=== PATIENT | female | born 1965 | race Caucasian/White ===

== ENCOUNTER → 2016-04-03 | Outpatient (CLI) | payer BC ==
[2016-03-31 12:59] VITALS: BMI 30.1
[2016-04-03 11:48] VITALS: BP 128/66; PULSE 79; RESP 16; TEMP 97.9
--- NOTE | 2016-04-03 12:37 | P.CONS ---
History of Present Illness - Reason for Consult Consult date: 04/03/16 - History of Present Illness This is the initial consultation visit for this 51 years old female with more than 5 years history of neck pain, intensity of the pain increased over the last year, she denies any history of trauma or heavy lifting, she denies any change in the bowel movement or urination, she denies any motor or sensory deficit, she reported that the neck pain associated with headache and radiated to the shoulder blade area, occasional numbness and tingling sensation in the upper extremity right side more than the left side, she tried the physical therapy, and this helped to some degree, and she was evaluated by Dr. Abreu orthopedic surgeon, and he started her on oral steroids and this helped significantly for 2 months, and later on the pain came back again, currently she is complaining of severe neck pain and headache, the neck pain increased with any neck movement, but there is no restriction to any neck movement Past Medical History Past Medical History: Musculoskeletal Disorder, Osteoarthritis (OA) Additional Past Medical History / Comment(s): BACK PAIN. History of Any Multi-Drug Resistant Organisms: None Reported Past Surgical History: No Surgical Hx Reported Additional Past Surgical History / Comment(s): ? 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 ago Past Anesthesia/Blood Transfusion Reactions: No Reported Reaction Past Psychological History: Anxiety, Depression Smoking Status: Never smoker Past Alcohol Use History: None Reported Past Drug Use History: None Reported - Past Family History Mother Family Medical History: No Reported History Medications and Allergies Home Medications Medication Instructions Recorded Confirmed Type buPROPion HCL [Wellbutrin XL] 300 mg PO DAILY 03/31/16 04/03/16 History lamoTRIgine [LaMICtal] 400 mg PO DAILY 03/31/16 04/03/16 History traZODone HCL 50 mg PO BID 03/31/16 04/03/16 History Allergies Allergy/AdvReac Type Severity Reaction Status Date / Time No Known Allergies Allergy Verified 04/03/16 11:32 Physical Exam Vitals: Vital Signs Temp Pulse Resp BP Pulse Ox 04/03/16 11:39 97.9 F 79 16 128/66 99 Social history : not smoker , NO ETOH , NO Illegal drugs use Review of Systems : 1- Constitutional : no chills , no fever , no night sweats , 2- Ears : no ear discharge , no change in hearing 3-Nose, Mouth ,Throat ; no bleeding gums, no sore throat , no epistaxis , 4-Cardiovascular : Denies chest pain, , no orthopnea , no palpitation 5-Respiratory : Denies cough , no dyspnea , no hemoptysis 6-Gastrointestinal :, no change in bowel habits , no coffee- ground emesis . 7-Genitourinary : No hematuria , no discharge , no incontinence, 8-Musculoskeletal : No gait dysfunction , report low back pain , 9- Neurological : no ataxia , no tremor , no sezure , 10-Psychatric , no suicidal ideation no hallucination 11- Endocrine : no cold intolerence , no polyuria , no polydypsia , 12-Hematologic : no easy bleeding , no easy brusing , 13-Allergic / immunology : no angioedema , no wheezing ,no allergic rhinitis 14-Integumentary : no brttle nails , no change hair / nails , no foot/leg ulcers . Physical Examinations : 1-Constitutional : Cooperative , not in acute distress . 2-HEENT : nech ; supple , no Lymphadenopathy , no Thyromegaly , eyes , no icterus, no photophobia . ENT : , normal oropharynx , no Thrush 3- Respiratory : Chest clear to auscultations Bilaterally , no wheezing . 4- Cardiovascular : regular rate and rhythem , S1 , S2 , no S3 , no S4. 5- Gastrointestinal: abdomen soft no tenderness , no organomegally . 6- Genitourinary : Defferred . 7-Integumentary : No cellulitis , no ulcers , normal skin turgor , no cyanotic . 8- neurologic : Cranial nerve II to XII intact , no focal neurological deffecit 9-psychatric : alert , oriented X 3 , appropriate affect , intact judgment and insight . 10-Lymphatic : no Lymphadenopathy. 11- musculoskeltal: normal gait , exams of the cervical spine = motor stregnth in the deltoid and biceps, normal right side , normal Left side , motor stregnth biceps and the wrist extensors normal right side ,normal left side . motor stregnth in the triceps muscle . normal Right side , normal Left side deep tendon reflexes normal at the biceps , normal at Brachioradialis , normal at triceps. positive cervical facet loading test . exams of the Lumber spine = moter stegnth lower extremities , thigh and legs 5/5 Right side , 5/5 Left side Results Comments: MRI of the cervical spine= C5 6 disc herniation, and C6 7 disc bulging, and cervical facet arthropathy, multilevel foraminal encroachment Assessment and Plan Plan: Assessment and plan = -Chronic neck pain secondary to cervical degenerative disc disease, cervical herniated disc disease , cervical spondylosis with cervical facet arthropathy, without myelopathy , cervicogenic headache - diagnoses, prognosis, and treatment options including but not limited to physical therapy, surgical interventions, interventional therapies and medication management including narcotics and adjuvant medication were discussed with the patient and all questions answered to the patient's satisfaction. -medications= 1-she could benefit from Neurontin 100 mg 3 times a day, continue Motrin 800 mg 3 times a day -procedure= scheduled patient to our cervical epidural steroid injection, and if she continued to have pain after the epidural steroid injection , then we will consider doing diagnostic medial branch block cervical area. Time with Patient: Greater than 30
== END | disposition home or self-care (01) ==
LOC: PNWHC3 11:06
PROVIDERS: ATTEND Specialist
DX: M50.30 Other cervical disc degeneration, unspecified cervical region (principal); M50.20 Other cervical disc displacement, unspecified cervical region; M47.812 Spondylosis without myelopathy or radiculopathy, cervical region; M46.92 Unspecified inflammatory spondylopathy, cervical region; R51 Headache; Z79.899 Other long term (current) drug therapy; M19.90 Unspecified osteoarthritis, unspecified site
CPT/HCPCS: 99211

== ENCOUNTER 2016-04-07 08:53 | Day surgery (SDC) | payer BC ==
[2016-04-05 08:54] VITALS: BMI 30.9
[~2016-04-07 08:53] MED LIST: LACTATED RINGERS 1,000 ML IV SCH
[2016-04-07] MEDS ORDERED: LIDOCAINE 1% 20 ML VIAL (10MG/ML) FOR IV START INTRADERMA ONE (09:50)
[2016-04-07 10:00] VITALS: TEMP 98
[2016-04-07] MEDS ORDERED: MIDAZOLAM 2 MG/2 ML VIAL ONE (11:07)
[2016-04-07] MEDS ORDERED: TRIAMCINOLONE ACETONIDE 40 MG/ML 1 ML VIAL ONE (11:07)
[2016-04-07] MEDS ORDERED: fentaNYL (PF) 50 MCG/ML 2 ML AMP ONE (11:07)
[2016-04-07] MEDS ORDERED: IOHEXOL 180 MG/ML 1 ML ML ONE (11:07)
--- NOTE | 2016-04-07 11:27 | P.PCN ---
Date of Procedure: 04/07/16 Procedure(s) Performed: . PROCEDURE 1. Cervical epidural steroid injection under fluoroscopic guidance, C7-T1 2. Cervical epidurogram. PREOPERATIVE DIAGNOSIS: 1- Cervical Degenerative Disc Diseases 2- Cervical herniated disc disease., 3-cervical spondylosis with cervical Facet arthropathy without myelopathy POSTOPERATIVE DIAGNOSIS: : 1- Cervical Degenerative Disc Diseases , 2- Cervical herniated disc disease. 3-,cervical spondylosis with cervical Facet arthropathy without myelopathy ANESTHESIA: Local anesthesia with 1% lidocaine and IV sedation with Versed 3 mg and Fentanyl 100 mcg. EBL 0 PROCEDURE INDICATION: The patient with neck pain and radiculitis unresponsive to conservative treatment consents for procedure. PROCEDURE DESCRIPTION / TECHNIQUE: The patient was seen and identified in the preoperative area. Risks, benefits, complications, including but not limited to infections ,bleeding , allergic reactions to the medications ,and not complete pain releife, and alternatives were discussed with the patient, the patient agreed to proceed with the procedure and signed the consent. Patient was taken to the OR and time out was completed. The patient was placed in the prone position on the procedure table. A pillow was placed under the patients chest to increase the cervical interlaminar space. The cervical area was prepped and draped in the usual sterile fashion. Vital signs were closely monitored during the procedure. Conscious sedation was used during the procedure to decrease patients anxiety. Using anterior-posterior fluoroscopy, the C7-T1 interlaminar space was identified and the skin over this site was marked and then infiltrated with 1% lidocaine subcutaneously. Subsequently, a 20-gauge 3-1/2-inch Tuohy epidural needle was inserted and advanced toward the epidural space by means of the hanging-drop technique and guided by AP and lateral fluoroscopy. The correct needle position in the epidural space was verified with the injection of 2 mL of the water soluble contrast dye Isovue-180 and observing an excellent epidurogram with the epidural spread of the dye, after negative aspiration for blood and CSF and in the absence of paresthesias. Again after negative aspiration, mixture containing 20 mg Dexamethasone and 2 ml of preservative- free normal saline injected and a washout of epidurogram was seen. Needle was withdrawn intact, skin was cleansed, and bandages were applied. Complications= none. Disposition= patient was placed in supine position and transferred to the recovery room area in stable condition and there was no evidence of upper or lower extremity motor or sensory deficit after the procedure patient was discharged from recovery room after discharge criteria met and home discharge instructions was given by the staff and patient will follow with the pain clinic in 2-4 weeks
[2016-04-07] MEDS ORDERED: IV FLUID CONTINUATION 300 ML IV ONE ×2 (11:30)
[2016-04-07 12:01] VITALS: RESP 18
[2016-04-07 12:03] VITALS: BP 105/67; PULSE 78
--- NOTE | 2016-04-07 12:07 | FL ---
EXAMINATION TYPE: FL guided pain mgmt statistic DATE OF EXAM: 04/07/2016 11:33 AM FLUOROSCOPY Fluoroscopy time of 3 seconds was used during cervical epidural injection. 1 image/s document/s the procedure.
--- NOTE | 2016-04-07 12:51 | P.PN ---
Progress Note - Text This is an addendum to the note dictated today= patient reported that she had frequent episodes of headache, and she is requesting medication to her headache ,she already tried Imitrex without any benefit, and she is having 4-5 episodes of migraine headache every week, for this reason I will start her on amitriptyline 10 mg daily at bedtime, and this will be given to help her sleep because patient had difficulty sleeping at night, and adjuvant to help her pain , and patient instructed to stop taking trazodone, and she is giving us a prescription for Fioricet 1 tablet by mouth every 8 hours when necessary for headache dispense 30
== END 2016-04-07 12:55 | disposition home or self-care (01) ==
LOC: ORPAIN 08:53
PROVIDERS: ATTEND Specialist
DX: G89.29 Other chronic pain (principal); M54.2 Cervicalgia; M50.30 Other cervical disc degeneration, unspecified cervical region; M50.20 Other cervical disc displacement, unspecified cervical region; M47.812 Spondylosis without myelopathy or radiculopathy, cervical region; M46.92 Unspecified inflammatory spondylopathy, cervical region; R51 Headache; M19.90 Unspecified osteoarthritis, unspecified site; F41.9 Anxiety disorder, unspecified; F32.9 Major depressive disorder, single episode, unspecified; Z79.1 Long term (current) use of non-steroidal anti-inflammatories (NSAID); Z79.899 Other long term (current) drug therapy
CPT/HCPCS: 81025; 62321; J2250; J3301; Q9965; J3010

== ENCOUNTER → 2016-04-20 | Outpatient (CLI) | payer BC ==
[2016-04-20 12:26] VITALS: BP 124/83; PULSE 67; RESP 18
--- NOTE | 2016-04-20 16:08 | P.PN ---
Subjective This is follow-up visit for this patient with a history of severe and chronic neck pain, and headache pain secondary to cervical degenerative disc disease, cervical spondylosis , we have done interventional pain management injection, cervical epidural steroid injectionx1 and patient had good pain relief, and is currently on pain medications 1- amitriptyline 10 mg daily at bedtime 2- Fioricet (short-term) she stopped using it because she has no benefit from ) 3-Neurontin 100 mg every 8 hours 4-Motrin 800 mg every 8 hours when necessary Patient denies any side effects of the medication, denies excessive drowsiness or sleepiness, denies suicidal ideation, and reports that the current pain medication is NOT helping To control the pain and improve activity of daily living Physical Examinations : 1-Constitutiona : Cooperative , not in acute distress . 2-HEENT : nech ; supple , no Lymphadenopathy , no Thyromegaly , normal thyroid size . eyes : no ptosis , no icterus, no photophobia . ENT : normal of hearing , normal oropharynx , no Thrush . 3- Respiratory : Chest clear to auscultations Bilaterally , no wheezing , no Rhonchi . 4- Cardiovascular : regular rate and rhythem , S1 , S2 , no S3 , no S4. 5- Gastrointestinal : abdomen soft no tenderness , bowel sounds positive all four quadrents , no organomegally . 6- Genitourinary : Defferred . 7- neurologic : Cranial nerve II to XII intact , no focal neurological deffecit . 8-psychatric : alert , oriented X 3 , appropriate affect , intact judgment and insight . 9-Lymphatic : no Lymphadenopathy . 10- musculoskeltal : exams of the cervical spine = motor strength normal bilateral upper extremities facet loading test cervical area positive. Assessment and plan = - Chronic low back pain secondary to cervical degenerative disc disease , cervical spondylosis The patient was counseled about risk of opioid use, psychological risk associated with opioids and was orally counseled to not overuse , abuse , divert ,or sell dictations to take medications as prescribed only , and to restore medication in safe location , and patient counseled against driving while using narcotic medications, and also not to use alcohol or any illicit recreational drugs the patient's verbalized understanding that the lack of compliance will result in failure to renew narcotic prescription and possible discharge from the clinic - diagnoses, prognosis, and treatment options including but not limited to physical therapy, surgical interventions, interventional therapies and medication management including narcotics and adjuvant medication were discussed with the patient and all questions answered to the patient's satisfaction. -medication refile =1-Neurontin 100 mg every 8 hours dispense 90 with 1 refill 2-continue Motrin 800 mg every 8 hours when necessary 3-increase amitriptyline to 20 mg daily at bedtime , patient given prescription for Preston 5/325 every 6 hours when necessary for pain dispense 20 , patient taking care psychiatric medication for this reason she is not a candidate of Ultram/tramadol because of risk of serotonin syndrome ( combination between Ultram and Lamictal ) And patient already scheduled to have repeat cervical epidural steroid injections Objective - Vital Signs Vital signs: Vital Signs Temp Pulse 67 04/20/16 12:17 Resp 18 04/20/16 12:17 BP 124/83 04/20/16 12:17 Pulse Ox 100 04/20/16 12:17 Intake & Output 04/19/16 04/20/16 04/20/16 18:59 06:59 18:59 Weight 77.111 kg
== END | disposition home or self-care (01) ==
LOC: PNWHC3 11:34
DX: M50.30 Other cervical disc degeneration, unspecified cervical region (principal); M47.892 Other spondylosis, cervical region; Z79.899 Other long term (current) drug therapy
CPT/HCPCS: 99211

== ENCOUNTER 2016-05-11 09:32 | Day surgery (SDC) | payer BC ==
[2016-05-11 10:00] VITALS: RESP 16; TEMP 97.9
[2016-05-11] MEDS ORDERED: LIDOCAINE 1% 20 ML VIAL (10MG/ML) FOR IV START INTRADERMA ONE (10:00)
[2016-05-11] MEDS ORDERED: IOHEXOL 180 MG/ML 1 ML ML ONE (10:56)
[2016-05-11] MEDS ORDERED: DEXAMETHASONE SOD PHOS (MDV) 100 MG/10 ML VIAL ONE (10:56)
[2016-05-11] MEDS ORDERED: MIDAZOLAM 2 MG/2 ML VIAL ONE (10:56)
[2016-05-11] MEDS ORDERED: fentaNYL (PF) 50 MCG/ML 2 ML AMP ONE (10:56)
--- NOTE | 2016-05-11 11:26 | P.PCN ---
Date of Procedure: 05/11/16 Surgeon: Moses Fish Pathology: none sent Condition: stable Disposition: PACU Description of Procedure: PREOPERATIVE DIAGNOSIS: Cervical radiculopathy. POSTOPERATIVE DIAGNOSIS: Cervical radiculopathy. PROCEDURE 1. Cervical epidural steroid injection under fluoroscopic guidance, C7-T1 level. 2. Cervical epidurogram. ANESTHESIA: Local anesthesia with 1% lidocaine and IV sedation with versed/ fentanyl. EBL: Minimal PROCEDURE INDICATION: The patient with neck pain and radiculitis (worse on right side) unresponsive to conservative treatment consents for procedure, cervical epidural steroid injection #2 today. No use of blood thinners. PROCEDURE DESCRIPTION / TECHNIQUE: The patient was seen and identified in the preoperative area. Risks, benefits, complications, and alternatives were discussed with the patient (including but not limited to incomplete pain relief, bleeding, infection, nerve damage, and allergies to medications), the patient agreed to proceed with the procedure and signed the consent after all questions were answered. Patient was taken to the OR and time out was completed to verify proper patient , position, laterality of pain, and allergies. Pt was placed in the prone position. A pillow was placed under the patients chest to increase the cervical interlaminar space. The cervical area was prepped and draped in the usual sterile fashion. Critical pause was taken. Vital signs were closely monitored during the procedure. Conscious sedation was used during the procedure to decrease patients anxiety. Using anterior-posterior fluoroscopy, the C7-T1 interlaminar space was identified and the skin over this site was marked and then infiltrated with 1% lidocaine subcutaneously in a right paramedian fashion. Subsequently, a 20- gauge 3-1/2-inch Tuohy epidural needle was inserted and advanced toward the epidural space by means of the loss of resistance technique and guided by AP and lateral fluoroscopy. After negative aspiration for blood or CSF and in the absence of paresthesias, the correct needle position in the epidural space was verified with the injection of 1 mL of the water soluble contrast dye Omnipaque- 180 and observing an excellent epidurogram with the epidural spread of the dye, after negative aspiration for blood and CSF and in the absence of paresthesias. Again after negative aspiration, a 5 ml mixture containing 10 mg of Decadron and 4 ml of preservative free Normal Saline solution was injected and a washout of epidurogram was seen. Needle was withdrawn intact, skin was cleansed, and bandages were applied. COMPLICATIONS: None COMMENTS: DISPOSITION / PLANS: The patient was placed in a supine position and transferred to the recovery area in a stable condition for observation. There was no evidence of upper extremity motor or sensory deficit after the procedure. Patient was discharged from the recovery room after meeting discharge criteria. Home discharge instructions were given to the patient by the staff. The patient was reexamined prior to discharge. The patient will schedule a follow up injection in 4-6 weeks.
[2016-05-11 11:44] VITALS: BP 104/72; PULSE 65
[2016-05-11] MEDS ORDERED: LACTATED RINGERS 1,000 ML IV ONE (11:47)
--- NOTE | 2016-05-11 11:47 | FL ---
FLUOROSCOPY 7 seconds of fluoroscopy time were utilized during Pain Injection. 3 images document the procedure.
--- NOTE | 2016-05-14 05:12 | CDI ---
Dear. Dr. Fish, Per your procedure note, Conscious Sedation with Versed/Fentanyl was documented. The Pain Procedure Record, however, has MAC checked off in the [facility] Plan. This is conflicting documentation and needs clarification for proper reporting purposes. Please clarify if the anesthesia provided Segundo Moser was MAC (Monitored Anesthesia Care) or Conscious/Moderate Sedation. Please document this clarification as an addendum to the procedure note. Thank you for your time, Samantha Soria, [facility] [employer] [email or web address]
== END 2016-05-11 13:07 | disposition home or self-care (01) ==
LOC: ORPAIN 09:32
PROVIDERS: ATTEND Anesthesiology
DX: G89.29 Other chronic pain (principal); M54.2 Cervicalgia; M54.12 Radiculopathy, cervical region; R51 Headache; F33.9 Major depressive disorder, recurrent, unspecified; Z79.1 Long term (current) use of non-steroidal anti-inflammatories (NSAID); Z79.891 Long term (current) use of opiate analgesic; Z79.899 Other long term (current) drug therapy
CPT/HCPCS: 81025; 62321; J2250; Q9965; J3010; J1100

== ENCOUNTER 2016-06-15 11:38 | Day surgery (SDC) | payer BC ==
[2016-06-15 13:54] VITALS: TEMP 97.8
[2016-06-15] MEDS ORDERED: LIDOCAINE 1% 20 ML VIAL (10MG/ML) FOR IV START INTRADERMA ONE (13:57)
[2016-06-15] MEDS ORDERED: DEXAMETHASONE SOD PHOSPHATE 10 MG/ML 1 ML VIAL ONE (14:41)
[2016-06-15] MEDS ORDERED: MIDAZOLAM 2 MG/2 ML VIAL ONE (14:41)
[2016-06-15] MEDS ORDERED: IOHEXOL 180 MG/ML 1 ML ML ONE (14:41)
[2016-06-15] MEDS ORDERED: fentaNYL (PF) 50 MCG/ML 2 ML AMP ONE (14:41)
--- NOTE | 2016-06-15 14:57 | P.PCN ---
Date of Procedure: 06/15/16 Procedure(s) Performed: . PROCEDURE 1. Cervical epidural steroid injection under fluoroscopic guidance, C7-T1 ( right paramedian approach) 2. Cervical epidurogram. PREOPERATIVE DIAGNOSIS: 1- Cervical Degenerative Disc Diseases 2- Cervical herniated disc disease 3-cervical spondylosis with cervical Facet arthropathy without myelopathy POSTOPERATIVE DIAGNOSIS: : 1- Cervical Degenerative Disc Diseases , 2- Cervical herniated disc disease 3-,cervical spondylosis with cervical Facet arthropathy without myelopathy ANESTHESIA: Local anesthesia with 1% lidocaine 3 ml , and IV sedation with Versed 2 mg and Fentanyl 100 mcg. EBL 0 PROCEDURE INDICATION: The patient with neck pain and radiculitis unresponsive to conservative treatment consents for procedure. PROCEDURE DESCRIPTION / TECHNIQUE: The patient was seen and identified in the preoperative area. Risks, benefits, complications, including but not limited to infections ,bleeding , allergic reactions to the medications ,and not complete pain releife, and alternatives were discussed with the patient, the patient agreed to proceed with the procedure and signed the consent. Patient was taken to the OR and time out was completed. The patient was placed in the prone position on the procedure table. A pillow was placed under the patients chest to increase the cervical interlaminar space. The cervical area was prepped and draped in the usual sterile fashion. Vital signs were closely monitored during the procedure. Conscious sedation was used during the procedure to decrease patients anxiety. Using anterior-posterior fluoroscopy, the C7-T1 interlaminar space was identified and the skin over this site was marked and then infiltrated with 1% lidocaine subcutaneously. Subsequently, a 20-gauge 3-1/2-inch Tuohy epidural needle was inserted and advanced toward the epidural space by means of the `` hanging-drop technique and guided by AP and lateral fluoroscopy. The correct needle position in the epidural space was verified with the injection of 2 mL of the water soluble contrast dye Isovue-180 and observing an epidurogram with the epidural spread of the dye, after negative aspiration for blood and CSF and in the absence of paresthesias. Again after negative aspiration, mixture containing 20 mg Dexamethasone and 2 ml of preservative-free normal saline injected and a washout of epidurogram was seen. Needle was withdrawn intact, skin was cleansed, and bandages were applied. Complications= none. Disposition= patient was placed in supine position and transferred to the recovery room area in stable condition and there was no evidence of upper or lower extremity motor or sensory deficit after the procedure patient was discharged from recovery room after discharge criteria met and home discharge instructions was given by the staff and patient will follow with the pain clinic in 2-4 weeks
[2016-06-15] MEDS ORDERED: IV FLUID CONTINUATION 1,000 ML IV ONE (15:03)
[2016-06-15 15:06] VITALS: RESP 18
--- NOTE | 2016-06-15 15:16 | FL ---
EXAMINATION TYPE: FL guided pain mgmt statistic DATE OF EXAM: 06/15/2016 2:59 PM CLINICAL HISTORY: Neck pain. TECHNIQUE: Fluoroscopy. COMPARISON: None. FINDINGS: Fluoroscopic guidance was provided during pain relief procedure performed by Dr. Abad . A total of 7 seconds of fluoroscopic time was utilized during the procedure and 1 spot image is ac quired. Single image acquired shows needle localization at level of upper thoracic spine. IMPRESSION: As Above.
[2016-06-15 15:20] VITALS: BP 96/56; PULSE 68
== END 2016-06-15 15:47 | disposition home or self-care (01) ==
LOC: ORPAIN 11:38
PROVIDERS: ATTEND Specialist
DX: M50.30 Other cervical disc degeneration, unspecified cervical region (principal); M50.20 Other cervical disc displacement, unspecified cervical region; M47.812 Spondylosis without myelopathy or radiculopathy, cervical region; M46.92 Unspecified inflammatory spondylopathy, cervical region
CPT/HCPCS: 81025; 62321; J2250; J1100; Q9965; J3010

== ENCOUNTER → 2016-07-12 | Outpatient (CLI) | payer BC ==
[2016-07-12 15:04] VITALS: BP 120/77; PULSE 75; RESP 16
--- NOTE | 2016-07-13 12:31 | P.CONS ---
History of Present Illness - Reason for Consult Consult date: 07/12/16 - History of Present Illness This is follow-up visits for this 51 years old female with chronic history of severe neck pain with radiation to the upper extremity , he was diagnosed with cervical herniated disc disease and cervical degenerative disc disease and cervical facet arthropathy, status post cervical epidural steroid injections 3 , she reported that her neck pain improved significantly and currently, she has no motor or sensory deficit and she had multiple around 2/10, and is satisfied with the result of the treatment that she is currently complaining of severe low back pain mostly in the left buttock area, she denies any fever or night sweats no change in the bowel movement or urination and no motor or sensory deficit in the upper or lower extremities, she is currently on [place] 7.5/325 every 6 hours and Neurontin 100 mg twice a day, Motrin 800 mg 3 times a day, and denies any side effects of the medication she denies any excessive drowsiness or sleepiness and she denies any suicidal ideation Past Medical History Past Medical History: Musculoskeletal Disorder, Osteoarthritis (OA) Additional Past Medical History / Comment(s): BACK PAIN. History of Any Multi-Drug Resistant Organisms: None Reported Past Surgical History: No Surgical Hx Reported Past Anesthesia/Blood Transfusion Reactions: No Reported Reaction Past Psychological History: Anxiety, Depression Smoking Status: Never smoker Past Alcohol Use History: None Reported Past Drug Use History: None Reported - Past Family History Mother Family Medical History: No Reported History Medications and Allergies Home Medications Medication Instructions Recorded Confirmed Type buPROPion HCL [Wellbutrin XL] 300 mg PO DAILY 03/31/16 07/12/16 History lamoTRIgine [LaMICtal] 400 mg PO DAILY 03/31/16 07/12/16 History traZODone HCL [Desyrel] 50 mg PO HS 05/11/16 07/12/16 History Allergies Allergy/AdvReac Type Severity Reaction Status Date / Time No Known Allergies Allergy Verified 07/12/16 14:14 Physical Exam Vitals: Vital Signs Pulse Resp BP Pulse Ox 07/12/16 14:17 75 16 120/77 98 Physical Examinations : 1-Constitutiona : Cooperative , not in acute distress . 2-HEENT : nech ; supple , no Lymphadenopathy , no Thyromegaly , normal thyroid size . eyes : no ptosis , no icterus, no photophobia . ENT : normal of hearing , normal oropharynx , no Thrush . 3- Respiratory : Chest clear to auscultations Bilaterally , no wheezing , no Rhonchi . 4- Cardiovascular : regular rate and rhythem , S1 , S2 , no S3 , no S4. 5- Gastrointestinal : abdomen soft no tenderness , bowel sounds positive all four quadrents , no organomegally . 6- Genitourinary : Defferred . 7- neurologic : Cranial nerve II to XII intact , no focal neurological deffecit . 8-psychatric : alert , oriented X 3 , appropriate affect , intact judgment and insight . 9-Lymphatic : no Lymphadenopathy . 10- musculoskeltal : exams of the cervical spine = normal motor stregnth in the deltoid and biceps, normal motor stregnth biceps and the wrist extensors (C6) normal motor stregnth in the triceps muscle . deep tendon reflexes normal at the biceps , , normal at Brachioradialis , normal at triceps. positive cervical facet loading test . exams of the Lumber spine = normal moter stegnth lower extremities ,thigh and legs .5/5 deep tendon reflexes : normal Knee Jerk , normal ankle Jerk Sever tenderness over the Sacroiliac joint on the Left side Assessment and Plan Plan: Assessment and plan = -Left sacroiliitis (new ) -Chronic neck pain secondary to cervical degenerative disc disease, cervical herniated disc disease , cervical spondylosis with cervical facet arthropathy without myelopathy .(Pain improved after the cervical epidural steroid injections ) -chronic and current use of high-risk medication (Opioids). The patient was counseled about risk of opioid use, psychological risk associated with opioids discussed with the patient, body mass index and exercise. Patient signed the narcotic agreement , and was orally counseled not to overuse , abuse , divert, or sell medications ,and take them as prescribed only , and the patient was counseled against driving and while you are using the narcotic medication also not to use alcohol or any illicit drugs and the patient verbalized understanding that lack of compliance and could result in failure to renew narcotics prescriptions and possible discharge from the clinic - diagnoses, prognosis, and treatment options including but not limited to physical therapy, surgical interventions, interventional therapies and medication management including narcotics and adjuvant medication were discussed with the patient and all questions answered to the patient's satisfaction. -medication refile =1-[place] 7.5/325 every 6 hours dispense 120 with 2 refill 2-Neurontin 100 mg every morning and limited milligrams 2 tablets daily at bedtime dispense to 270 3-Motrin 800 mg every 8 hours dispense 180 -procedure= schedule patient to have left side sacroiliac joint steroid injections under fluoroscopy guidance ,and we will order urine drug screen today Time with Patient: Less than 30
== END | disposition home or self-care (01) ==
LOC: PNWHC3 13:52
PROVIDERS: ATTEND Specialist
DX: M50.20 Other cervical disc displacement, unspecified cervical region (principal); M50.30 Other cervical disc degeneration, unspecified cervical region; M47.812 Spondylosis without myelopathy or radiculopathy, cervical region; M46.96 Unspecified inflammatory spondylopathy, lumbar region; M46.1 Sacroiliitis, not elsewhere classified; M19.90 Unspecified osteoarthritis, unspecified site; Z79.891 Long term (current) use of opiate analgesic
CPT/HCPCS: 80307; 80364; 99211

== ENCOUNTER 2016-08-10 06:28 | Day surgery (SDC) | payer BC ==
[2016-08-08 14:12] VITALS: BMI 30.1
[2016-08-10 06:50] VITALS: TEMP 98.2
[2016-08-10] MEDS ORDERED: LACTATED RINGERS 1,000 ML IV ONE (06:58)
[2016-08-10] MEDS ORDERED: LIDOCAINE 1% 20 ML VIAL (10MG/ML) FOR IV START INTRADERMA ONE (06:58)
[2016-08-10] MEDS ORDERED: TRIAMCINOLONE ACETONIDE 40 MG/ML 1 ML VIAL ONE (07:19)
[2016-08-10] MEDS ORDERED: IOHEXOL 180 MG/ML 1 ML ML ONE (07:19)
[2016-08-10] MEDS ORDERED: fentaNYL (PF) 50 MCG/ML 2 ML AMP ONE (07:19)
[2016-08-10] MEDS ORDERED: BUPIVACAINE (PF) 0.5% 30 ML VIAL ONE (07:19)
[2016-08-10] MEDS ORDERED: MIDAZOLAM 2 MG/2 ML VIAL ONE (07:19)
[2016-08-10] MEDS ORDERED: LACTATED RINGERS 1,000 ML IV SCH (07:30)
[2016-08-10] MEDS ORDERED: IV FLUID CONTINUATION 1,000 ML IV ONE (07:33)
--- NOTE | 2016-08-10 07:47 | P.PCN ---
Date of Procedure: 08/10/16 Preoperative Diagnosis: Postoperative Diagnosis: Procedure(s) Performed: Implants: Surgeon: Moses Fish Pathology: none sent Condition: stable Disposition: PACU Indications for Procedure: Operative Findings: Description of Procedure: PREOPERATIVE DIAGNOSIS: 1-Bilateral sacroiliitis. 2 Lumbar DDD POSTOPERATIVE DIAGNOSIS:. 1-Bilateral sacroiliitis. 2 Lumbar DDD PROCEDURES: Bilateral Sacroiliac joint steroid injection with fluoroscopic guidance ANESTHESIA: Local with 1% lidocaine; conscious sedation EBL: Minimal. PROCEDURE INDICATIONS: This patient with a history of low back pain secondary to sacroiliitis and lumbar DDD unresponsive to conservative management. No use of blood thinners. PROCEDURE DESCRIPTION: The patient was seen and identified in the preoperative area. Risks, benefits, complications, and alternatives were discussed with the patient (including but not limited to incomplete pain relief, bleeding, infection, nerve damage, and allergies to medications), the patient agreed to proceed with the procedure and signed the consent after all questions were answered. Patient was taken to the OR and time out was completed to verify proper patient , position, laterality of pain, and allergies. Pt was placed in the prone position and a pillow was placed under the abdomen to reduce lumbar lordosis. The lumbosacral area was prepped and draped in the usual sterile fashion. Critical pause was taken. Vital signs were closely monitored during the procedure. The fluoroscopic camera was placed in contralateral oblique view and right sacroiliiac joint lower pole was identified. After local infiltration with 1% lidocaine 2 ml, Subsequently, a 22-gauge 3.5 inch spinal needle was introduced into the posteroinferior aspect of the right sacroiliac joint under direct fluoroscopic visualization. Subsequently, 3 ml of a solution of a total of 6 ml solution containing total 4 mL of 0.5% preservative-free bupivicaine mixed with 80 mg of Kenalog was injected after negative aspiration for CSF, blood, and air and negative for paresthesia. The entire procedure was repeated on the left side as above. Needle was withdrawn intact. Skin was cleansed, and bandages were applied. COMPLICATIONS: None. COMMENTS: DISPOSITION / PLANS: The patient was placed in a supine position and transferred to the recovery area in a stable condition for observation and was discharged from the recovery room after meeting discharge criteria. Home discharge instructions given to the patient by the staff. The patient was reexamined prior to discharge and there were no issues. The patient will schedule a follow up in the clinic in 2-4 weeks.
[2016-08-10 08:02] VITALS: RESP 18
[2016-08-10 08:11] VITALS: BP 111/79; PULSE 65
--- NOTE | 2016-08-10 08:12 | FL ---
EXAMINATION TYPE: FL guided pain mgmt statistic DATE OF EXAM: 08/10/2016 7:41 AM CLINICAL HISTORY: Low back and sacroiliac joint pain. TECHNIQUE: Fluoroscopy. COMPARISON: None. FINDINGS: Fluoroscopic guidance was provided during pain relief procedure performed by Dr. Abad . A total of 18 seconds of fluoroscopic time was utilized during the procedure and 3 spot images are acquired. Images acquired shows needle localization at level of the bilateral sacroiliac joints. IMPRESSION: As Above.
== END 2016-08-10 08:25 | disposition home or self-care (01) ==
LOC: ORPAIN 06:28
PROVIDERS: ATTEND Specialist
DX: M46.1 Sacroiliitis, not elsewhere classified (principal); M51.36 Other intervertebral disc degeneration, lumbar region; F41.9 Anxiety disorder, unspecified; F32.9 Major depressive disorder, single episode, unspecified; Z79.899 Other long term (current) drug therapy; Z79.891 Long term (current) use of opiate analgesic
CPT/HCPCS: 81025; 27096; J2250; J3301; Q9965; J3010

== ENCOUNTER → 2016-10-04 | Outpatient (CLI) | payer BC ==
[2016-10-04 11:53] VITALS: BP 118/79; PULSE 94; RESP 18; TEMP 97.4
--- NOTE | 2016-10-04 12:32 | P.PN ---
Progress Note - Text Patient returns for followup for chronic neck and back pain with radiation to arms and L > R hip. Patient recently underwent YAYA series, which provided some relief for 2 months' interval. Patient continues on [place]/Neurontin/ Motrin medications for pain with good relief. Patient denies adverse drug effects from medications. Today, pt denies new-onset weakness, bowel/bladder incontinence, or any other signs or symptoms of cauda equina syndrome. There are no signs of acute intoxication, and no indications of medication diversion or overuse. In addition to above, 13-point review of systems is also negative for chest pain , shortness of breath, changes in vision, changes in hearing, new onset weakness , abdominal pain, diarrhea, extreme fatigue, malaise, fever, skin changes, homicidal or suicidal ideation, or bowel or bladder incontinence. Vital Signs: Reviewed in EMR Gen: WDWN, AAOx3, NAD HEENT: NCAT, EOMI, hearing grossly normal Pulm: resp unlabored Abd: soft, NT, ND Neck: supple, trachea midline ROM in flexion cervical spine: reduced ROM in extension cervical spine: reduced Cervical paravertebral tenderness: + Cervical Facet tenderness: neg Spurling's: + LUE ROM in flexion lumbar spine: full ROM in extension lumbar spine: reduced Lumbar paravertebral tenderness: + Facet loading: + bilateral SI joint tenderness: +L side Cesar's test: + L side >> R side Straight leg raise: neg Neuro: CN II-XII grossly intact, muscle strength lower extremities PRESERVED Imaging: Reviewed in EMR Assessment: 1. cervical radic 2. sacroiliitis 3. chronic pain syndrome Plan: 1. Explanation: Opioid and psychological risk scores were reviewed. Diagnoses , prognoses, and multiple treatment options including but not limited to physical therapy, interventional therapies, adjuvant medical therapies, narcotic medication therapies, and surgery were discussed with the patient and all questions were answered to the patient's satisfaction. 2. Opioid agreement: Patient has previously signed narcotic agreement, and was orally counseled to not overuse, abuse, divert, or cell medications, and to take them as prescribed by only 1 healthcare provider. The patient was also counseled to store opioid medications in a safe and preferably locked location. Patient was also counseled against driving or operating heavy equipment while using narcotic medications and also to not use alcohol or any illicit or recreational drugs. The patient verbalized understanding that lack of compliance with any of the above and likely result in failure to renew narcotic prescriptions, possible discharge from the clinic, and possible legal ramifications thereafter if indicated. 3. Counseling: The patient was counseled extensively on SMOKING CESSATION, BODY MASS INDEX, EXERCISE. Specifically, the patient was instructed regarding the importance of smoking cessation, weight control, and exercise in the context of both chronic pain and overall health. 4. Procedures: SIJ injection in 4 weeks, then cervical DADA in 8 weeks 5. Consultations: None 6. Investigations: None 7. Medications: [place] 7.5/325 #120 with one refill, Motrin and Neurontin with refills 8. Disposition: f/u for procedure as scheduled; anticipate decreasing [place] to #90 at next clinic visit as patient is not using 4 pills/day PQRS measures: 1-Patient's medications are documented in the chart. 2-Tobacco use is negative 3-Patient has not had a pneumococcal vaccine. 4-Advanced care planning discussed, patient unable to give. 5-Opioid contract signed with the patient. 6-Pain positive, follow-up visit or procedure scheduled 7-Patient's blood pressure measured and documented, and patient will follow up with the primary care due to hypertension. 8-Patient's weight was measured, and body mass index ABOVE the normal limits, and counseling was done. Patient instructed to follow up with PCP. 9-Patient WAS NOT identified as an unhealthy alcohol user.
== END ==
LOC: PNWHC3 11:11
PROVIDERS: ATTEND Anesthesiology
DX: M54.12 Radiculopathy, cervical region (principal); M53.3 Sacrococcygeal disorders, not elsewhere classified; Z79.891 Long term (current) use of opiate analgesic; Z79.899 Other long term (current) drug therapy
CPT/HCPCS: 99211

== ENCOUNTER 2016-10-25 08:16 | Day surgery (SDC) | payer BC ==
[2016-10-20 11:09] VITALS: BMI 30.9
[~2016-10-25 08:16] MED LIST changes: +LACTATED RINGERS 1,000 ML IV ONE; -LACTATED RINGERS 1,000 ML IV SCH
[2016-10-25 08:46] VITALS: RESP 16; TEMP 98.3
[2016-10-25] MEDS ORDERED: IV FLUID CONTINUATION 1,000 ML IV ONE ×2 (10:16)
--- NOTE | 2016-10-25 10:16 | P.PCN ---
Date of Procedure: 10/25/16 Preoperative Diagnosis: Left sacroiliitis Postoperative Diagnosis: Same as above Procedure(s) Performed: Left sacroiliac joint steroid injection under fluoroscopic guidance Implants: Anesthesia: other (Moderate conscious sedation with IV fentanyl and Versed) Surgeon: Mateo Riggins Pathology: none sent Condition: stable Disposition: PACU Indications for Procedure: Operative Findings: Description of Procedure: Patient was seen in preop holding area, consent was obtained then she was brought into the procedure room and placed in prone position. Skin was prepped with Betadine 3 and draped in a sterile manner. Lidocaine 1% was used to numb the skin up at the target point that was chosen as follows: The left sacroiliac joint was identified on the AP view of fluoroscopy then the C-arm was tilted to the right oblique position to superimpose the anterior and posterior joint lines on each other and the target point was at the inferior one third of this unified joint line, the C-arm also was tilted slightly cephalad. Then I used 22 -gauge 3-1/2 inch Quincke spinal needle to go through the skin and into the sacroiliac joint under fluoroscopic guidance and injected 40 mg of Kenalog was 2 MLS of Marcaine 0.5%. Patient tolerated procedure well.
--- NOTE | 2016-10-25 10:19 | FL ---
Fluoroscopy HISTORY: Pain 6 seconds fluoroscopy time supplied to the referring clinician. 1 intraoperative C-arm images docume nt the procedure. See dictated report from anesthesia.
[2016-10-25 10:32] VITALS: BP 108/70; PULSE 66
== END 2016-10-25 10:43 | disposition home or self-care (01) ==
LOC: ORPAIN 08:16
PROVIDERS: ATTEND Anesthesiology
DX: M46.1 Sacroiliitis, not elsewhere classified (principal)
CPT/HCPCS: 99152; G0260; 27096; 81025; 99153

== ENCOUNTER 2016-11-14 09:59 | Day surgery (SDC) | payer BC ==
[2016-11-08 15:58] VITALS: BMI 30.9
[2016-11-14 10:22] VITALS: TEMP 98
[2016-11-14] MEDS: LACTATED RINGERS 1,000 ML IV SCH ×2 (10:30→10:51)
[2016-11-14] MEDS ORDERED: LIDOCAINE 1% 20 ML VIAL (10MG/ML) FOR IV START INTRADERMA ONE (10:30)
--- NOTE | 2016-11-14 11:23 | P.PCN ---
Date of Procedure: 11/14/16 Preoperative Diagnosis: Postoperative Diagnosis: Procedure(s) Performed: Preoperative diagnoses= 1-bilateral sacroiliitis. Postoperative diagnoses= same as preoperative diagnosis. Procedure= bilateral sacroiliac joint steroid injection under fluoroscopic guidance. Anesthesia= conscious sedation with Versed 2 mg and fentanyl 100 micrograms and local infiltration with lidocaine 1% 4 ml Estimated blood loss=minimal. Procedure indication= the patient had a history of severe chronic low back pain , diagnosed with sacroiliitis , unresponsive to conservative treatment. Procedure description= the patient was seen and identified in the preoperative holding area, risks and benefits and alternative of the procedure and possible complications discussed with the patient, and he agreed with the preceding, patient signed the consent, an IV was started, and vital signs were monitored and were stable throughout the procedure, patient was placed in the prone position or table and the lumbosacral area was prepped and draped with a sterile fashion, vital signs were closely monitored during the procedure, the fluoroscopy camera was placed in the contralateral oblique view on the right sacroiliac joint and the lower part of the joint was identified, local infiltration of the skin and subcutaneous tissue with lidocaine 1% 2 mL then a 22-gauge Quincke-type spinal needle advanced slowly under fluoroscopy and placed in the posterior and inferior border of the right sacroiliac joint, placement confirmed with AP and lateral view, and after appropriate needle placement confirmed and after negative aspiration for heme and CSF and there was no paresthesia during the injection, 3 ml of Marcaine 0.5% and 40 mg of Kenalog injected after negative aspiration, the needle removed, and the entire same procedure was repeated for the left sacroiliac joint Patient tolerated the procedure well without any complication, The patient returned to supine position after the back was cleaned and a Band- Aid applied, the patient transported to recovery room in stable condition and he was monitored for 30 minutes before he was discharged home and then patient was reexamined before going home and patient was discharged in stable condition and patient will follow up with the pain clinic in a few weeks Implants: Indications for Procedure: Operative Findings: Description of Procedure:
[2016-11-14] MEDS ORDERED: IV FLUID CONTINUATION 1,000 ML IV ONE (11:31)
[2016-11-14 11:36] VITALS: RESP 16
--- NOTE | 2016-11-14 11:41 | FL ---
Fluoroscopy INDICATION: Pain FINDINGS: Fluoroscopy time: 27 seconds. Images obtained: 2. IMPRESSIONS: 1. Documentation of fluoroscopy.
[2016-11-14 12:03] VITALS: BP 130/66; PULSE 59
== END 2016-11-14 12:19 | disposition home or self-care (01) ==
LOC: ORPAIN 09:59
PROVIDERS: ATTEND Specialist
DX: M46.1 Sacroiliitis, not elsewhere classified (principal)
CPT/HCPCS: 81025; 27096; J2250; J3301; J3010; 99152; 99153

== ENCOUNTER → 2016-11-29 | Outpatient (CLI) | payer BC ==
[2016-11-29 14:04] VITALS: BP 107/76; PULSE 87; RESP 18; TEMP 98.8
--- NOTE | 2016-11-29 14:42 | P.PN ---
Progress Note - Text This is a 51-year-old female with history of neck and lower back pain due to cervical and lumbar spondylosis without myelopathy. The patient also has numbness in her left thigh and left lumbar radiculopathy. She has been on Neurontin and 4 pills a day of [place] plus Motrin 800 mg 3 times a day. She responded favorably to the last sacroiliac joint injection that she had few weeks ago. She denies any bowel or bladder dysfunction or any weakness in the lower extremities. She is applying for disability Today I will send the patient to have an MRI on the lumbar spine. I will decrease the [place] from 4to3 pills a day. I will give her 90 pills a month I will increase her Neurontin from 300 mg a day to 600 mg a day with further increasing the dose in the future. We'll continue with the Motrin however I told the patient to try to avoid using it is not needed because of its possible side effects of the stomach and the kidneys. We will see the patient 2 months from now for reevaluation
== END ==
LOC: PNWHC3 13:34
PROVIDERS: ATTEND Anesthesiology
DX: M47.816 Spondylosis without myelopathy or radiculopathy, lumbar region (principal); M47.812 Spondylosis without myelopathy or radiculopathy, cervical region; Z79.899 Other long term (current) drug therapy
CPT/HCPCS: 99211

== ENCOUNTER → 2016-12-27 | Outpatient (CLI) | payer BC ==
--- NOTE | 2016-12-27 11:30 | MR ---
EXAMINATION TYPE: MR lumbar spine wo/w con DATE OF EXAM: 12/27/2016 COMPARISON: NONE HISTORY: radiculopathy lsp CONTRAST: 7.5 mL intravenous Gadavist. TECHNIQUE: Multiplanar, multisequence images of the lumbar spine were acquired. FINDINGS: Cord terminates at the T12 level . L5-S1: No significant disc bulge or disc herniation. No spinal canal stenosis. No foraminal stenosi s. . L4-L5: No significant disc bulge or disc herniation. No spinal canal stenosis. No foraminal stenosi s. . L3-L4: No significant disc bulge or disc herniation. No spinal canal stenosis. No foraminal stenosi s. . L2-L3: There is tiny central protrusion at L2-L3 with mild anterior thecal sac compression. No stenos is is present. No spinal canal stenosis. No foraminal stenosis. . L1-L2: There is minimal central disc bulge with anterior thecal sac contact. No stenosis is present. Subligamentous disc extension is not evident. No spinal canal stenosis. No foraminal stenosis. . T12-L1: No significant disc bulge or disc herniation. No spinal canal stenosis. No foraminal stenos is. . No abnormal enhancement. IMPRESSION: 1. Minimal central disc protrusion L2-L3.
== END | disposition home or self-care (01) ==
LOC: RADMRIMAIN 07:44
PROVIDERS: ATTEND Anesthesiology
DX: M51.16 Intervertebral disc disorders with radiculopathy, lumbar region (principal)
CPT/HCPCS: 72158; A9581

== ENCOUNTER 2017-04-05 06:15 | Day surgery (SDC) | payer BC ==
[2017-03-28 23:28] VITALS: BMI 31.8
[~2017-04-05 06:15] MED LIST changes: -LACTATED RINGERS 1,000 ML IV ONE; +LACTATED RINGERS 1,000 ML IV SCH
[2017-04-05] MEDS ORDERED: LIDOCAINE 1% 20 ML VIAL (10MG/ML) FOR IV START INTRADERMA ONE (07:00)
[2017-04-05 07:08] VITALS: RESP 16; TEMP 97.4
[2017-04-05] MEDS ORDERED: IV FLUID CONTINUATION 1,000 ML IV ONE (07:23)
--- NOTE | 2017-04-05 07:27 | P.PCN ---
Date of Procedure: 04/05/17 Procedure(s) Performed: PREOPERATIVE DIAGNOSIS: 1- Lumbar Degenerative Disc Diseases 2-Lumbar radiculopathy. 3-sacroiliitis. POSTOPERATIVE DIAGNOSIS: same as preop diagnosis . PROCEDURE 1. Lumbar epidural steroid injection under fluoroscopic guidance at the L2-3 level. 2. Lumbar epidurogram. ANESTHESIA: Local with 1% lidocaine 3 ml and , moderate sedation with intravenous Versed 2 mg ,and fentanyle 100 Mcg EBL: Minimal PROCEDURE INDICATION: The patient with low back pain and radiculitis symptoms unresponsive to conservative treatment. Fluoroscopy was used to optimize visualization of the needle placement and to maximize safety. PROCEDURE DESCRIPTION / TECHNIQUE: The patient was seen and identified in the preoperative area. Risks, benefits , complications including but not limited to infections ,bleeding ,allergic reaction to the medications ,nerve damage and not complete pain releife , and alternatives were discussed with the patient. The patient agreed to proceed with the procedure and signed the consent. IV was started, and vital signs were stable. Patient was taken to the OR and time out was completed. The patient was placed in the prone position on procedure table and a pillow was placed under the abdomen to reduce lumbar lordosis. The lumbosacral area was prepped and draped in the usual sterile fashion.ere closely monitored during the procedure. Conscious sedation was used during the procedure to decrease patients anxiety. Vital signs was monitered during the entire procedure. Using anterior-posterior fluoroscopy, the L2-3 interlaminar space was identified and the skin over this site was marked and then infiltrated with 1% lidocaine subcutaneously. Subsequently, a 20-gauge Tuohy epidural needle was inserted and advanced toward the epidural space using the ``Loss of resistance technique and guided by AP and lateral fluoroscopy. The correct needle position in the epidural space was verified with the injection of 2 mL of the water soluble contrast dye Omnipaque 180 contrast and observing an excellent epidurogram with the epidural spread of the dye, after negative aspiration for blood and CSF and in the absence of paresthesias. Again after negative aspiration, a 6 ml mixture containing 20 mg of Dexamethasone and 2 ml of preservative free Normal Saline, and 2 ml of preservative free lidocaine 1% solution was injected and a washout of epidurogram was seen. Needle was withdrawn intact, skin was cleansed, and bandages were applied. COMPLICATIONS: None DISPOSITION / PLANS: The patient was placed in a supine position and transferred to the recovery area in a stable condition for observation. There was no evidence of lower extremity motor or sensory deficit after the procedure. Patient was discharged from the recovery room after meeting discharge criteria. Home discharge instructions were given to the patient by the staff. The patient was reexamined prior to discharge. The patient will schedule a follow up in the clinic in 2-4 weeks.
[2017-04-05 07:45] VITALS: BP 130/79; PULSE 72
--- NOTE | 2017-04-05 08:45 | FL ---
Fluoroscopy History: LUMBAR EPIDURAL STEROID INJ 8 sec fl, 1 film scanned
== END 2017-04-05 07:54 | disposition home or self-care (01) ==
LOC: ORPAIN 06:15
PROVIDERS: ATTEND Specialist
DX: M51.16 Intervertebral disc disorders with radiculopathy, lumbar region (principal); M46.1 Sacroiliitis, not elsewhere classified
CPT/HCPCS: 81025; 62323; J2250; J1100; Q9965; J3010

== ENCOUNTER → 2017-04-18 | Outpatient (CLI) | payer BC ==
[2017-04-18 12:34] VITALS: BP 117/82; PULSE 82; RESP 16
--- NOTE | 2017-04-18 13:15 | P.PN ---
Progress Note - Text Progress Note Date: 04/18/17 Patient returns for followup for chronic neck and back pain with radiation to arms and L > R hip. Patient recently underwent LESI x 2, 1-2 weeks' interval apiece. Patient continues on [place]br[place]/Neurontin/Motrin medications for pain with good relief, although Collbran was decreased at last visit and Neurontin was increased. Patient denies adverse drug effects from medications. Today, pt denies new-onset weakness, bowel/bladder incontinence, or any other signs or symptoms of cauda equina syndrome. There are no signs of acute intoxication, and no indications of medication diversion or overuse. In addition to above, 13-point review of systems is also negative for chest pain , shortness of breath, changes in vision, changes in hearing, new onset weakness , abdominal pain, diarrhea, extreme fatigue, malaise, fever, skin changes, homicidal or suicidal ideation, or bowel or bladder incontinence. Vital Signs: Reviewed in EMR Gen: WDWN, AAOx3, NAD HEENT: NCAT, EOMI, hearing grossly normal Pulm: resp unlabored Abd: soft, NT, ND Neck: supple, trachea midline ROM in flexion lumbar spine: full ROM in extension lumbar spine: reduced Lumbar paravertebral tenderness: + Facet loading: + bilateral SI joint tenderness: +L side >> R side Cesar's test: + L side >> R side Straight leg raise: + R side Neuro: CN II-XII grossly intact, muscle strength lower extremities PRESERVED Imaging: MRI lumbar spine dated 12/27/16 demonstrates a tiny central disc protrusion at the L2-L3 level with mild anterior thecal sac compression. At the L1-L2 level there is minimal central disc bulge with anterior thecal sac contact. There is no central canal or foraminal stenosis noted at any level. Assessment: 1. cervical radiculitis 2. lumbar radiculitis 3. chronic pain syndrome Plan: 1. Explanation: Opioid and psychological risk scores were reviewed. Diagnoses , prognoses, and multiple treatment options including but not limited to physical therapy, interventional therapies, adjuvant medical therapies, narcotic medication therapies, and surgery were discussed with the patient and all questions were answered to the patient's satisfaction. 2. Opioid agreement: Patient has previously signed narcotic agreement, and was orally counseled to not overuse, abuse, divert, or cell medications, and to take them as prescribed by only 1 healthcare provider. The patient was also counseled to store opioid medications in a safe and preferably locked location. Patient was also counseled against driving or operating heavy equipment while using narcotic medications and also to not use alcohol or any illicit or recreational drugs. The patient verbalized understanding that lack of compliance with any of the above and likely result in failure to renew narcotic prescriptions, possible discharge from the clinic, and possible legal ramifications thereafter if indicated. 3. Counseling: The patient was counseled extensively on SMOKING CESSATION, BODY MASS INDEX, EXERCISE. Specifically, the patient was instructed regarding the importance of smoking cessation, weight control, and exercise in the context of both chronic pain and overall health. 4. Procedures: LESI L2-L3 series, 4-6 weeks 5. Consultations: None 6. Investigations: None 7. Medications: Coll[place] 7.5/325 #90 with one refill, Motrin 800 mg #90 with one refill, Neurontin increased to 400 mg #90 with two wrefills 8. Disposition: f/u for procedure as scheduled PQRS measures: 1-Patient's medications are documented in the chart. 2-Tobacco use is negative 3-Patient has not had a pneumococcal vaccine. 4-Advanced care planning discussed, patient unable to give. 5-Opioid contract signed with the patient. 6-Pain positive, follow-up visit or procedure scheduled 7-Patient's blood pressure measured and documented, and patient will follow up with the primary care due to hypertension. 8-Patient's weight was measured, and body mass index ABOVE the normal limits, and counseling was done. Patient instructed to follow up with PCP. 9-Patient WAS NOT identified as an unhealthy alcohol user. Patient is typically able to walk 100 feet without pain, able to lift 5 pounds but with pain, unable to bend without pain, and unable to sit for longer than 30 minutes without pain.
== END | disposition home or self-care (01) ==
LOC: PNWHC3 11:43
PROVIDERS: ATTEND Anesthesiology
DX: G89.4 Chronic pain syndrome (principal); M54.12 Radiculopathy, cervical region; M54.16 Radiculopathy, lumbar region; Z79.891 Long term (current) use of opiate analgesic; Z79.899 Other long term (current) drug therapy; Z79.1 Long term (current) use of non-steroidal anti-inflammatories (NSAID)
CPT/HCPCS: 99211

== ENCOUNTER 2017-05-21 08:45 | Day surgery (SDC) | payer BC ==
[2017-05-16 15:11] VITALS: BMI 30.9
[2017-05-21 10:04] VITALS: RESP 16; TEMP 97.9
[2017-05-21] MEDS ORDERED: LIDOCAINE 1% 20 ML VIAL (10MG/ML) FOR IV START INTRADERMA ONE (10:11)
--- NOTE | 2017-05-21 11:28 | P.PCN ---
Date of Procedure: 05/21/17 Procedure(s) Performed: PREOPERATIVE DIAGNOSIS: 1- Lumbar Degenerative Disc Diseases 2-Lumbar radiculopathy. 3-sacroiliitis. POSTOPERATIVE DIAGNOSIS: Same as preop diagnosis PROCEDURE 1. Lumbar epidural steroid injection under fluoroscopic guidance at the L2-3 level. 2. Lumbar epidurogram. ANESTHESIA: Local with 1% lidocaine 3 ml and , moderate sedation with intravenous Versed 2 mg ,and fentanyle 100 Mcg EBL: Minimal PROCEDURE INDICATION: The patient with low back pain and radiculitis symptoms unresponsive to conservative treatment. Fluoroscopy was used to optimize visualization of the needle placement and to maximize safety. PROCEDURE DESCRIPTION / TECHNIQUE: The patient was seen and identified in the preoperative area. Risks, benefits , complications including but not limited to infections ,bleeding ,allergic reaction to the medications ,nerve damage and not complete pain releife , and alternatives were discussed with the patient. The patient agreed to proceed with the procedure and signed the consent. IV was started, and vital signs were stable. Patient was taken to the OR and time out was completed. The patient was placed in the prone position on procedure table and a pillow was placed under the abdomen to reduce lumbar lordosis. The lumbosacral area was prepped and draped in the usual sterile fashion.ere closely monitored during the procedure. Conscious sedation was used during the procedure to decrease patients anxiety. Vital signs was monitered during the entire procedure. Using anterior-posterior fluoroscopy, the L2-3 interlaminar space was identified and the skin over this site was marked and then infiltrated with 1% lidocaine subcutaneously. Subsequently, a 20-gauge Tuohy epidural needle was inserted and advanced toward the epidural space using the ``Loss of resistance technique and guided by AP and lateral fluoroscopy. The correct needle position in the epidural space was verified with the injection of 2 mL of the water soluble contrast dye Omnipaque 180 contrast and observing an excellent epidurogram with the epidural spread of the dye, after negative aspiration for blood and CSF and in the absence of paresthesias. Again after negative aspiration, a 6 ml mixture containing 20 mg of Dexamethasone and 2 ml of preservative free Normal Saline, and 2 ml of preservative free lidocaine 1% solution was injected and a washout of epidurogram was seen. Needle was withdrawn intact, skin was cleansed, and bandages were applied. COMPLICATIONS: None DISPOSITION / PLANS: The patient was placed in a supine position and transferred to the recovery area in a stable condition for observation. There was no evidence of lower extremity motor or sensory deficit after the procedure. Patient was discharged from the recovery room after meeting discharge criteria. Home discharge instructions were given to the patient by the staff. The patient was reexamined prior to discharge. The patient will schedule a follow up in the clinic in 2-4 weeks.
[2017-05-21] MEDS ORDERED: IV FLUID CONTINUATION 1,000 ML IV ONE (11:36)
--- NOTE | 2017-05-21 11:47 | FL ---
Fluoroscopy INDICATION: Pain FINDINGS: Fluoroscopy time: 3 seconds. Images obtained: 1. IMPRESSIONS: 1. Documentation of fluoroscopy.
[2017-05-21 12:03] VITALS: BP 117/80; PULSE 69
--- NOTE | 2017-05-21 12:57 | P.PN ---
Progress Note - Text Progress Note Date: 05/21/17 e prescription for [place] 7.5/325 every 8 hours ,dispense 90 was given
== END 2017-05-21 12:16 | disposition home or self-care (01) ==
LOC: ORPAIN 08:45
PROVIDERS: ATTEND Specialist
DX: M51.16 Intervertebral disc disorders with radiculopathy, lumbar region (principal); M46.1 Sacroiliitis, not elsewhere classified
CPT/HCPCS: 81025; 62323; J2250; J1100; Q9965; J3010

== ENCOUNTER → 2017-06-18 | Outpatient (CLI) | payer BC ==
[2017-06-18 14:42] VITALS: BP 124/86; PULSE 74; RESP 16
--- NOTE | 2017-06-18 15:09 | P.PN ---
Progress Note - Text Progress Note Date: 06/18/17 This is a 52-year-old female with history of neck and lower back pain status post lumbar epidural steroid injection that improved her lower back. The patient today has more pain in her neck with radiation to the shoulders. The patient states that she has gained weight because of the steroids that she's been getting from the injections. Her pain at this point is controlled with a combination of oral [place] and Neurontin with occasional Motrin 800 mg. She also complains of mild pain on the anterior aspect of her right shoulder today. Today, pt denies new-onset weakness, bowel/bladder incontinence, or any other signs or symptoms of cauda equina syndrome. There are no signs of acute intoxication, and no indications of medication diversion or overuse. In addition to above, 13-point review of systems is also negative for chest pain , shortness of breath, changes in vision, changes in hearing, new onset weakness , abdominal pain, diarrhea, extreme fatigue, malaise, fever, skin changes, homicidal or suicidal ideation, or bowel or bladder incontinence. Vital Signs: Reviewed in EMR Gen: WDWN, AAOx3, NAD HEENT: NCAT, EOMI, hearing grossly normal Pulm: resp unlabored Neck: supple, trachea midline She has tenderness in the anterior aspect of her right shoulder joint. Neuro: CN II-XII grossly intact, muscle strength lower extremities PRESERVED Imaging: MRI lumbar spine dated 12/27/16 demonstrates a tiny central disc protrusion at the L2-L3 level with mild anterior thecal sac compression. At the L1-L2 level there is minimal central disc bulge with anterior thecal sac contact. There is no central canal or foraminal stenosis noted at any level. Assessment: 1. cervical spondylosis without myelopathy 2. Lumbar spondylosis without myelopathy 3. chronic pain syndrome Plan: 1. Explanation: Opioid and psychological risk scores were reviewed. Diagnoses , prognoses, and multiple treatment options including but not limited to physical therapy, interventional therapies, adjuvant medical therapies, narcotic medication therapies, and surgery were discussed with the patient and all questions were answered to the patient's satisfaction. 2. Opioid agreement: Patient has previously signed narcotic agreement, and was orally counseled to not overuse, abuse, divert, or cell medications, and to take them as prescribed by only 1 healthcare provider. The patient was also counseled to store opioid medications in a safe and preferably locked location. Patient was also counseled against driving or operating heavy equipment while using narcotic medications and also to not use alcohol or any illicit or recreational drugs. The patient verbalized understanding that lack of compliance with any of the above and likely result in failure to renew narcotic prescriptions, possible discharge from the clinic, and possible legal ramifications thereafter if indicated. 3. Counseling: The patient was counseled extensively on SMOKING CESSATION, BODY MASS INDEX, EXERCISE. Specifically, the patient was instructed regarding the importance of smoking cessation, weight control, and exercise in the context of both chronic pain and overall health. 4. Procedures: None at this point 5. Consultations: None 6. Investigations: None 7. Medications: [place] 7.5/325 #90 with one refill, Motrin 800 mg #60 with one refill, Neurontin increased to 400 mg #90 with one refills 8. Disposition: f/u in the pain clinic 8 weeks from now PQRS measures: 1-Patient's medications are documented in the chart. 2-Tobacco use is negative 3-Patient has not had a pneumococcal vaccine. 4-Advanced care planning discussed, patient unable to give. 5-Opioid contract signed with the patient. 6-Pain positive, follow-up visit or procedure scheduled 7-Patient's blood pressure measured and documented, and patient will follow up with the primary care due to hypertension. 8-Patient's weight was measured, and body mass index ABOVE the normal limits, and counseling was done. Patient instructed to follow up with PCP. 9-Patient WAS NOT identified as an unhealthy alcohol user.
== END | disposition home or self-care (01) ==
LOC: PNWHC3 13:58
PROVIDERS: ATTEND Anesthesiology
DX: G89.4 Chronic pain syndrome (principal); M47.816 Spondylosis without myelopathy or radiculopathy, lumbar region; M47.812 Spondylosis without myelopathy or radiculopathy, cervical region; Z79.891 Long term (current) use of opiate analgesic; Z79.899 Other long term (current) drug therapy; Z79.1 Long term (current) use of non-steroidal anti-inflammatories (NSAID)
CPT/HCPCS: 99211

== ENCOUNTER → 2017-07-20 | Outpatient (CLI) | payer BC ==
--- NOTE | 2017-07-20 13:59 | MR ---
EXAMINATION TYPE: MR iac wo/w con DATE OF EXAM: 07/20/2017 1:49 PM COMPARISON: NONE HISTORY: Hearing loss TECHNIQUE: Multiplanar and multispin-echo imaging of the brain was performed both before and after the administr ation of contrast. High-resolution images are obtained of the internal auditory canals performed uti lizing 7.5 mL intravenous Gadavist contrast. The ventricles, basal cisterns and sulci overlying the cerebral convexities are within normal limits. There is no evidence for midline shift or mass effect. Acute intracranial hemorrhage or extra-axial collection is not evident. There are no abnormal areas of increased or decreased signal intensity within the brain parenchyma. High-resolution imaging of the internal auditory canals fails demonstrate evidence for an enhancing a coustic schwannoma or cerebellopontine cistern angle mass. Following contrast administration, there is no evidence for pathologic enhancement or enhancing mass. The paranasal sinuses and mastoid air cells are well-aerated. IMPRESSION: 1. No evidence of acoustic schwannoma or cerebellopontine angle mass.
== END | disposition home or self-care (01) ==
LOC: RADMRIMAIN 12:37
PROVIDERS: ATTEND Otolaryngology
DX: H93.12 Tinnitus, left ear (principal); H91.92 Unspecified hearing loss, left ear; H93.3X2 Disorders of left acoustic nerve
CPT/HCPCS: 70553; A9581

== ENCOUNTER → 2017-08-13 | Outpatient (CLI) | payer BC ==
[2017-08-13 13:53] VITALS: BP 115/72; PULSE 78; RESP 16
--- NOTE | 2017-08-13 14:25 | P.PAINPG ---
Subjective Progress Note Date: 08/13/17 Principal diagnosis: 6 cervical radiculopathy, cervical spondylosis A long-standing history of neck pain and pain down her right arm. She is undergone previous injection therapy which has been helpful for her. She continues take opiates would provide her some benefit as well as gabapentin. She also utilizes an anti-inflammatory medicine at times. Objective - Vital Signs Vital signs: Vital Signs Temp Pulse 78 08/13/17 13:42 Resp 16 08/13/17 13:42 BP 115/72 08/13/17 13:42 Pulse Ox Intake & Output 08/12/17 08/13/17 08/13/17 18:59 06:59 18:59 Weight 81.647 kg - Exam Gen: WDWN, AAOx3, NAD HEENT: NCAT, EOMI, hearing grossly normal Pulm: resp unlabored Abd: soft, NT, ND Neck: supple, trachea midline ROM in flexion cervical spine: Decreased ROM in extension cervical spine: Decreased Cervical paravertebral tenderness: Multiple palpable trigger points throughout the trapezius muscles bilaterally Cervical Facet tenderness: Positive on both sides Spurling's: Positive for right cervical radicular pain Neuro: muscle strength normal in the upper extremities bilaterally Reflexes are normal in the upper extremities bilaterally. Assessment and Plan (1) Cervical radiculopathy Narrative/Plan: 1. Medications: I discussed with the patient her current medications. I reviewed her mass report. It reveals no unusual activity. She understands the risks and benefits of opiate therapy. She'll cement a urine drug screen today. There is a side opiate consent in her chart. 2. Patient has undergone previous cervical steroid injections which she says have helped with her right cervical radicular pain. She is requesting to have another one of those injections today. We will schedule this. She is concerned about weight gain from these procedures. I encouraged her minimizing out of procedure she has to hopefully blunts this effect. 3. I've encouraged patient to become involved in daily stretching and exercises. She is currently not doing this. I also encouraged her to examine the ergonomics of her situation at home with her home computer. I believe that some of these positional challenges are adding to her neck and arm pain. Current Visit: Yes Status: Acute Code(s): M54.12 - RADICULOPATHY, CERVICAL REGION SNOMED Code(s): 83694427 (2) Myofascial pain syndrome Current Visit: Yes Status: Acute Code(s): M79.1 - MYALGIA SNOMED Code(s): 114074366 (3) Myofascial pain syndrome, cervical Current Visit: Yes Status: Acute Code(s): M79.1 - MYALGIA SNOMED Code(s): 441876658 PQRS Measure Charge Sheet Measure #130: Documentation of Current Meds in Medical Chart: Patient's medications documented in chart Measure #226: Tobacco Use: Screen & Cessation Intervention: Pt not a tobacco user Measure #111: Pneumonia Vaccination: Pneumococcal vaccine administered or previously received Measure #47: Advance Care Plan: Advance care planning discussed & documented, pt chose/unable to give Measure #412: Opioid Treatment Agreement: Documented signed opioid trtmnt agreemnt min once during opioid trtmnt Measure #408: Opioid Therapy Follow-up Evaluation: Patient had f/u eval minimum every 3 months during opioid therapy Measure #317: Preventitive Care & Scrn High Bld Press & F/U: Normal blood pressure, f/u not required Measure #128: Body Mass Index (BMI) Screening & Follow-up: BMI documented ABOVE normal parameters - f/u documented Measure #131: Pain Assessment & Follow-up: Pain positive & plan documented Measure #431: Unhealthy Alcohol Use Preventative Care & Scrn: Patient not identified as an unhealthy alcohol user PQRS Narrative: Smoking Status Never smoker Do You Want the Pneumonia No Vaccine AT THIS TIME? Narcotic Agreement Date Signed 07/12/16 Blood Pressure 115/72 Pain Intensity [Right Lower 2 Back] Pain Intensity [Right 6 Posterior Neck] Scale Used Numeric (1 - 10) Hx Alcohol Use (MH) No Home Medications: Ambulatory Orders buPROPion HCL [Wellbutrin XL] 300 mg PO QAM 03/31/16 lamoTRIgine [LaMICtal] 400 mg PO QAM 03/31/16 traZODone HCL [Desyrel] 50 mg PO HS 05/11/16 Ibuprofen [Motrin] 800 mg PO Q8HR PRN #90 tab 04/18/17 Gabapentin [Neurontin] 400 mg PO TID #90 cap 08/13/17 HYDROcodone/APAP 7.5-325MG [[place] 7.5-325] 1 tab PO Q8HR PRN #90 tab 08/13/17 Controlled Substance Measures - Controlled Substance Measures Is patient prescribed a controlled substance at discharge?: Yes If prescribed controlled substance>3 days was MAPS reviewed?: Yes When asked, does pt state using other controlled substances?: Yes
== END | disposition home or self-care (01) ==
LOC: PNWHC3 13:10
PROVIDERS: ATTEND Pain Medicine Pain Medicine
DX: M47.22 Other spondylosis with radiculopathy, cervical region (principal); M79.1 Myalgia; Z79.891 Long term (current) use of opiate analgesic; Z79.1 Long term (current) use of non-steroidal anti-inflammatories (NSAID); Z79.899 Other long term (current) drug therapy
CPT/HCPCS: 80307; 80356; 99211

== ENCOUNTER → 2017-09-11 | Outpatient (CLI) | payer BC ==
[2017-09-11 13:16] VITALS: BP 132/72; PULSE 77; RESP 18
--- NOTE | 2017-09-11 13:29 | P.PN ---
Progress Note - Text Progress Note Date: 09/11/17 Patient returns for followup for chronic neck and back pain with radiation to arms and L > R hip. Patient was supposed to have YAYA but could not find a ride. Patient continues on [place]/Neurontin/Motrin medications for pain with good relief. Patient denies adverse drug effects from medications. Today, pt denies new-onset weakness, bowel/bladder incontinence, or any other signs or symptoms of cauda equina syndrome. There are no signs of acute intoxication, and no indications of medication diversion or overuse. In addition to above, 13-point review of systems is also negative for chest pain , shortness of breath, changes in vision, changes in hearing, new onset weakness , abdominal pain, diarrhea, extreme fatigue, malaise, fever, skin changes, homicidal or suicidal ideation, or bowel or bladder incontinence. Vital Signs: Reviewed in EMR Gen: WDWN, AAOx3, NAD HEENT: NCAT, EOMI, hearing grossly normal Pulm: resp unlabored Abd: soft, NT, ND Neck: supple, trachea midline ROM in flexion C-spine: full ROM extension C-spine: reduced +Spurling's RUE Imaging: MRI lumbar spine dated 12/27/16 demonstrates a tiny central disc protrusion at the L2-L3 level with mild anterior thecal sac compression. At the L1-L2 level there is minimal central disc bulge with anterior thecal sac contact. There is no central canal or foraminal stenosis noted at any level. Assessment: 1. cervical radiculitis 2. lumbar radiculitis 3. chronic pain syndrome Plan: 1. Explanation: Opioid and psychological risk scores were reviewed. Diagnoses , prognoses, and multiple treatment options including but not limited to physical therapy, interventional therapies, adjuvant medical therapies, narcotic medication therapies, and surgery were discussed with the patient and all questions were answered to the patient's satisfaction. 2. Opioid agreement: Patient has previously signed narcotic agreement, and was orally counseled to not overuse, abuse, divert, or cell medications, and to take them as prescribed by only 1 healthcare provider. The patient was also counseled to store opioid medications in a safe and preferably locked location. Patient was also counseled against driving or operating heavy equipment while using narcotic medications and also to not use alcohol or any illicit or recreational drugs. The patient verbalized understanding that lack of compliance with any of the above and likely result in failure to renew narcotic prescriptions, possible discharge from the clinic, and possible legal ramifications thereafter if indicated. 3. Counseling: The patient was counseled extensively on SMOKING CESSATION, BODY MASS INDEX, EXERCISE. Specifically, the patient was instructed regarding the importance of smoking cessation, weight control, and exercise in the context of both chronic pain and overall health. 4. Procedures: YAYA series C7-T1 5. Consultations: None 6. Investigations: UDS today; MAPS queried and appropriate 7. Medications: [place] 7.5/325 #90 with no refill, Motrin 800 mg #90 with one refill 8. MME/day: 22.5 (unchanged) 9. Disposition: f/u for procedure as scheduled PQRS measures: 1-Patient's medications are documented in the chart. 2-Tobacco use is negative 3-Patient has not had a pneumococcal vaccine. 4-Advanced care planning discussed, patient unable to give. 5-Opioid contract signed with the patient. 6-Pain positive, follow-up visit or procedure scheduled 7-Patient's blood pressure measured and documented, and patient will follow up with the primary care due to hypertension. 8-Patient's weight was measured, and body mass index ABOVE the normal limits, and counseling was done. Patient instructed to follow up with PCP. 9-Patient WAS NOT identified as an unhealthy alcohol user.
== END | disposition home or self-care (01) ==
LOC: PNWHC3 12:59
PROVIDERS: ATTEND Anesthesiology
DX: G89.4 Chronic pain syndrome (principal); M54.2 Cervicalgia; M54.9 Dorsalgia, unspecified; M54.16 Radiculopathy, lumbar region; M54.12 Radiculopathy, cervical region; Z79.891 Long term (current) use of opiate analgesic; Z79.1 Long term (current) use of non-steroidal anti-inflammatories (NSAID); Z79.899 Other long term (current) drug therapy
CPT/HCPCS: 80307; 80356; 99211

== ENCOUNTER 2017-09-27 07:33 | Day surgery (SDC) | payer BC ==
[2017-09-25 09:27] VITALS: BMI 30.9
[2017-09-27 08:11] VITALS: TEMP 97.7
[2017-09-27] MEDS ORDERED: LIDOCAINE 1% 20 ML VIAL (10MG/ML) FOR IV START INTRADERMA ONE (08:24)
--- NOTE | 2017-09-27 08:58 | P.PCN ---
Date of Procedure: 09/27/17 Surgeon: Fito Nunez Description of Procedure: PREOPERATIVE DIAGNOSIS: Cervical radiculopathy Cervical degenerative disc disease POSTOPERATIVE DIAGNOSIS: Cervical radiculopathy Cervical degenerative disc disease PROCEDURE Cervical neural steroid injection under fluoroscopic guidance at the C7-T1 interspace. ANESTHESIA: Local with 1% lidocaine 3 ml and IV sedation with Versed 2 mg EBL: Minimal Indication for procedure: This very pleasant 52-year-old woman with a history of neck pain as well as right arm pain and left sided pain. She reports good benefit from her first cervical epidural steroid injection. She presents today for repeat of this procedure it is been about 6 weeks since her last injection. PROCEDURE DESCRIPTION / TECHNIQUE: The patient was seen and identified in the preoperative area. Risks, benefits , complications including but not limited to infections ,bleeding ,allergic reaction to the medications ,nerve damage and incomplete pain relief, and alternatives were discussed with the patient. The patient agreed to proceed with the procedure and signed the consent. IV was started, and vital signs were stable. Patient was taken to the OR and time out was completed. The patient was placed in the prone position on procedure table and a pillow was placed under the chest area.. The cervical area was prepped and draped in the usual sterile fashion. Conscious sedation was used during the procedure to decrease patient s anxiety. Vital signs was monitered during the entire procedure. Using anterior-posterior fluoroscopy, the C7-T1 interlaminar space was identified and the skin over this site was marked and then infiltrated with 1% lidocaine subcutaneously. Subsequently, a 20-gauge Tuohy epidural needle was inserted and advanced toward the epidural space using the loss of resistance technique and guided by AP and lateral fluoroscopy. The correct needle position in the epidural space was verified with the injection of contrast and observing an excellent epidurogram with the epidural spread of the dye, after negative aspiration for blood and CSF and in the absence of paresthesias. Again after negative aspiration, a 4 ml mixture containing 80 mg of Depo-Medrol was injected. Needle was withdrawn intact, skin was cleansed, and bandages were applied. COMPLICATIONS: None DISPOSITION / PLANS: The patient was placed in a supine position and transferred to the recovery area in a stable condition for observation. There was no evidence of lower extremity motor or sensory deficit after the procedure. Patient was discharged from the recovery room after meeting discharge criteria. Home discharge instructions were given to the patient by the staff. The patient was reexamined prior to discharge. The patient will schedule a follow up in the clinic in 2-4 weeks.
[2017-09-27] MEDS ORDERED: IV FLUID CONTINUATION 1,000 ML IV ONE (09:05)
[2017-09-27 09:10] VITALS: RESP 16
--- NOTE | 2017-09-27 09:34 | FL ---
EXAMINATION TYPE: FL guided pain mgmt statistic DATE OF EXAM: 09/27/2017 COMPARISON: NONE HISTORY: Neck pain TECHNIQUE: Fluoroscopy. FINDINGS/IMPRESSION: Fluoroscopic guidance was provided during procedure performed by Dr. Nunez. A total of 1 seconds of fluoroscopic time was utilized during the procedure and 1 spot images was a cquired demonstrating localization of the cervical spine.
[2017-09-27 10:15] VITALS: BP 128/80; PULSE 73
== END 2017-09-27 10:24 | disposition home or self-care (01) ==
LOC: ORPAIN 07:33
PROVIDERS: ATTEND Pain Medicine Pain Medicine
DX: M50.10 Cervical disc disorder with radiculopathy, unspecified cervical region (principal)
CPT/HCPCS: 62321; J2250; J1030

== ENCOUNTER → 2017-10-08 | Outpatient (CLI) | payer BC ==
[2017-10-08 12:29] VITALS: BP 125/76; PULSE 78; RESP 16
--- NOTE | 2017-10-08 13:12 | P.PN ---
Progress Note - Text Progress Note Date: 10/08/17 52-year-old female with history of neck and lower back pain. The patient received cervical epidural steroid injection a few weeks ago and it has given her good relief of her pain. Today, pt denies new-onset weakness, bowel/ bladder incontinence, or any other signs or symptoms of cauda equina syndrome. There are no signs of acute intoxication, and no indications of medication diversion or overuse. In addition to above, 13-point review of systems is also negative for chest pain , shortness of breath, changes in vision, changes in hearing, new onset weakness , abdominal pain, diarrhea, extreme fatigue, malaise, fever, skin changes, homicidal or suicidal ideation, or bowel or bladder incontinence. Vital Signs: Reviewed in EMR Gen: AAOx3, NAD HEENT: hearing grossly normal Pulm: resp unlabored Neck: supple, trachea midline ROM in flexion C-spine: full ROM extension C-spine: reduced She has normal muscle strength in the upper extremities bilaterally Imaging: MRI lumbar spine dated 12/27/16 demonstrates a tiny central disc protrusion at the L2-L3 level with mild anterior thecal sac compression. At the L1-L2 level there is minimal central disc bulge with anterior thecal sac contact. There is no central canal or foraminal stenosis noted at any level. Assessment: 1. cervical radiculitis 2. lumbar radiculitis 3. chronic pain syndrome Plan: 1. Explanation: Opioid and psychological risk scores were reviewed. Diagnoses , prognoses, and multiple treatment options including but not limited to physical therapy, interventional therapies, adjuvant medical therapies, narcotic medication therapies, and surgery were discussed with the patient and all questions were answered to the patient's satisfaction. 2. Opioid agreement: Patient has previously signed narcotic agreement, and was orally counseled to not overuse, abuse, divert, or cell medications, and to take them as prescribed by only 1 healthcare provider. The patient was also counseled to store opioid medications in a safe and preferably locked location. Patient was also counseled against driving or operating heavy equipment while using narcotic medications and also to not use alcohol or any illicit or recreational drugs. The patient verbalized understanding that lack of compliance with any of the above and likely result in failure to renew narcotic prescriptions, possible discharge from the clinic, and possible legal ramifications thereafter if indicated. 3. Counseling: The patient was counseled extensively on SMOKING CESSATION, BODY MASS INDEX, EXERCISE. Specifically, the patient was instructed regarding the importance of smoking cessation, weight control, and exercise in the context of both chronic pain and overall health. 4. Procedures: The patient is scheduled to have the second YAYA in a few days 5. Consultations: None 6. Investigations: MAPS queried and appropriate 7. Medications: [place] 7.5/325 #90 , Motrin 800 mg, Neurontin 3 times a day 8. MME/day: 22.5 (unchanged) 9. Disposition: f/u for procedure as scheduled PQRS measures: 1-Patient's medications are documented in the chart. 2-Tobacco use is negative 3-Patient has not had a pneumococcal vaccine. 4-Advanced care planning discussed, patient unable to give. 5-Opioid contract signed with the patient. 6-Pain positive, follow-up visit or procedure scheduled 7-Patient's blood pressure measured and documented, and patient will follow up with the primary care due to hypertension. 8-Patient's weight was measured, and body mass index ABOVE the normal limits, and counseling was done. Patient instructed to follow up with PCP. 9-Patient WAS NOT identified as an unhealthy alcohol user.
== END | disposition home or self-care (01) ==
LOC: PNWHC3 12:14
PROVIDERS: ATTEND Anesthesiology
DX: G89.4 Chronic pain syndrome (principal); M54.16 Radiculopathy, lumbar region; M54.12 Radiculopathy, cervical region; Z79.891 Long term (current) use of opiate analgesic; Z79.1 Long term (current) use of non-steroidal anti-inflammatories (NSAID); Z79.899 Other long term (current) drug therapy
CPT/HCPCS: 99211

== ENCOUNTER 2017-10-11 09:22 | Day surgery (SDC) | payer BC ==
[2017-10-09 10:39] VITALS: BMI 30.9
[2017-10-11 10:43] VITALS: TEMP 97.9
[2017-10-11] MEDS ORDERED: LACTATED RINGERS 1,000 ML IV ONE (10:44)
[2017-10-11] MEDS ORDERED: LIDOCAINE 1% 20 ML VIAL (10MG/ML) FOR IV START INTRADERMA ONE (10:48)
--- NOTE | 2017-10-11 11:42 | P.PCN ---
Date of Procedure: 10/11/17 Procedure(s) Performed: . PROCEDURE 1. Cervical epidural steroid injection under fluoroscopic guidance, C7-T1 2. Cervical epidurogram. PREOPERATIVE DIAGNOSIS: 1- Cervical radiculopathy., 2-lumbar radiculopathy. POSTOPERATIVE DIAGNOSIS: : Same as preoperative diagnoses. ANESTHESIA: Local anesthesia with 1% lidocaine and moderate sedation with Versed 2 mg . EBL 0 PROCEDURE INDICATION: The patient with neck pain and radiculitis unresponsive to conservative treatment consents for procedure. PROCEDURE DESCRIPTION / TECHNIQUE: The patient was seen and identified in the preoperative area. Risks, benefits, complications, including but not limited to infections ,bleeding , allergic reactions to the medications ,and not complete pain releife, and alternatives were discussed with the patient, the patient agreed to proceed with the procedure and signed the consent. Patient was taken to the OR and time out was completed. The patient was placed in the prone position on the procedure table. A pillow was placed under the patients chest to increase the cervical interlaminar space. The cervical area was prepped and draped in the usual sterile fashion. Vital signs were closely monitored during the procedure. Conscious sedation was used during the procedure to decrease patients anxiety. Using anterior-posterior fluoroscopy, the C7-T1 interlaminar space was identified and the skin over this site was marked and then infiltrated with 1% lidocaine subcutaneously. Subsequently, a 20-gauge 3-1/2-inch Tuohy epidural needle was inserted and advanced toward the epidural space by means of the `` hanging-drop technique and guided by AP and lateral fluoroscopy. The correct needle position in the epidural space was verified with the injection of 2 mL of the water soluble contrast dye Isovue-200 and observing an excellent epidurogram with the epidural spread of the dye, after negative aspiration for blood and CSF and in the absence of paresthesias. Again after negative aspiration, mixture containing 20 mg Dexamethasone and 2 ml of preservative- free normal saline injected and a washout of epidurogram was seen. Needle was withdrawn intact, skin was cleansed, and bandages were applied. Complications= none. Disposition= patient was placed in supine position and transferred to the recovery room area in stable condition and there was no evidence of upper or lower extremity motor or sensory deficit after the procedure patient was discharged from recovery room after discharge criteria met and home discharge instructions was given by the staff and patient will follow with the pain clinic in 2-4 weeks
[2017-10-11] MEDS ORDERED: IV FLUID CONTINUATION 1,000 ML IV ONE (11:50)
[2017-10-11 11:53] VITALS: BP 102/72
[2017-10-11 12:00] VITALS: PULSE 66; RESP 16
--- NOTE | 2017-10-11 12:59 | FL ---
Fluoroscopy HISTORY: Pain 7 seconds fluoroscopy time supplied to the referring clinician. 2 intraoperative C-arm images docume nt the procedure. See dictated report from anesthesia.
== END 2017-10-11 12:43 | disposition home or self-care (01) ==
LOC: ORPAIN 09:22
PROVIDERS: ATTEND Specialist
DX: M54.12 Radiculopathy, cervical region (principal); M54.16 Radiculopathy, lumbar region; Z78.0 Asymptomatic menopausal state
CPT/HCPCS: 62321; J1100; Q9966

== ENCOUNTER → 2017-12-03 | Outpatient (CLI) | payer BC ==
[2017-12-03 13:59] VITALS: BP 116/82; PULSE 81; RESP 18
--- NOTE | 2017-12-03 14:19 | P.PN ---
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 The patient received cervical epidural steroid injection a few weeks ago and it has given her good relief of her pain. She has pain on both sides of her hips. Today, pt denies new-onset weakness, bowel/bladder incontinence, or any other signs or symptoms of cauda equina syndrome. There are no signs of acute intoxication, and no indications of medication diversion or overuse. In addition to above, 13-point review of systems is also negative for chest pain , shortness of breath, changes in vision, changes in hearing, new onset weakness , abdominal pain, diarrhea, extreme fatigue, malaise, fever, skin changes, homicidal or suicidal ideation, or bowel or bladder incontinence. Vital Signs: Reviewed in EMR Gen: AAOx3, NAD HEENT: hearing grossly normal Pulm: resp unlabored Neck: supple, trachea midline Positive greater trochanter tenderness bilaterally ROM in flexion C-spine: full ROM extension C-spine: reduced She has normal muscle strength in the upper extremities bilaterally, and normal and symmetrical deep tendon reflexes Positive tenderness in the cervical paravertebral area bilaterally Imaging: MRI lumbar spine dated 12/27/16 demonstrates a tiny central disc protrusion at the L2-L3 level with mild anterior thecal sac compression. At the L1-L2 level there is minimal central disc bulge with anterior thecal sac contact. There is no central canal or foraminal stenosis noted at any level. Assessment: 1. cervical radiculitis 2. lumbar radiculitis 3. chronic pain syndrome 4. Cervical spondylosis without myelopathy Plan: 1. Explanation: Opioid and psychological risk scores were reviewed. Diagnoses , prognoses, and multiple treatment options including but not limited to physical therapy, interventional therapies, adjuvant medical therapies, narcotic medication therapies, and surgery were discussed with the patient and all questions were answered to the patient's satisfaction. 2. Opioid agreement: Patient has previously signed narcotic agreement, and was orally counseled to not overuse, abuse, divert, or cell medications, and to take them as prescribed by only 1 healthcare provider. The patient was also counseled to store opioid medications in a safe and preferably locked location. Patient was also counseled against driving or operating heavy equipment while using narcotic medications and also to not use alcohol or any illicit or recreational drugs. The patient verbalized understanding that lack of compliance with any of the above and likely result in failure to renew narcotic prescriptions, possible discharge from the clinic, and possible legal ramifications thereafter if indicated. 3. Counseling: The patient was counseled extensively on SMOKING CESSATION, BODY MASS INDEX, EXERCISE. Specifically, the patient was instructed regarding the importance of smoking cessation, weight control, and exercise in the context of both chronic pain and overall health. 4. Procedures: May need an greater trochanter bursa steroid injection bilaterally in the future if her lateral hip pain does not umu 5. Consultations: None 6. Investigations: MAPS queried and appropriate 7. Medications: [place] 7.5/325 #90 , Motrin 800 mg, Neurontin 3 times a day, baclofen 10 mg at night 8. MME/day: 22.5 (unchanged) 9. Disposition: Return to clinic in 8 weeks PQRS measures: 1-Patient's medications are documented in the chart. 2-Tobacco use is negative 3-Patient has not had a pneumococcal vaccine. 4-Advanced care planning discussed, patient unable to give. 5-Opioid contract signed with the patient. 6-Pain positive, follow-up visit or procedure scheduled 7-Patient's blood pressure measured and documented, and patient will follow up with the primary care due to hypertension. 8-Patient's weight was measured, and body mass index ABOVE the normal limits, and counseling was done. Patient instructed to follow up with PCP. 9-Patient WAS NOT identified as an unhealthy alcohol user. Objective - Vital Signs Vital signs: Vital Signs Temp Pulse 81 12/03/17 13:54 Resp 18 12/03/17 13:54 BP 116/82 12/03/17 13:54 Pulse Ox 97 12/03/17 13:54 Intake & Output 12/02/17 12/03/17 12/03/17 18:59 06:59 18:59 Weight 83.007 kg
== END | disposition home or self-care (01) ==
LOC: PNWHC3 12:58
PROVIDERS: ATTEND Anesthesiology
DX: G89.4 Chronic pain syndrome (principal); M47.22 Other spondylosis with radiculopathy, cervical region; M54.16 Radiculopathy, lumbar region; Z79.899 Other long term (current) drug therapy; Z79.891 Long term (current) use of opiate analgesic; Z79.1 Long term (current) use of non-steroidal anti-inflammatories (NSAID)
CPT/HCPCS: 99211

== ENCOUNTER 2018-01-08 08:38 | Emergency (ER) | payer OTHER, BC ==
[2018-01-08 09:01] VITALS: RESP 18
[2018-01-08] MEDS ORDERED: HYDROcodone/APAP 7.5-325MG 1 EACH TAB PO ONE (10:01)
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
[2018-01-08 13:06] VITALS: BP 110/77; PULSE 67; TEMP 97.7
== END 2018-01-08 13:06 | disposition home or self-care (01) ==
LOC: EC 08:38
DX: S76.012A Strain of muscle, fascia and tendon of left hip, initial encounter (principal); S80.01XA Contusion of right knee, initial encounter; M47.22 Other spondylosis with radiculopathy, cervical region; S80.02XA Contusion of left knee, initial encounter; M50.10 Cervical disc disorder with radiculopathy, unspecified cervical region; M54.5 Low back pain; F32.9 Major depressive disorder, single episode, unspecified; F41.9 Anxiety disorder, unspecified; Z79.899 Other long term (current) drug therapy; V47.5XXA Car driver injured in collision with fixed or stationary object in traffic accident, initial encounter; Y92.410 Unspecified street and highway as the place of occurrence of the external cause
CPT/HCPCS: 72040; 73502; 73562; 99284; L1830

== ENCOUNTER → 2018-01-28 | Outpatient (CLI) | payer BC ==
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
[2018-01-28 14:02] VITALS: RESP 16
[2018-01-28 14:06] VITALS: BP 152/93; PULSE 71
== END | disposition home or self-care (01) ==
LOC: PNWHC3 13:32
PROVIDERS: ATTEND Hospitalist
DX: M54.12 Radiculopathy, cervical region (principal); M62.81 Muscle weakness (generalized); F11.20 Opioid dependence, uncomplicated; Z79.899 Other long term (current) drug therapy
CPT/HCPCS: 99211

== ENCOUNTER → 2018-02-19 | Day surgery (SDC) | payer BC ==
[2018-02-18 08:48] VITALS: BMI 30.9
[~2018-02-19] MED LIST changes: -LACTATED RINGERS 1,000 ML IV SCH; +SODIUM CHLORIDE 0.9% 500 ML 500 ML IV ONE
[2018-02-19 10:37] VITALS: TEMP 98.3
--- NOTE | 2018-02-19 11:19 | P.PCN ---
Date of Procedure: 02/19/18 Procedure(s) Performed: . PROCEDURE 1. Cervical epidural steroid injection under fluoroscopic guidance, C7-T1 2. Cervical epidurogram. PREOPERATIVE DIAGNOSIS: 1- Cervical Degenerative Disc Diseases 2- Cervical radiculopathy. POSTOPERATIVE DIAGNOSIS: : 1- Cervical Degenerative Disc Diseases , 2- Cervical radiculopathy. ANESTHESIA: Local anesthesia with lidocaine 1 % , and moderate sedation, with Versed 2 mg ,and Fentanyl 50 mcg. EBL 0 PROCEDURE INDICATION: The patient with neck pain and radiculitis unresponsive to conservative treatment consents for procedure. PROCEDURE DESCRIPTION / TECHNIQUE: The patient was seen and identified in the preoperative area. Risks, benefits, complications, including but not limited to infections ,bleeding , allergic reactions to the medications ,and not complete pain releife, and alternatives were discussed with the patient, the patient agreed to proceed with the procedure and signed the consent. Patient was taken to the OR and time out was completed. The patient was placed in the prone position on the procedure table. A pillow was placed under the patients chest to increase the cervical interlaminar space. The cervical area was prepped and draped in the usual sterile fashion. Vital signs were closely monitored during the procedure. Conscious sedation was used during the procedure to decrease patients anxiety. Using anterior-posterior fluoroscopy, the C7-T1 interlaminar space was identified and the skin over this site was marked and then infiltrated with 1% lidocaine subcutaneously. Subsequently, a 20-gauge 3-1/2-inch Tuohy epidural needle was inserted and advanced toward the epidural space by means of the `` hanging-drop technique and guided by AP and lateral fluoroscopy. The correct needle position in the epidural space was verified with the injection of 2 mL of the water soluble contrast dye Isovue-200 and observing an excellent epidurogram with the epidural spread of the dye, after negative aspiration for blood and CSF and in the absence of paresthesias. Again after negative aspiration, mixture containing 20 mg Dexamethasone and 2 ml of preservative- free normal saline injected and a washout of epidurogram was seen. Needle was withdrawn intact, skin was cleansed, and bandages were applied. Complications= none. Disposition= patient was placed in supine position and transferred to the recovery room area in stable condition and there was no evidence of upper or lower extremity motor or sensory deficit after the procedure patient was discharged from recovery room after discharge criteria met and home discharge instructions was given by the staff and patient will follow with the pain clinic in 2-4 weeks
[2018-02-19 11:30] VITALS: RESP 18
--- NOTE | 2018-02-19 11:42 | FL ---
Fluoroscopy History: 1 sec fl time. 1 image scanned.
[2018-02-19 11:48] VITALS: BP 128/80; PULSE 77
== END | disposition home or self-care (01) ==
LOC: ORPAIN 10:01
PROVIDERS: ATTEND Specialist
DX: M50.10 Cervical disc disorder with radiculopathy, unspecified cervical region (principal)
CPT/HCPCS: 62321; J2250; J1100; J3010; Q9966

== ENCOUNTER → 2018-03-14 | Outpatient (CLI) | payer BC ==
[2018-03-14 14:03] VITALS: PULSE 66; RESP 16
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
== END ==
LOC: PNWHC3 13:14
PROVIDERS: ATTEND Specialist
DX: M54.12 Radiculopathy, cervical region (principal); M62.81 Muscle weakness (generalized); Z79.891 Long term (current) use of opiate analgesic
CPT/HCPCS: 99211

== ENCOUNTER → 2018-04-06 | Outpatient (CLI) | payer BC ==
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
== END ==
LOC: RADMRIMAIN 11:28
PROVIDERS: ATTEND Specialist
DX: M48.02 Spinal stenosis, cervical region (principal); M50.122 Cervical disc disorder at C5-C6 level with radiculopathy
CPT/HCPCS: 72141

== ENCOUNTER → 2018-05-09 | Outpatient (CLI) | payer BC ==
[2018-05-09 13:41] VITALS: BP 127/87; PULSE 64; RESP 16
--- NOTE | 2018-05-09 14:06 | P.PN ---
Subjective Progress Note Date: 05/09/18 This is a 53-year-old lady with history of neck and lower back pain. The patient has been having intervention pain procedures and opioids to treat her pain. She just had another MRI on the cervical spine which showed mild progression from previously including posterior disc herniation at C4 5 level which contacts the anterior cervical cord with bilateral foraminal encroachment and also moderate tenderness stenosis at C5 6 level with bilateral foraminal encroachment. The patient feels this pain radiating down both arms with occasional numbness and tingling in the arms. The patient denies any new symptoms since last time we saw her. She still goes to her chiropractor for neck "adjustment". 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 Today, pt denies new-onset weakness, bowel/bladder incontinence, or any other signs or symptoms of cauda equina syndrome. There are no signs of acute intoxication, and no indications of medication diversion or overuse. In addition to above, 13-point review of systems is also negative for chest pain , shortness of breath, changes in vision, changes in hearing, new onset weakness , abdominal pain, diarrhea, extreme fatigue, malaise, fever, skin changes, homicidal or suicidal ideation, or bowel or bladder incontinence. Vital Signs: Reviewed in EMR Gen: AAOx3, NAD HEENT: PERRLA,hearing grossly normal Pulm: resp unlabored,CTA Heart:S1,S2, No Mur Neck: supple, trachea midline Decreased range of motion of the cervical spine for right and left rotation Neuro exam of the upper extremities: Normal and symmetrical muscle strength Significant tenderness in the cervical paravertebral musculature bilaterally and the right trapezius muscle Neuro: CN II-XII grossly intact, Imaging: Reviewed in EMR/chart Assessment: Cervical spondylosis without myelopathy Cervical radiculopathy Lumbar spondylosis without myelopathy Opioid dependence Plan: 1. Explanation: Opioid and psychological risk scores were reviewed. Diagnoses , prognoses, and multiple treatment options including but not limited to physical therapy, interventional therapies, adjuvant medical therapies, narcotic medication therapies, and surgery were discussed with the patient and all questions were answered to the patient's satisfaction. 2. Opioid agreement: Signed with the patient and the patient is warned not to use opioids while driving or before driving and not to combine opioids with benzodiazepines or alcohol. 3. Counseling: The patient was counseled extensively on SMOKING CESSATION, BODY MASS INDEX, EXERCISE. Specifically, the patient was instructed regarding the importance of smoking cessation, obesity, and exercise in the context of both chronic pain and overall health. 4. Procedures: None at this time 5. Consultations: None. The patient is warned against having aggressive neck adjustments by her chiropractor 6. Investigations: None 7. Medications: Continue [place] 0.5 mg 3 times a day plus Neurontin and Zanaflex. We will plan on trying to wean her down on [place] as much as we can. 8. Disposition: Return to clinic in 8 weeks 9. Maps were reviewed and were appropriate. PQRS measures: 1-Patient's medications are documented in the chart. 2-Tobacco use is negative, counseling given 3-Patient has had a pneumococcal vaccine. 4-Advanced care planning discussed, patient unable to give 5-Opioid contract signed with the patient. 6-Pain positive, follow-up visit or procedure scheduled 7-Patient's blood pressure measured and documented within normal limits. 8-Patient's weight was measured, and body mass index ABOVE the normal limits, and counseling was done. Patient instructed to follow up with PCP. 9-Patient WAS NOT identified as an unhealthy alcohol user. Controlled Substance Measures Is patient prescribed a controlled substance at discharge?: Yes When asked, does pt state using other controlled substances?: No If prescribed controlled substance>3 days was MAPS reviewed?: Yes If Rx opioid, was Start Talking consent form obtained?: Yes If opioid is for acute pain is fill amount 7 days or less?: No Was information provided regarding opioid addiction?: Yes Objective - Vital Signs Vital signs: Vital Signs Temp Pulse 64 05/09/18 13:33 Resp 16 05/09/18 13:33 BP 127/87 05/09/18 13:33 Pulse Ox 99 05/09/18 13:33 Intake & Output 05/08/18 05/09/18 05/09/18 18:59 06:59 18:59 Weight 81.647 kg
== END | disposition home or self-care (01) ==
LOC: PNWHC3 12:43
PROVIDERS: ATTEND Anesthesiology
DX: M48.02 Spinal stenosis, cervical region (principal); M50.121 Cervical disc disorder at C4-C5 level with radiculopathy; M47.22 Other spondylosis with radiculopathy, cervical region; M47.816 Spondylosis without myelopathy or radiculopathy, lumbar region; F11.20 Opioid dependence, uncomplicated; Z79.899 Other long term (current) drug therapy; Z98.890 Other specified postprocedural states
CPT/HCPCS: 99211

== ENCOUNTER → 2018-07-04 | Outpatient (CLI) | payer BC ==
[2018-07-04 11:56] VITALS: BP 118/85; PULSE 75; RESP 16
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
== END ==
LOC: PNWHC3 11:28
PROVIDERS: ATTEND Specialist
DX: G89.29 Other chronic pain (principal); M48.02 Spinal stenosis, cervical region; M50.30 Other cervical disc degeneration, unspecified cervical region; M51.36 Other intervertebral disc degeneration, lumbar region; Z79.899 Other long term (current) drug therapy; Z79.891 Long term (current) use of opiate analgesic
CPT/HCPCS: 99211

== ENCOUNTER → 2018-08-29 | Outpatient (CLI) | payer BC ==
--- NOTE | 2018-08-29 11:28 | P.PAINPG ---
Subjective Progress Note Date: 08/29/18 Krysta is a 53-year-old female who presents today for a follow-up she has a long history of chronic neck pain and back pain. She is complaining of neck pain bothers her the most today. She reports that she has pain in the neck and radiating into her right arm associated with numbness and tingling in the right arm into the right hand. She reports that is limiting her everyday activities. She denies any significant lower extremity weakness. She denies any bowel or bladder incontinence. Her neck pain is described as an aching pain with sharp shooting pain into the arm and right hand. She currently uses [place] 7.52-3 times per day, gabapentin 400 mg 2-3 times per day. She also uses Zanaflex 4 mg at nighttime as needed she denies any side effects from the current medications. She is inquiring about repeating a cervical epidural steroid injection. She is working on changing her diet and avoiding high carbohydrate foods Objective - Exam PHYSICAL EXAM: Constitutional: Awake and alert no distress Cardiovascular exam: Regular rate, no lower extremity edema, palpable pulses bilaterally Respiratory exam: No audible wheezing, no accessory muscle usage Abdominal exam: Soft nontender Muscular skeletal exam: - Cervical spine: Minimal tenderness to palpation bilaterally. Range of motion is limited in the flexion, extension, and lateral side bending to both sides. Facet loading is positive bilaterally. Spurling's is positive on the right. Sheffield's is negative bilateral - Lumbar spine: Preserved lumbar lordosis. No changes in skin. Nontender palpation bilateral. Patient has full range of motion in flexion and extension as well as lateral sidebending. Straight leg raise is negative. Facet loading is negative. Neuro exam: Normal sensation bilateral upper and lower extremities. Deep tendon reflexes are 2+ bilaterally. Sheffield's is negative Psychiatric exam: Cooperative, good insight Assessment and Plan Assessment: #1 cervical radiculopathy #2 lumbar spondylosis without myelopathy #3 chronic opioid dependence Plan: Krysta would like to move forward with a cervical epidural steroid injection. I discussed the risks, benefits, and alternatives to the procedure. I will also refill her medications for [place] 7.5 mg #90 tablets, gabapentin 400 mg #90 tablets, and Zanaflex 4 mg #30 tablets. Maps was checked on today's visit, opioid start talking form is on the chart, urine drug screens have been appropriate, SOAP score is on the chart. Urine drug screen was taken on today's visit PQRS Measure Charge Sheet Measure #130: Documentation of Current Meds in Medical Chart: Patient's medications documented in chart Measure #226: Tobacco Use: Screen & Cessation Intervention: Pt screened for tobacco use AND intervention given Measure #111: Pneumonia Vaccination: Pneumococcal vaccine administered or previously received Measure #47: Advance Care Plan: Advance care planning discussed & documented, plan or surrogate given Measure #412: Opioid Treatment Agreement: Documented signed opioid trtmnt agreemnt min once during opioid trtmnt Measure #408: Opioid Therapy Follow-up Evaluation: Patient had f/u eval minimum every 3 months during opioid therapy Measure #317: Preventitive Care & Scrn High Bld Press & F/U: Normal blood pressure, f/u not required Measure #128: Body Mass Index (BMI) Screening & Follow-up: BMI documented ABOVE normal parameters - f/u documented Measure #131: Pain Assessment & Follow-up: Pain positive & plan documented Measure #431: Unhealthy Alcohol Use Preventative Care & Scrn: Patient identified as unhealthy alcohol user; counseling given PQRS Narrative: Smoking Status Never smoker Narcotic Agreement Date Signed 08/13/17 Hx Alcohol Use (MH) No Home Medications: Ambulatory Orders buPROPion HCL [Wellbutrin XL] 300 mg PO QAM 03/31/16 lamoTRIgine [LaMICtal] 400 mg PO QAM 03/31/16 traZODone HCL [Desyrel] 100 mg PO HS 05/11/16 Gabapentin [Neurontin] 400 mg PO TID #90 cap 08/13/17 HYDROcodone/APAP 7.5-325MG [[place] 7.5-325] 1 tab PO Q8HR PRN #90 tab 09/11/17 Ibuprofen [Motrin] 800 mg PO Q8HR PRN #90 tab 09/11/17 tiZANidine [Zanaflex] 4 mg PO HS 03/14/18 Controlled Substance Measures - Controlled Substance Measures Is patient prescribed a controlled substance at discharge?: Yes When asked, does pt state using other controlled substances?: No If prescribed controlled substance>3 days was MAPS reviewed?: Yes If Rx opioid, was Start Talking consent form obtained?: Yes If opioid is for acute pain is fill amount 7 days or less?: No Was information provided regarding opioid addiction?: Yes
== END | disposition home or self-care (01) ==
LOC: PNWHC3 10:45
PROVIDERS: ATTEND Hospitalist
DX: G89.29 Other chronic pain (principal); M47.816 Spondylosis without myelopathy or radiculopathy, lumbar region; M54.12 Radiculopathy, cervical region; F11.20 Opioid dependence, uncomplicated; Z79.899 Other long term (current) drug therapy; Z79.1 Long term (current) use of non-steroidal anti-inflammatories (NSAID)
CPT/HCPCS: 80307; 99211; G0482

== ENCOUNTER 2018-09-12 08:49 | Day surgery (SDC) | payer BC ==
[2018-09-10 09:29] VITALS: BMI 31.8
[2018-09-12 09:18] VITALS: RESP 16; TEMP 97.6
[2018-09-12] MEDS ORDERED: LIDOCAINE 1% 20 ML VIAL (10MG/ML) FOR IV START INTRADERMA ONE (09:23)
[2018-09-12] MEDS: LACTATED RINGERS 1,000 ML IV SCH ×2 (09:23→10:07)
--- NOTE | 2018-09-12 10:24 | P.PCN ---
Date of Procedure: 09/12/18 Procedure(s) Performed: . PROCEDURE 1. Cervical epidural steroid injection under fluoroscopic guidance, C7-T1 2. Cervical epidurogram. PREOPERATIVE DIAGNOSIS: 1- Cervical radiculopathy. POSTOPERATIVE DIAGNOSIS: : 1-cervical radiculopathy. ANESTHESIA: moderate sedation, with Versed 2 mg and Fentanyl 100 mcg. EBL 0 PROCEDURE INDICATION: The patient with neck pain and radiculitis unresponsive to conservative treatment consents for procedure. PROCEDURE DESCRIPTION / TECHNIQUE: The patient was seen and identified in the preoperative area. Risks, benefits, complications, including but not limited to infections ,bleeding , allergic reactions to the medications ,and not complete pain releife, and alternatives were discussed with the patient, the patient agreed to proceed with the procedure and signed the consent. Patient was taken to the OR and time out was completed. The patient was placed in the prone position on the procedure table. A pillow was placed under the patients chest to increase the cervical interlaminar space. The cervical area was prepped and draped in the usual sterile fashion. Vital signs were closely monitored during the procedure. Conscious sedation was used during the procedure to decrease patients anxiety. Using anterior-posterior fluoroscopy, the C7-T1 interlaminar space was identified and the skin over this site was marked and then infiltrated with 1% lidocaine subcutaneously. Subsequently, a 20-gauge 3-1/2-inch Tuohy epidural needle was inserted and advanced toward the epidural space by means of the ``hanging-drop technique and guided by AP and lateral fluoroscopy. The correct needle position in the epidural space was verified with the injection of 2 mL of the water soluble contrast dye Isovue-200 and observing an excellent epidurogram with the epidural spread of the dye, after negative aspiration for blood and CSF and in the absence of paresthesias. Again after negative aspiration, mixture containing 20 mg Dexamethasone and 2 ml of preservative- free normal saline injected and a washout of epidurogram was seen. Needle was w ithdrawn intact, skin was cleansed, and bandages were applied. Complications= none. Disposition= patient was placed in supine position and transferred to the recovery room area in stable condition and there was no evidence of upper or lower extremity motor or sensory deficit after the procedure patient was discharged from recovery room after discharge criteria met and home discharge instructions was given by the staff and patient will follow with the pain clinic in 2-4 weeks
[2018-09-12] MEDS ORDERED: IV FLUID CONTINUATION 500 ML IV ONE (10:36)
[2018-09-12 10:58] VITALS: BP 127/73; PULSE 66
--- NOTE | 2018-09-12 12:57 | FL ---
EXAMINATION TYPE: FL guided pain mgmt statistic DATE OF EXAM: 09/12/2018 HISTORY: Flouroscopy time 4 seconds of fluoroscopy provided. IMPRESSION: 1. Fluoroscopy time.
== END 2018-09-12 11:13 | disposition home or self-care (01) ==
LOC: ORPAIN 08:49
PROVIDERS: ATTEND Specialist
DX: M54.12 Radiculopathy, cervical region (principal); Z78.0 Asymptomatic menopausal state
CPT/HCPCS: 62321; J2250; J1100; J3010; Q9966

== ENCOUNTER 2018-10-03 07:59 | Day surgery (SDC) | payer BC ==
[2018-10-01 15:56] VITALS: BMI 31.8
[2018-10-03 08:20] VITALS: TEMP 97.9
[2018-10-03] MEDS ORDERED: LIDOCAINE 1% 20 ML VIAL (10MG/ML) FOR IV START INTRADERMA ONE (08:30)
[2018-10-03] MEDS ORDERED: LACTATED RINGERS 1,000 ML IV ONE (08:30)
[2018-10-03] MEDS ORDERED: IV FLUID CONTINUATION 1,000 ML IV ONE (09:19)
--- NOTE | 2018-10-03 09:26 | P.PCN ---
Date of Procedure: 10/03/18 Procedure(s) Performed: Diagnoses: Cervical radiculopathy Cervical degenerative disc disease POSTOPERATIVE DIAGNOSIS: Cervical radiculopathy Cervical degenerative disc disease PROCEDURE Cervical Epidural steroid injection under fluoroscopic guidance at the C7-T1 interspace using right paramedian approach Cervical epidurogram ANESTHESIA: Local with 1% lidocaine 3 ml and IV sedation with Versed and fentanyl EBL: Minimal PROCEDURE INDICATION: The patient presents with cervical radicular symptoms unresponsive to conservative treatment. This is the second cervical epidural steroid injection. PROCEDURE DESCRIPTION / TECHNIQUE: The patient was seen and identified in the preoperative area. Risks, benefits, complications including but not limited to infections ,bleeding ,allergic reaction to the medications ,nerve damage and incomplete pain relief, and alternatives were discussed with the patient. The patient agreed to proceed with the procedure and signed the consent. IV was started, and vital signs were stable. Patient was taken to the OR and time out was completed. The patient was placed in the prone position on procedure table and a pillow was placed under the chest area. The cervical area was prepped and draped in the usual sterile fashion. Conscious sedation was used during the procedure to decrease patients anxiety. Vital signs was monitored during the entire procedure. Using anterior-posterior fluoroscopy, the C7-T1 interlaminar space was identified and the skin over this site was marked and then infiltrated with 1% lidocaine subcutaneously. Subsequently, a 20-gauge Tuohy epidural needle was inserted and advanced toward the epidural space using the loss of resistance technique and guided by AP and 50 oblique fluoroscopy. The correct needle position in the epidural space was verified. After negative aspiration for blood and CSF and in the absence of paresthesias, Isovue 200 2 mL's was injected under live fluoroscopy with good epidural spread. After negative aspiration, a 5 ml mixture containing 10 mg of dexamethasone, 3 mL of preservative free normal saline and 1 mL of 1% lidocaine was injected. Needle was withdrawn intact, skin was cleansed, and bandages were applied. COMPLICATIONS: None DISPOSITION / PLANS: The patient was placed in a supine position and transferred to the recovery area in a stable condition for observation. There was no evidence of lower extremity motor or sensory deficit after the procedure. Patient was discharged from the recovery room after meeting discharge criteria. Home discharge instructions were given to the patient by the staff. The patient will schedule a follow up in the clinic in 2-4 weeks.
[2018-10-03 09:54] VITALS: BP 115/71; PULSE 72; RESP 16
--- NOTE | 2018-10-03 10:16 | FL ---
EXAMINATION TYPE: FL guided pain mgmt statistic DATE OF EXAM: 10/03/2018 CLINICAL HISTORY: Neck pain. TECHNIQUE: Fluoroscopy. COMPARISON: None. FINDINGS: Fluoroscopic guidance was provided during pain relief procedure performed by Dr. Dalton. A t otal of 8 seconds of fluoroscopic time was utilized during the procedure and 3 spot images are acquir ed. Images acquired shows needle localization of the cervical spine. IMPRESSION: As Above.
== END 2018-10-03 09:54 | disposition home or self-care (01) ==
LOC: ORPAIN 07:59
PROVIDERS: ATTEND Anesthesiology
DX: M50.10 Cervical disc disorder with radiculopathy, unspecified cervical region (principal)
CPT/HCPCS: 62321; J2250; J1100; J3010; Q9966; 99152

== ENCOUNTER → 2018-10-24 | Outpatient (CLI) | payer BC ==
[2018-10-24 12:10] VITALS: BP 131/81; PULSE 90; RESP 18
--- NOTE | 2018-10-24 12:38 | P.PN ---
Subjective Progress Note Date: 10/24/18 This is a 53-year-old lady with history of cervical radiculopathy and cervicogenic headache. The patient had multiple injections previously which resulted in significant relief of her pain . She denies any numbness in her arms at this point. She does have some pain in the right shoulder and the upper thoracic area on the right side of the spine. She takes [place] 7.5 mg sparingly and she still has one prescription to be filled. The patient is applying for disability at this point. Today, pt denies new-onset weakness, bowel/bladder incontinence, or any other signs or symptoms of cauda equina syndrome. There are no signs of acute intoxication, and no indications of medication diversion or overuse. In addition to above, 13-point review of systems is also negative for chest pain, shortness of breath, changes in vision, changes in hearing, new onset weakness, abdominal pain, diarrhea, extreme fatigue, malaise, fever, skin changes, homicidal or suicidal ideation, or bowel or bladder incontinence. Vital Signs: Reviewed in EMR Gen: AAOx3, NAD HEENT: PERRLA,hearing grossly normal Pulm: resp unlabored,CTA Heart:S1,S2, No Mur Neck: supple, trachea midline Neuro exam of the upper extremities: Normal muscle strength in the upper extremities bilaterally Straight leg raising test: Cesar's test: Range of motion of the lumbar spine: Facet loading test: Tenderness in the paravertebral musculature: Positive tenderness in the right trapezius muscle and the right thoracic paravertebral musculature. Neuro: CN II-XII grossly intact, Imaging: Reviewed in EMR/chart Assessment: Cervical radiculopathy Cervicogenic headache Cervical spondylosis without myelopathy Myofascial pain Plan: 1. Explanation: Opioid and psychological risk scores were reviewed. Diagnoses, prognoses, and multiple treatment options including but not limited to physical therapy, interventional therapies, adjuvant medical therapies, narcotic medication therapies, and surgery were discussed with the patient and all questions were answered to the patient's satisfaction. 2. Opioid agreement: Signed with the patient and the patient is warned not to use opioids while driving or before driving and not to combine opioids with benzodiazepines or alcohol. 3. Counseling: The patient was counseled extensively on SMOKING CESSATION, BODY MASS INDEX, EXERCISE. Specifically, the patient was instructed regarding the importance of smoking cessation, obesity, and exercise in the context of both chronic pain and overall health. 4. Procedures: None at this point 5. Consultations: Referral for massage therapy 6. Investigations: None 7. Medications: Decreased [place] to 7.5 mg twice a day as needed for pain 8. Disposition: Return to clinic in 8 weeks 9. Maps were reviewed and were appropriate. Controlled Substance Measures Is patient prescribed a controlled substance at discharge?: Yes When asked, does pt state using other controlled substances?: No If prescribed controlled substance>3 days was MAPS reviewed?: Yes If Rx opioid, was Start Talking consent form obtained?: Yes If opioid is for acute pain is fill amount 7 days or less?: No Was information provided regarding opioid addiction?: Yes Objective - Vital Signs Vital signs: Vital Signs Temp Pulse 90 10/24/18 11:58 Resp 18 10/24/18 11:58 BP 131/81 10/24/18 11:58 Pulse Ox 98 10/24/18 11:58 Intake & Output 10/23/18 10/24/18 10/24/18 18:59 06:59 18:59 Weight 81.647 kg
== END | disposition home or self-care (01) ==
LOC: PNWHC3 11:48
PROVIDERS: ATTEND Anesthesiology
DX: M47.22 Other spondylosis with radiculopathy, cervical region (principal); M79.18 Myalgia, other site; R51 Headache; Z79.891 Long term (current) use of opiate analgesic
CPT/HCPCS: 99211

== ENCOUNTER → 2018-12-19 | Outpatient (CLI) | payer BC ==
[2018-12-19 12:16] VITALS: BP 130/75; PULSE 84; RESP 84
--- NOTE | 2018-12-19 15:10 | P.PAINPG ---
Subjective Progress Note Date: 12/19/18 This is a 53-year-old lady with history of cervical radiculopathy and cervicogenic headache. The patient had multiple injections previously which resulted in significant relief of her pain . She denies any numbness in her arms at this point. She does have some pain in the right shoulder and the upper thoracic area on the right side of the spine. At the last visit her dose of Fentress was decreased from 7.5 3 times a day when necessary to 7.5 twice a day when necessary. She states that she is doing well on this dose. The patient is applying for disability at this point. Today, pt denies new-onset weakness, bowel/bladder incontinence, or any other signs or symptoms of cauda equina syndrome. There are no signs of acute intoxication, and no indications of medication diversion or overuse. Objective - Vital Signs Vital signs: Vital Signs Temp Pulse 84 12/19/18 12:10 Resp 84 H 12/19/18 12:10 BP 130/75 12/19/18 12:10 Pulse Ox 95 12/19/18 12:10 Intake & Output 12/18/18 12/19/18 12/19/18 18:59 06:59 18:59 Weight 78.925 kg - Exam Vital Signs: Reviewed in EMR GENERAL: Well appearing, in no acute distress, PSYCH: Mood and affect is appropriate. Awake, alert, and oriented SKIN: Skin color, texture, turgor normal, no rashes or lesions HEENT: Normocephalic, atraumatic. EOM intact CV: No pedal edema RESP: Respirations are unlabored, no audible wheezing GI: Abdomen non-distended MUSCULOSKELETAL: Bilateral upper and lower extremity strength is normal and symmetric. No atrophy or tone abnormalities are noted. Neck: Pain to palpation over cervical paraspinals. . No pain with neck flexion, extension, or lateral flexion. No obvious deformity or signs of trauma. Normal cervical lordotic curve and normal cervical spine range of motion Extremities: Peripheral joint ROM is full and pain free without obvious instability or laxity in all four extremities. No edema or skin discolorations noted. Gait: Gait is anantalgic NEUR: No loss of sensation is noted. Cranial nerves are grossly intact. Assessment and Plan Assessment: Assessment: 1. Cervical radicular pain 2. Cervical spondylosis 3. Chronic opiate use 4. Applying for disability Plan: 1. Explanation: Opioid and psychological risk scores were reviewed. Diagnoses, prognoses, and multiple treatment options including but not limited to physical therapy, interventional therapies, adjuvant medical therapies, narcotic medication therapies, and surgery were discussed with the patient and all questions were answered to the patient's satisfaction. Furthermore I offered her cervical cervical medial branch workup for cervicogenic headaches, she will look into this in the future. 2. Opioid agreement: New agreement placed today 3. Counseling: Patient was counseled on stay active 5. Consultations: None 6. Investigations: Images reviewed 7. Medications: Her gabapentin and Fentress refilled, would consider decreasing Fent[place] to 5-325 twice a day next visit 8. Disposition: In 8 weeks for medication refill , PQRS Measure Charge Sheet Measure #226: Tobacco Use: Screen & Cessation Intervention: Pt not a tobacco user Measure #111: Pneumonia Vaccination: Pneumococcal vaccine NOT administered or previously given Measure #47: Advance Care Plan: Advance care planning discussed & documented, pt chose/unable to give Measure #412: Opioid Treatment Agreement: Documented signed opioid trtmnt agreemnt min once during opioid trtmnt Measure #408: Opioid Therapy Follow-up Evaluation: Patient had f/u eval minimum every 3 months during opioid therapy Measure #131: Pain Assessment & Follow-up: Pain positive & plan documented, Follow-up scheduled PQRS Narrative: Smoking Status Never smoker Narcotic Agreement Date Signed 08/13/17 Blood Pressure 130/75 Pain Intensity [Right Shoulder 4 ] Scale Used Numeric (1 - 10) Hx Alcohol Use (MH) No Home Medications: Ambulatory Orders buPROPion HCL [Wellbutrin XL] 300 mg PO QAM 03/31/16 lamoTRIgine [LaMICtal] 400 mg PO QAM 03/31/16 traZODone HCL [Desyrel] 100 mg PO HS 05/11/16 Gabapentin [Neurontin] 400 mg PO TID #90 cap 08/13/17 HYDROcodone/APAP 7.5-325MG [[place] 7.5-325] 1 tab PO Q8HR PRN #90 tab 09/11/17 Ibuprofen [Motrin] 800 mg PO Q8HR PRN #90 tab 09/11/17 tiZANidine [Zanaflex] 4 mg PO HS 03/14/18 Controlled Substance Measures - Controlled Substance Measures Is patient prescribed a controlled substance at discharge?: Yes When asked, does pt state using other controlled substances?: No If prescribed controlled substance>3 days was MAPS reviewed?: Yes If Rx opioid, was Start Talking consent form obtained?: Yes Was information provided regarding opioid addiction?: Yes
== END ==
LOC: PNWHC3 11:42
PROVIDERS: ATTEND Student in an Organized Health Care Education/Training Program
DX: M47.22 Other spondylosis with radiculopathy, cervical region (principal); Z79.891 Long term (current) use of opiate analgesic; Z79.1 Long term (current) use of non-steroidal anti-inflammatories (NSAID)
CPT/HCPCS: 99211

== ENCOUNTER 2018-12-26 08:14 | Day surgery (SDC) | payer BC ==
[2018-12-24 18:03] VITALS: BMI 30.6
[~2018-12-26 08:14] MED LIST changes: +LACTATED RINGERS 1,000 ML IV SCH; +LIDOCAINE 1% 20 ML VIAL (10MG/ML) FOR IV START INTRADERMA PRN; -SODIUM CHLORIDE 0.9% 500 ML 500 ML IV ONE
[2018-12-26 08:38] VITALS: TEMP 97.1
[2018-12-26] MEDS ORDERED: fentaNYL (PF) 50 MCG/ML 2 ML AMP IVP ONE ×2 (08:49→09:47)
[2018-12-26] MEDS ORDERED: LIDOCAINE 1% INJ 10MG/ML (20 ML MDV) ONE (11:32)
[2018-12-26] MEDS ORDERED: PROPOFOL 10 MG/ML 20 ML VIAL IV ONE (11:32)
--- NOTE | 2018-12-26 11:34 | P.GSHP ---
History of Present Illness H&P Date: 12/26/18 Chief Complaint: Screening colonoscopy This a 53-year-old female who presents today for screening colonoscopy. Patient denies a significant GI complaints. Past Medical History Past Medical History: Musculoskeletal Disorder, Osteoarthritis (OA) Additional Past Medical History / Comment(s): Migraines, Degenerative Joint Disease, BACK PAIN, NECK PAIN, bilateral hip pain. History of Any Multi-Drug Resistant Organisms: None Reported Past Surgical History: No Surgical Hx Reported Additional Past Surgical History / Comment(s): PAIN CLINIC PROCEDURES, LAST INJ 09/2018. Past Anesthesia/Blood Transfusion Reactions: No Reported Reaction Smoking Status: Never smoker - Past Family History Mother Family Medical History: No Reported History Medications and Allergies Home Medications Medication Instructions Recorded Confirmed Type buPROPion HCL [Wellbutrin XL] 300 mg PO QAM 03/31/16 12/24/18 History lamoTRIgine [LaMICtal] 400 mg PO QAM 03/31/16 12/24/18 History traZODone HCL [Desyrel] 100 mg PO HS 05/11/16 12/26/18 History Gabapentin [Neurontin] 400 mg PO TID #90 cap 08/13/17 12/24/18 Rx HYDROcodone/APAP 7.5-325MG [[place] 1 tab PO Q8HR PRN #90 tab 09/11/17 12/26/18 Rx 7.5-325] Ibuprofen [Motrin] 800 mg PO Q8HR PRN #90 tab 09/11/17 12/24/18 Rx tiZANidine [Zanaflex] 4 mg PO HS 03/14/18 12/24/18 History Phentermine HCl [Adipex-P] 37.5 mg PO DAILY 12/24/18 12/26/18 History Allergies Allergy/AdvReac Type Severity Reaction Status Date / Time No Known Allergies Allergy Verified 12/24/18 17:42 Surgical - Exam Vital Signs Temp Pulse Resp BP Pulse Ox 97.1 F L 72 18 130/78 98 12/26/18 08:37 12/26/18 08:37 12/26/18 08:37 12/26/18 08:37 12/26/18 08:37 - General well developed, well nourished, no distress - Eyes PERRL - ENT normal pinna - Neck no masses - Respiratory normal expansion - Cardiovascular Rhythm: regular - Abdomen Abdomen: soft, non tender Assessment and Plan Assessment: We'll perform screening colonoscopy.
[2018-12-26] MEDS ORDERED: SODIUM CHLORIDE 0.9% 500 ML 500 ML IV ONE (11:42)
--- NOTE | 2018-12-26 11:44 | P.OP ---
Date of Procedure: 12/26/18 Preoperative Diagnosis: Screening colonoscopy Postoperative Diagnosis: Mild diverticulosis Procedure(s) Performed: Colonoscopy Anesthesia: MAC Surgeon: Lex Dooley Pathology: none sent Condition: stable Disposition: PACU Description of Procedure: The patient's placed on the endoscopy table in the lateral position. She received IV sedation. Digital rectal exam was performed which revealed no abnormalities. The flexible colonoscope was then placed patient anus passed throughout the entire colon. The ileocecal valve was visualized. The cecum, ascending transverse colon appeared normal. In the descending; was mild diverticular changes. The scope was then brought back the rectum this appeared normal. Scope withdrawn for patient.
[2018-12-26 11:47] VITALS: RESP 16
[2018-12-26 12:07] VITALS: BP 122/71; PULSE 76
== END 2018-12-26 12:30 | disposition home or self-care (01) ==
LOC: ORWHC2ENDO 08:14
PROVIDERS: ATTEND Surgery
DX: Z12.11 Encounter for screening for malignant neoplasm of colon (principal); M19.90 Unspecified osteoarthritis, unspecified site; Z79.1 Long term (current) use of non-steroidal anti-inflammatories (NSAID); Z79.899 Other long term (current) drug therapy; F32.9 Major depressive disorder, single episode, unspecified; F41.9 Anxiety disorder, unspecified; G43.909 Migraine, unspecified, not intractable, without status migrainosus; M25.552 Pain in left hip; M25.551 Pain in right hip
CPT/HCPCS: J2001; J3010; J2704; G0121

== ENCOUNTER → 2019-02-04 | Outpatient (CLI) | payer BC ==
--- NOTE | 2019-02-05 12:52 | CT ---
EXAMINATION TYPE: CT soft tissue neck wo con DATE OF EXAM: 02/04/2019 HISTORY: Left sided facial skin lesions. BB's placed on regions of interest. COMPARISON: NONE CT DLP: 378.6 mGycm. Automated Exposure Control for Dose Reduction was Utilized. TECHNIQUE: CT scan of the neck is performed without intravenous contrast, axial images are obtained, coronal and sagittal reformatted images are reviewed. FINDINGS: Airway: No gross abnormality seen. Parotid/submandibular glands: Symmetric and unremarkable with an elongated superficial lobes extendin g anteriorly, right greater than left. Carotid/Vascular Structures: Suboptimally evaluated without contrast. Osseous Structures: There is reversal usual cervical lordosis that may be positional. Multilevel inte rvertebral disc space narrowing, posterior disc osteophyte complexes, and anterior osteophytes are se en. Evaluation of the spinal canal is limited on CT. Overall moderate degenerative disc disease of th e cervical spine. Other: A nonenlarged lymph node is seen deep to the palpable abnormality measuring 4 mm in short axis on series 3 image 56 overlying the right masseter. The second more cephalad palpable abnormality kamilah ears to correspond to the anterior aspect of the elongated parotid gland. No suspicious masses seen d eep to the palpable abnormalities. The thyroid gland is unremarkable. Secretions are seen within the posterior oropharynx. Lung apices are well aerated. Globes are symmetric and lenses are in place. Extraocular muscles are u nremarkable. IMPRESSION: 1. No abnormalities correspond to a nonenlarged superficial lymph node and elongation of the superfic ial lobe of the parotid gland. No suspicious mass. 2. Moderate multilevel degenerative disc disease of the cervical spine.
== END | disposition home or self-care (01) ==
LOC: RADCTMAIN 16:23
PROVIDERS: ATTEND Family Medicine
DX: L98.9 Disorder of the skin and subcutaneous tissue, unspecified (principal)
CPT/HCPCS: 70490

== ENCOUNTER → 2019-02-18 | Outpatient (CLI) | payer BC ==
[2019-02-18 13:00] VITALS: BP 134/86; PULSE 82; RESP 20
--- NOTE | 2019-02-18 13:57 | P.PAINPG ---
Subjective Progress Note Date: 02/18/19 The follow-up visit for this 54 years old female with a chronic history of severe neck pain with radiation to the upper extremity, she is diagnosed with cervical radiculopathy and cervical spondylosis , cervical foraminal stenosis, previously we have done cervical epidural steroid injection and she used to get excellent pain relief, currently she is complaining mostly of neck pain and more severe and intense on the left side, the neck pain increases with any neck movement or hyperextension of the neck, she denies any motor or sensory deficit, and she reported that the neck and radiated to the shoulder blade bilaterally that is more severe on the left side, she had no fever or night sweats. She de nies any change in the bowel movement or urination and she is currently on [place] 7.5/325 every 8 hours Motrin 800 mg 3 times a day when necessary and Zanaflex 4 mg daily at bedtime and Neurontin 400 mg 3 times a day, she denies any side effects of the medication she denies any excessive drowsiness or sleepiness and shape of the current medication is not helping enough to control her pain Objective - Vital Signs Vital signs: Vital Signs Temp Pulse 82 02/18/19 12:54 Resp 20 02/18/19 12:54 BP 134/86 02/18/19 12:54 Pulse Ox 93 L 02/18/19 12:54 - Exam Physical Examinations : -Constitutiona : Cooperative , not in acute distress . -HEENT : nech : supple , no Lymphadenopathy , normal thyroid size . : eyes : no ptosis , no icterus, no photophobia . : ENT : normal of hearing , normal oropharynx , no Thrush . - Respiratory : Chest clear to auscultations Bilaterally , no wheezing , no Rhonchi . - Cardiovascula : regular rate and rhythem , S1 , S2 , no S3 , no S4. - Gastrointestina : abdomen soft no tenderness , bowel sounds , no organomegally . - Genitourinary : Defferred . - neurologic : Cranial nerve II to XII intact , no focal neurological deffecit . -psychatric : alert , oriented X 3 , appropriate affect , intact judgment and insight . -Lymphatic : no Lymphadenopathy . - musculoskeltal : Cervical Spine motor stregnth in the deltoid and biceps, normal right side , normal Left side motor stregnth biceps and the wrist extensors normal right side ,normal left side . motor stregnth in the triceps muscle . normal Right side , normal Left side deep tendon reflexes normal at the biceps , normal at Brachioradialis , normal at triceps. cervical facet loading test: Positive Bilaterally Spurling test positive bilaterally. Neck distraction test positive bilaterally. Emily sign positive bilaterally. Lumber spine moter stegnth lower extremities ,thigh and legs 5/5 Right side , 5/5 Left side Assessment and Plan Plan: Assessment and plan= Cervical radiculopathy cervical degenerative disc disease , lumbar spondylosis with lumbar facet arthropathy . Patient continued to have pain after cervical epidural steroid injection 2 chronic and current use of high-risk medication (opioids) Patient denies any side effects of the current pain medication and the current treatment/medication helping the patient to do activity of daily living , Diagnoses, prognosis, treatment options, including but not limited to physical therapy, medication management, interventional therapies, and surgery, were discussed with the patient All the questions answered The narcotic consent was signed and patient agreed and understood the side effects and complications of opioid treatment. Patient signed the narcotic agreement, and was orally counseled, not to overuse, not to abuse, not to Divert , not tp sell pain medication, and to take it as prescribed only, Patient was counseled not to drive or operate heavy equipment while using narcotic medication, and advised not to use alcohol or any Illicit drugs while using the narcotis. understanding that lack of compliance with any of the above instructions, will likely to cause discharge from, the pain service, not to renew his narcotic prescriptions MAPS Reviwed and it was apropriate . Medication managements= patient will be given prescription refills for [place] 7.5/325 every 8 hours dispense 90 with 1 refill Motrin 800 mg 3 times a day dispense 90 with 1 refill and will increase Zanaflex 4 mg twice a day and continue Neurontin 400 mg 3 times a day dispense 90 with 1 refill. Interventions patient could benefit from cervical medial branch blocks C4 , C5 and C6 bilaterally , Time with Patient: Less than 30 PQRS Measure Charge Sheet Measure #130: Documentation of Current Meds in Medical Chart: Patient's medications documented in chart Measure #226: Tobacco Use: Screen & Cessation Intervention: Pt not a tobacco user Measure #111: Pneumonia Vaccination: Pneumococcal vaccine NOT administered or previously given Measure #47: Advance Care Plan: Advance care planning discussed & documented, pt chose/unable to give Measure #412: Opioid Treatment Agreement: Documented signed opioid trtmnt agreemnt min once during opioid trtmnt Measure #408: Opioid Therapy Follow-up Evaluation: Patient had f/u eval minimum every 3 months during opioid therapy Measure #317: Preventitive Care & Scrn High Bld Press & F/U: Normal blood pressure, f/u not required Measure #128: Body Mass Index (BMI) Screening & Follow-up: BMI documented ABOVE normal parameters - f/u documented Measure #131: Pain Assessment & Follow-up: Pain positive & plan documented, Follow-up scheduled Measure #431: Unhealthy Alcohol Use Preventative Care & Scrn: Patient not identified as an unhealthy alcohol user PQRS Narrative: Smoking Status Never smoker Narcotic Agreement Date Signed 08/13/17 Blood Pressure 134/86 Pain Intensity [Neck] 6 Scale Used Numeric (1 - 10) Hx Alcohol Use (MH) No Home Medications: Ambulatory Orders buPROPion HCL [Wellbutrin XL] 300 mg PO QAM 03/31/16 lamoTRIgine [LaMICtal] 400 mg PO QAM 03/31/16 traZODone HCL [Desyrel] 100 mg PO HS 05/11/16 Phentermine HCl [Adipex-P] 37.5 mg PO DAILY 12/24/18 Gabapentin [Neurontin] 400 mg PO TID #90 cap 02/18/19 HYDROcodone/APAP 7.5-325MG [[place] 7.5-325] 1 tab PO Q8H PRN 30 Days #90 tab 02/18/19 HYDROcodone/APAP 7.5-325MG [[place] 7.5-325] 1 tab PO Q8HR PRN #90 tab 02/18/19 Ibuprofen [Motrin] 800 mg PO Q8HR PRN #90 tab 02/18/19 tiZANidine [Zanaflex] 4 mg PO Q12HR PRN #60 tab 02/18/19 Controlled Substance Measures - Controlled Substance Measures Is patient prescribed a controlled substance at discharge?: Yes When asked, does pt state using other controlled substances?: No If prescribed controlled substance>3 days was MAPS reviewed?: Yes If Rx opioid, was Start Talking consent form obtained?: Yes If opioid is for acute pain is fill amount 7 days or less?: No Was information provided regarding opioid addiction?: Yes
== END | disposition home or self-care (01) ==
LOC: PNWHC3 12:44
PROVIDERS: ATTEND Specialist
DX: M50.10 Cervical disc disorder with radiculopathy, unspecified cervical region (principal); M47.816 Spondylosis without myelopathy or radiculopathy, lumbar region; M46.96 Unspecified inflammatory spondylopathy, lumbar region; Z79.1 Long term (current) use of non-steroidal anti-inflammatories (NSAID); Z79.891 Long term (current) use of opiate analgesic; Z79.899 Other long term (current) drug therapy
CPT/HCPCS: 99211

== ENCOUNTER 2019-03-13 08:01 | Day surgery (SDC) | payer BC ==
[2019-03-11 14:54] VITALS: BMI 30.4
[~2019-03-13 08:01] MED LIST changes: -LIDOCAINE 1% 20 ML VIAL (10MG/ML) FOR IV START INTRADERMA PRN
[2019-03-13 08:23] VITALS: RESP 16; TEMP 97.3
[2019-03-13] MEDS ORDERED: LIDOCAINE 1% 20 ML VIAL (10MG/ML) FOR IV START INTRADERMA ONE (08:27)
--- NOTE | 2019-03-13 08:57 | P.PCN ---
Date of Procedure: 03/13/19 Procedure(s) Performed: PREOPERATIVE DIAGNOSIS: Cervical Spondylosis with Facet Arthropathy.without myelopathy POSTOPERATIVE DIAGNOSIS: Cervical Spondylosis, Facet Arthropathy. Without myelopathy PROCEDURES: [Bilateral ] Diagnostic C4, C5, C6 medial branch blocks for facets C45 and C5-6, with fluoroscopic guidance ANESTHESIA: Local with 1% lidocaine; IV sedation with Versed, sedation time 18 minutes Fluoroscopy was used for the procedure and images were saved in the radiology portion of the chart. EBL: Minimal PROCEDURE INDICATION: The patient with neck pain secondary to cervical arthropathy unresponsive to more conservative treatments. PROCEDURE DESCRIPTION / TECHNIQUE: The patient was seen and identified in the preoperative area. Risks, benefits, complications, and alternatives were discussed with the patient, the patient agreed to proceed with the procedure and signed the consent. IV was started. Vital signs remained stable throughout the procedure. Patient was taken to the OR and time out was completed. The patient was placed in the prone position on the procedure table. A pillow was placed under the patients chest to increase the cervical interlaminar space. The cervical area was prepped and draped in the usual sterile fashion. A timeout was performed. Vital signs were closely monitored during the procedure. Conscious sedation was used during the procedure to decrease patients anxiety. Using cross-table lateral fluoroscopy,and the lateral approach to place needles, the centroid of the trapezoid of the first level was identified, marked, and localized with 1% lidocaine 0.2 ml at each level for skin and subcutaneous infiltration . Subsequently, a 25 G 3.5" Quinke spinal needle was advanced guided by fluoroscopy to the centroid of the trapezoid . [place] tip position was confirmed using lateral fluoroscopy.0.2 mL of Isovue-200 was injected at each level, revealing no intravascular uptake. Subsequently, 0.5 mL of 4% lidocaine was injected at each level. COMPLICATIONS: No acute complications. DISPOSITION / PLANS: The patient was placed in a supine position and transferred to the recovery area in a stable condition for observation and was discharged from the recovery room after meeting discharge criteria. Home discharge instructions given to the patient by the staff. The patient will follow up for repeat procedure in 2 weeks.
[2019-03-13 09:04] VITALS: PULSE 71
--- NOTE | 2019-03-13 09:10 | FL ---
EXAMINATION TYPE: FL guided pain mgmt statistic DATE OF EXAM: 03/13/2019 CLINICAL HISTORY: Neck pain. TECHNIQUE: Fluoroscopy. COMPARISON: None. FINDINGS: Fluoroscopic guidance was provided during neck pain relief procedure performed by Dr. Dalton . A total of 12 seconds of fluoroscopic time was utilized during the procedure and two spot images a re acquired. Images acquired shows needle localization at several levels in the cervical spine. IMPRESSION: As Above.
[2019-03-13 09:35] VITALS: BP 109/77
[2019-03-13] MEDS ORDERED: IV FLUID CONTINUATION 1,000 ML IV ONE (09:35)
== END 2019-03-13 10:01 | disposition home or self-care (01) ==
LOC: ORPAIN 08:01
PROVIDERS: ATTEND Anesthesiology
DX: G89.29 Other chronic pain (principal); M50.10 Cervical disc disorder with radiculopathy, unspecified cervical region; M47.22 Other spondylosis with radiculopathy, cervical region; M48.02 Spinal stenosis, cervical region; M47.816 Spondylosis without myelopathy or radiculopathy, lumbar region
CPT/HCPCS: 64490; 64491; J2250; Q9966; 99152

== ENCOUNTER 2019-04-10 07:50 | Day surgery (SDC) | payer BC ==
[2019-04-08 11:10] VITALS: BMI 30.1
[~2019-04-10 07:50] MED LIST changes: +BUPIVACAINE (PF) 0.5% 30 ML VIAL ONE; +IOPAMIDOL M200 10 ML VIAL ONE; +MIDAZOLAM 2 MG/2 ML VIAL ONE
[2019-04-10 08:26] VITALS: RESP 16; TEMP 98.1
--- NOTE | 2019-04-10 09:45 | P.PCN ---
Date of Procedure: 04/10/19 Procedure(s) Performed: PREOPERATIVE DIAGNOSIS: Cervical Spondylosis with Facet Arthropathy.without myelopathy POSTOPERATIVE DIAGNOSIS: Cervical Spondylosis, Facet Arthropathy. Without myelopathy PROCEDURES: [Bilateral ] Diagnostic C4, C5, C6 medial branch blocks for facets C45 and C5-6, with fluoroscopic guidance ANESTHESIA: Local with 1% lidocaine; IV sedation with Versed 2mg, sedation time 18 minutes Fluoroscopy was used for the procedure and images were saved in the radiology portion of the chart. EBL: Minimal PROCEDURE INDICATION: The patient with neck pain secondary to cervical arthropathy unresponsive to more conservative treatments. PROCEDURE DESCRIPTION / TECHNIQUE: The patient was seen and identified in the preoperative area. Risks, benefits, complications, and alternatives were discussed with the patient, the patient agreed to proceed with the procedure and signed the consent. IV was started. Vital signs remained stable throughout the procedure. Patient was taken to the OR and time out was completed. The patient was placed in the prone position on the procedure table. A pillow was placed under the patients chest to increase the cervical interlaminar space. The cervical area was prepped and draped in the usual sterile fashion. A timeout was performed. Vital signs were closely monitored during the procedure. Conscious sedation was used during the procedure to decrease patients anxiety. Using cross-table lateral fluoroscopy,and the lateral approach to place needles, the centroid of the trapezoid of the first level was identified, marked, and localized with 1% lidocaine 0.2 ml at each level for skin and subcutaneous infiltration . Subsequently, a 25 G 3.5" Quinke spinal needle was advanced guided by fluoroscopy to the centroid of the trapezoid . [place] tip position was confirmed using lateral fluoroscopy.0.2 mL of Isovue-200 was injected at each level, revealing no intravascular uptake. Subsequently, 0.5 mL of ropivacaine 0.5% was injected at each level. COMPLICATIONS: No acute complications. DISPOSITION / PLANS: The patient was placed in a supine position and transferred to the recovery area in a stable condition for observation and was discharged from the recovery room after meeting discharge criteria. Home discharge instructions given to the patient by the staff. The patient will follow up for in clinic in 2 weeks.
[2019-04-10] MEDS ORDERED: IV FLUID CONTINUATION 1,000 ML IV ONE (09:58)
--- NOTE | 2019-04-10 10:02 | FL ---
EXAMINATION TYPE: FL guided pain mgmt statistic DATE OF EXAM: 04/10/2019 FLUOROSCOPY Fluoroscopy time of 6 seconds was used during bilateral cervical facet blocks. 2 image/s document/s the procedure.
[2019-04-10 10:11] VITALS: BP 111/80; PULSE 78
== END 2019-04-10 10:28 | disposition home or self-care (01) ==
LOC: ORPAIN 07:50
PROVIDERS: ATTEND Anesthesiology
DX: M47.812 Spondylosis without myelopathy or radiculopathy, cervical region (principal)
CPT/HCPCS: 64490; 64491; J2250; Q9966; 99152

== ENCOUNTER → 2019-04-15 | Outpatient (CLI) | payer BC ==
[2019-04-15 13:12] VITALS: BP 112/80; PULSE 80; RESP 18
--- NOTE | 2019-04-15 14:46 | P.PAINPG ---
Subjective Progress Note Date: 04/15/19 The follow-up visit for this 54 years old female with a chronic history of severe neck pain with radiation to the upper extremity, she is diagnosed with cervical radiculopathy and cervical spondylosis , cervical foraminal stenosis, status post diagnostic medial branch block cervical area C4, C5, C6 2 and she reported that her pain was 8/10 dropped to 1-2/10 after each block, the neck pain increases with any neck movement or hyperextension of the neck, she denies any motor or sensory deficit, and she reported that the neck and radiated to the shoulder blade bilaterally that is more severe on the left side, she had no fever or night sweats. She denies any change in the bowel movement or urination and she is currently on [place] 7.5/325 every 8 hours Motrin 800 mg 3 times a day when necessary and Zanaflex 4 mg daily at bedtime and Neurontin 400 mg 3 times a day, she denies any side effects of the medication she denies any excessive drowsiness or sleepiness and shape of the current medication is not helping enough to control her pain Objective - Vital Signs Vital signs: Vital Signs Temp Pulse 80 04/15/19 13:01 Resp 18 04/15/19 13:01 BP 112/80 04/15/19 13:01 Pulse Ox 97 04/15/19 13:01 - Exam Physical Examinations : -Constitutiona : Cooperative , not in acute distress . -HEENT : nech : supple , no Lymphadenopathy , normal thyroid size . : eyes : no ptosis , no icterus, no photophobia . - neurologic : Cranial nerve II to XII intact , no focal neurological deffecit . -psychatric : alert , oriented X 3 , appropriate affect , intact judgment and insight . -Lymphatic : no Lymphadenopathy . - musculoskeltal : Cervical Spine motor stregnth in the deltoid and biceps, normal right side , normal Left side motor stregnth biceps and the wrist extensors normal right side ,normal left side . motor stregnth in the triceps muscle . normal Right side , normal Left side deep tendon reflexes normal at the biceps , normal at Brachioradialis , normal at triceps. cervical facet loading test: Positive Bilaterally Spurling test positive bilaterally. Neck distraction test positive bilaterally. Emily sign positive bilaterally. Lumber spine moter stegnth lower extremities ,thigh and legs 5/5 Right side , 5/5 Left side Assessment and Plan Plan: Assessment and plan= Cervical radiculopathy cervical degenerative disc disease , lumbar spondylosis with lumbar facet arthropathy . Patient had positive results after diagnostic medial branch block cervical area(she had more than 75% improvement in her neck pain after each block ) chronic and current use of high-risk medication (opioids) Patient denies any side effects of the current pain medication and the current treatment/medication helping the patient to do activity of daily living , Diagnoses, prognosis, treatment options, including but not limited to physi lashanda therapy, medication management, interventional therapies, and surgery, were discussed with the patient All the questions answered The narcotic consent was signed and patient agreed and understood the side effects and complications of opioid treatment. Patient signed the narcotic agreement, and was orally counseled, not to overuse, not to abuse, not to Divert , not tp sell pain medication, and to take it as prescribed only, Patient was counseled not to drive or operate heavy equipment while using narcotic medication, and advised not to use alcohol or any Illicit drugs while using the narcotis. understanding that lack of compliance with any of the above instructions, will likely to cause discharge from, the pain service, not to renew his narcotic prescriptions MAPS Reviwed and it was apropriate . Medication managements= patient will be given prescription refills for [place] 7.5/325 every 8 hours dispense 90 with 1 refill Motrin 800 mg 3 times a day dispense 90 with 1 refill and will increase Zanaflex 4 mg twice a day and continue Neurontin 400 mg 3 times a day dispense 90 with 1 refill. Interventions patient could benefit from radiofrequency thermocoagulation of cervical medial branch blocks C4 , C5 and C6 will do the right side first Time with Patient: Less than 30 PQRS Measure Charge Sheet Measure #130: Documentation of Current Meds in Medical Chart: Patient's medications documented in chart Measure #226: Tobacco Use: Screen & Cessation Intervention: Pt not a tobacco user Measure #111: Pneumonia Vaccination: Pneumococcal vaccine administered or previously received Measure #47: Advance Care Plan: Advance care planning discussed & documented, pt chose/unable to give Measure #412: Opioid Treatment Agreement: Documented signed opioid trtmnt agreemnt min once during opioid trtmnt Measure #408: Opioid Therapy Follow-up Evaluation: Patient had f/u eval minimum every 3 months during opioid therapy Measure #317: Preventitive Care & Scrn High Bld Press & F/U: Normal blood pressure, f/u not required Measure #128: Body Mass Index (BMI) Screening & Follow-up: BMI documented ABOVE normal parameters - f/u documented Measure #131: Pain Assessment & Follow-up: Pain positive & plan documented, Follow-up scheduled Measure #431: Unhealthy Alcohol Use Preventative Care & Scrn: Patient not identified as an unhealthy alcohol user PQRS Narrative: Smoking Status Never smoker Narcotic Agreement Date Signed 07/04/18 Blood Pressure 112/80 Pain Intensity [Neck] 5 Scale Used Numeric (1 - 10) Hx Alcohol Use (MH) No Home Medications: Ambulatory Orders buPROPion HCL [Wellbutrin XL] 300 mg PO QAM 03/31/16 lamoTRIgine [LaMICtal] 400 mg PO QAM 03/31/16 traZODone HCL [Desyrel] 100 mg PO HS 05/11/16 tiZANidine [Zanaflex] 4 mg PO Q12HR PRN #60 tab 02/18/19 Gabapentin [Neurontin] 400 mg PO TID #90 cap 04/15/19 HYDROcodone/APAP 7.5-325MG [[place] 7.5-325] 1 tab PO Q8H PRN 30 Days #90 tab 04/15/19 HYDROcodone/APAP 7.5-325MG [[place] 7.5-325] 1 tab PO Q8H PRN 30 Days #90 tab 04/15/19 Ibuprofen [Motrin] 800 mg PO Q8HR PRN #90 tab 04/15/19 Controlled Substance Measures - Controlled Substance Measures Is patient prescribed a controlled substance at discharge?: Yes When asked, does pt state using other controlled substances?: No If prescribed controlled substance>3 days was MAPS reviewed?: Yes If Rx opioid, was Start Talking consent form obtained?: Yes If opioid is for acute pain is fill amount 7 days or less?: No Was information provided regarding opioid addiction?: Yes
== END | disposition home or self-care (01) ==
LOC: PNWHC3 12:17
PROVIDERS: ATTEND Specialist
DX: G89.29 Other chronic pain (principal); M50.10 Cervical disc disorder with radiculopathy, unspecified cervical region; M47.22 Other spondylosis with radiculopathy, cervical region; M46.92 Unspecified inflammatory spondylopathy, cervical region; Z79.899 Other long term (current) drug therapy
CPT/HCPCS: 99211

== ENCOUNTER → 2019-04-24 | Day surgery (SDC) | payer BC ==
[2019-04-23 08:32] VITALS: BMI 30.6
[~2019-04-24] MED LIST changes: -BUPIVACAINE (PF) 0.5% 30 ML VIAL ONE; -IOPAMIDOL M200 10 ML VIAL ONE; +LIDOCAINE 1% 20 ML VIAL (10MG/ML) FOR IV START INTRADERMA ONE; +LIDOCAINE 4% (PF) 5 ML AMP ONE; +fentaNYL (PF) 50 MCG/ML 2 ML AMP ONE
[2019-04-24 07:41] VITALS: TEMP 96.6
[2019-04-24 09:51] VITALS: RESP 17
--- NOTE | 2019-04-24 09:53 | FL ---
EXAMINATION TYPE: FL guided pain mgmt statistic DATE OF EXAM: 04/24/2019 CLINICAL HISTORY: Neck pain. TECHNIQUE: Fluoroscopy. COMPARISON: None. FINDINGS: Fluoroscopic guidance was provided during pain relief procedure performed by Dr. Dalton . A total of 11 seconds of fluoroscopic time was utilized during the procedure and 5 spot images are acqu ired. Images acquired shows needle localization at multiple levels in the cervical spine and neck. IMPRESSION: As Above.
[2019-04-24 10:02] VITALS: BP 106/72; PULSE 72
--- NOTE | 2019-04-24 10:25 | P.PCN ---
Date of Procedure: 04/24/19 Procedure(s) Performed: PREOPERATIVE DIAGNOSIS: Cervical spondylosis POSTOPERATIVE DIAGNOSIS: Same PROCEDURES: Radiofrequency thermocoagulation of the C4, C5, C6 medial branches with fluoroscopic guidance on the right side for facets C4-5 and C5-6 SURGEON: Eric Dalton M.D. ANESTHESIA: Moderate sedation with intravenous versed and fentanyl and local infiltration with lidocaine 1% 5 ml , sedation time 28 minutes Fluoroscopy was used for the procedure and fluoroscopic images were saved to the radiology portion of patient's chart. EBL: Minimal PROCEDURE INDICATION: The patient with low back pain secondary to cervical facet arthropathy who had more than 50% relief of pain with previous diagnostic cervical medial branch block. PROCEDURE DESCRIPTION / TECHNIQUE: The patient was seen and identified in the preoperative area. Risks, benefits, complications, including but not limited to risk of infection ,bleeding , allergic reactions to the medications and incomplete pain relief , and alternatives were discussed with the patient, the patient agreed to proceed with the procedure and signed the consent. IV was started. The operative site was marked. Patient was taken to the OR and time out was completed. The patient was placed in the prone position on the procedure table. The cervical area was prepped and draped in the usual sterile fashion. . Vital signs were closely monitored during the procedure .IV sedation was used during the procedure to decrease patients anxiety. Using AP and lateral fluoroscopy, the waist corresponding to the connection between the superior and transverse articular processes of the above-mentioned levels were identified, marked, and localized with 1% lidocaine. Subsequently, an 18 -yi radiofrequency cannula with a 10-mm active tip was advanced guided by fluoroscopy to the midpoint of the centroid on the lateral view of the corresponding cervical vertebral bodies at each site then underwent motor testing at 2.5 Hz and 0 to 3 volt with local stimulation, but no radicular symptoms down the arms. Then the sites underwent radiofrequency thermocoagulation at 80 degrees celsius for 90 seconds after injecting 0.5 ml of PF lidocaine 4%. A second round of radiofrequency ablation was performed after pulling each needle back by 1 mm. Cannulas were removed, the skin was cleansed and bandages were applied. COMPLICATIONS: No acute complications. DISPOSITION / PLANS: The patient was placed in a supine position and transferred to the recovery area in a stable condition for observation and was discharged from the recovery room after meeting discharge criteria. Home discharge instructions given to the patient by the staff. The patient will follow up in clinic in 2-4 weeks.
== END ==
LOC: ORPAIN 07:14
PROVIDERS: ATTEND Anesthesiology
DX: G89.29 Other chronic pain (principal); M47.22 Other spondylosis with radiculopathy, cervical region; M48.02 Spinal stenosis, cervical region; Z79.891 Long term (current) use of opiate analgesic; Z79.1 Long term (current) use of non-steroidal anti-inflammatories (NSAID); Z79.899 Other long term (current) drug therapy
CPT/HCPCS: 64633; 64634; J2001; J2250; J3010; 99152; 99153

== ENCOUNTER 2019-05-22 06:59 | Day surgery (SDC) | payer BC ==
[2019-05-21 10:23] VITALS: BMI 30.1
[~2019-05-22 06:59] MED LIST changes: -LIDOCAINE 1% 20 ML VIAL (10MG/ML) FOR IV START INTRADERMA ONE; -LIDOCAINE 4% (PF) 5 ML AMP ONE; -MIDAZOLAM 2 MG/2 ML VIAL ONE; -fentaNYL (PF) 50 MCG/ML 2 ML AMP ONE
[2019-05-22] MEDS ORDERED: LACTATED RINGERS 1,000 ML IV ONE (07:15)
[2019-05-22 07:16] VITALS: TEMP 97.8
[2019-05-22] MEDS ORDERED: LIDOCAINE 1% 20 ML VIAL (10MG/ML) FOR IV START INTRADERMA ONE (07:22)
[2019-05-22] MEDS ORDERED: MIDAZOLAM 2 MG/2 ML VIAL ONE (08:05)
[2019-05-22] MEDS ORDERED: fentaNYL (PF) 50 MCG/ML 2 ML AMP ONE (08:05)
[2019-05-22] MEDS ORDERED: methylPREDNISolone ACETATE 40 MG/ML 1 ML VIAL ONE (08:05)
[2019-05-22] MEDS ORDERED: ROPIVACAINE 5MG/ML 20ML VIAL ONE (08:05)
--- NOTE | 2019-05-22 08:39 | P.PCN ---
Date of Procedure: 05/22/19 Procedure(s) Performed: PREOPERATIVE DIAGNOSIS: Cervical spondylosis with Facet Arthropathy without myelopathy. POSTOPERATIVE DIAGNOSIS: Cervical spondylosis with Facet Arthropathy without myelopathy. PROCEDURES: Radiofrequency thermocoagulation, left C4, C5, C6 medial branch with Fluroscopy [place](fluoroscopy was available in etiology department ) (to denervate the facet joint at left C4- 5 , C5- 6 ) ANESTHESIA: Local with Ropivacaine 0.5 % , moderate sedation with fentanyl 100 micrograms and Versed 2 mg EBL: Minimal PROCEDURE INDICATION: The patient with neck pain secondary to cervical arthropathy who had more than 50% relief of her pain with previous diagnostic cervical medial branch block. PROCEDURE DESCRIPTION / TECHNIQUE: The patient was seen and identified in the preoperative area. Risks, benefits, complications, and alternatives were discussed with the patient, the patient agreed to proceed with the procedure and signed the consent. IV was started. Vital signs remained stable throughout the procedure. Patient was taken to the OR and time out was completed. The patient was placed in the prone position on the procedure table. A pillow was placed under the patients chest to increase the cervical interlaminar space. The cervical area was prepped and draped in the usual sterile fashion. Critical pause was taken. Vital signs were closely monitored during the procedure. Conscious sedation was used during the procedure to decrease patient s anxiety. Using cross-table lateral fluoroscopy, the centroid of the trapezoid of left C4, C5, and C6 were identified, marked, and localized with 1% lidocaine. Subsequently, a 20 -dz radiofrequency cannula with a 10-mm active tip was advanced guided by fluoroscopy to the centroid of the trapezoid of left C4, C5, and C6 . Needle tip position was confirmed at the centroid of the trapezoids of left C4, C5, and C6 with anteroposterior fluoroscopy. Each site then underwent sensory testing at 50 Hz and 0 to 1 volt and motor testing at 2 Hz and 0 to 3 volt with local stimulation, but no radicular symptoms down the arm. Thereafter the left C4,C5 and C6 sites underwent radiofrequency thermocoagulation at 80 degrees celsius for 90 seconds after injecting 0.5 ml of PF Ropivacaine 0.5 %. After thermocoagulation, 1 ml of the block solution containing Depo-Medrol 40 mg and 3 mL of preservative-free normal saline was injected at the left , C4, C5, and C6 levels after negative aspiration of CSF and blood and with no paresthesias. Cannulas were retracted while injecting lidocaine 1% until the needle is out. Skin was cleansed and bandages were applied. COMPLICATIONS: No acute complications. DISPOSITION / PLANS: The patient was placed in a supine position and transferred to the recovery area in a stable condition for observation and was discharged from the recovery room after meeting discharge criteria. Home discharge instructions given to the patient by the staff. The patient was reexamined prior to discharge. The patient will schedule a follow up in the clinic in 2-4 weeks.
[2019-05-22] MEDS ORDERED: IV FLUID CONTINUATION 1,000 ML IV ONE (08:41)
[2019-05-22 08:44] VITALS: BP 111/78; PULSE 85; RESP 16
--- NOTE | 2019-05-22 09:16 | FL ---
EXAMINATION TYPE: FL guided pain mgmt statistic DATE OF EXAM: 05/22/2019 CLINICAL HISTORY: Neck pain. TECHNIQUE: Fluoroscopy. COMPARISON: None. FINDINGS: Fluoroscopic guidance was provided during pain relief procedure performed by Dr. Abad . A total of 11 seconds of fluoroscopic time was utilized during the procedure and two spot images a re acquired. Images acquired shows needle localization at several levels of the midline in the mid c ervical spine. IMPRESSION: As Above.
== END 2019-05-22 09:08 | disposition home or self-care (01) ==
LOC: ORPAIN 06:59
PROVIDERS: ATTEND Specialist
DX: M47.812 Spondylosis without myelopathy or radiculopathy, cervical region (principal); Z78.0 Asymptomatic menopausal state
CPT/HCPCS: 64633; 64634; J2250; J1030; J3010; J2795; 99152; 99153

== ENCOUNTER → 2019-05-29 | Outpatient (CLI) | payer BC ==
--- NOTE | 2019-05-29 09:41 | CT ---
EXAMINATION TYPE: CT facial bones w con DATE OF EXAM: 05/29/2019 COMPARISON: 02/04/2019 HISTORY: follow up facial nodules. CT DLP: 789.4 mGycm Automated exposure control for dose reduction was used. CONTRAST: CT scan of the facial bones is performed with IV Contrast, patient injected with 100 mL of Isovue 300 . TECHNIQUE: CT scan of the sinuses is performed without contrast, axial images are obtained, coronal r eformatted images are also reviewed. FINDINGS: The paranasal sinuses including the frontal, ethmoid, sphenoid, and maxillary sinuses bila terally are well-aerated without abnormal opacification. The ostiomeatal complex is patent bilateral ly on the coronal images. Nasal septal deviation noted. Visualized portion of mastoid air cells show no abnormal opacification. The globes are intact bilate rally. A nonenlarged lymph node is seen deep to the palpable abnormality measuring 4 mm in short axis on ove rlying the right masseter muscle and stable. The second more cephalad palpable abnormality appears to correspond to the anterior aspect of the elongated parotid gland. No suspicious masses seen deep to the palpable abnormalities A dental artifact obscures portions of the soft tissues of the neck. Submandibular glands and parotid glands demonstrate no evidence of mass. Visualized oropharynx and nasopharynx symmetric. Shotty lymp hadenopathy seen within the carotid space bilaterally measuring short axis less than 1 cm hypertrophi c and degenerative changes of the vertebral column. IMPRESSION: 1. Stable nonenlarged superficial lymph node corresponding the palpable abnormality unchanged from pr ior exam. 2. Additional area marked by the technologist as palpable abnormality corresponds to elongation of th e superficial lobe of the parotid gland with no suspicious mass.
== END | disposition home or self-care (01) ==
LOC: RADCTMAIN 08:38
PROVIDERS: ATTEND Otolaryngology
DX: R59.0 Localized enlarged lymph nodes (principal); R93.89 Abnormal findings on diagnostic imaging of other specified body structures
CPT/HCPCS: 70487; Q9967

== ENCOUNTER → 2019-06-10 | Outpatient (CLI) | payer BC ==
[2019-06-10 10:06] VITALS: BP 124/77; PULSE 87; RESP 16
--- NOTE | 2019-06-10 10:25 | P.PN ---
Subjective Progress Note Date: 06/10/19 This is a 52-year-old lady with history of cervical spondylosis status post cervical medial branch RFA on 4 weeks ago. The patient has pain on the left side of her neck with significant tenderness and small area of numbness. She also has tenderness around the left trapezius muscle. The patient has been using Redfield 7.5 mg twice a day, Flexeril 10 mg twice a day, Neurontin 300 mg 3 times a day, Motrin 800 mg once a day if needed. She also complains of occasional dull headache in the frontal and occipital areas. Patient denies new-onset weakness, bowel/bladder incontinence, or any other signs or symptoms of cauda equina syndrome. There are no signs of acute intoxication, and no indications of medication diversion or overuse. In addition to above, 13-point review of systems is also negative for chest pain, shortness of breath, changes in vision, changes in hearing, new onset weakness, abdominal pain, diarrhea, extreme fatigue, malaise, fever, skin changes, homicidal or suicidal ideation, or bowel or bladder incontinence. Vital Signs: Reviewed in EMR Gen: AAOx3, NAD HEENT: PERRLA,hearing grossly normal Pulm: resp unlabored Heart: Regular Neck: supple, trachea midline Positive tenderness and trigger points in the left trapezius muscle and left cervical paravertebral musculature. Neuro: CN II-XII grossly intact, Imaging: Reviewed in EMR/chart Assessment: Cervical spondylosis without myelopathy Plan: 1. Explanation: Opioid and psychological risk scores were reviewed. Diagnoses, prognoses, and multiple treatment options including but not limited to physical therapy, interventional therapies, adjuvant medical therapies, narcotic medication therapies, and surgery were discussed with the patient and all questions were answered to the patient's satisfaction. 2. Opioid agreement: Signed with the patient and the patient is warned not to use opioids while driving or before driving and not to combine opioids with benzodiazepines or alcohol. 3. Counseling: The patient was counseled extensively on SMOKING CESSATION, BODY MASS INDEX, EXERCISE. Specifically, the patient was instructed regarding the importance of smoking cessation, obesity, and exercise in the context of both chronic pain and overall health. 4. Procedures: The patient may benefit from getting trigger point injection in the left trapezius muscle and left cervical paravertebral musculature however she would rather hold off on this procedure note her concern with the current [place] virus pandemic. 5. Consultations: None 6. Investigations: None 7. Medications: Redfield 7.5 mg #60, and Neurontin 300 mg #90, Flexeril 10 mg #60, Motrin 800 mg #30 with 1 refill. 8. Disposition: Return to clinic in 8 weeks 9. Maps were reviewed and were appropriate. PQRS measures: 1-Patient's medications are documented in the chart. 2-Tobacco use is negative, counseling given 3-Patient has had a pneumococcal vaccine. 4-Advanced care planning discussed, patient unable to give 5-Opioid contract signed with the patient. 6-Pain positive, follow-up visit or procedure scheduled 7-Patient's blood pressure measured and documented within normal limits. The patient will follow up with his primary care physician. 8-Patient's weight was measured, and body mass index ABOVE the normal limits, and counseling was done. Patient instructed to follow up with PCP. 9-Patient WAS NOT identified as an unhealthy alcohol user. Controlled Substance Measures Is patient prescribed a controlled substance at discharge?: Yes When asked, does pt state using other controlled substances?: No If prescribed controlled substance>3 days was MAPS reviewed?: Yes If Rx opioid, was Start Talking consent form obtained?: Yes If opioid is for acute pain is fill amount 7 days or less?: No Was information provided regarding opioid addiction?: Yes Objective - Vital Signs Vital signs: Vital Signs Temp Pulse 87 06/10/19 10:03 Resp 16 06/10/19 10:03 BP 124/77 06/10/19 10:03 Pulse Ox 97 06/10/19 10:03
== END | disposition home or self-care (01) ==
LOC: PNWHC3 09:55
PROVIDERS: ATTEND Anesthesiology
DX: G89.29 Other chronic pain (principal); M47.812 Spondylosis without myelopathy or radiculopathy, cervical region; Z79.1 Long term (current) use of non-steroidal anti-inflammatories (NSAID); Z79.891 Long term (current) use of opiate analgesic; Z79.899 Other long term (current) drug therapy; Z98.890 Other specified postprocedural states
CPT/HCPCS: 99211

== ENCOUNTER → 2019-08-11 | Outpatient (CLI) | payer BC ==
--- NOTE | 2019-08-11 11:52 | P.PAINPG ---
Subjective Progress Note Date: 08/11/19 THIS ENCOUNTER WAS PERFORMED A TELEMEDICINE VISIT VIA SECURE TWO-WAY VIDEO AND AUDIO TO MINIMIZE RISK AND TRANSMISSION OF COVID-19. This is a 54-year-old lady with history of cervical spondylosis. In the past, we have done cervical medial branch RFA, with good results. The patient has been using [place] 7.5 mg twice a day, Flexeril 10 mg twice a day, Neurontin 300 mg 3 times a day, Motrin 800 mg once a day if needed. She reports that flexeril is not helping; other medications are helping control her pain, she denies side effects. Today, pain located in left side of neck, rated as 2-7/10, described as pinching, sharp, spasms. She does have occasioal headaches and numbness in right arm. Denies weakness. Pain worse with activity, lifting, vacuuming, better with rest, medications. In addition to above, 13-point review of systems is also negative for chest pain, shortness of breath, changes in vision, changes in hearing, new onset weakness, abdominal pain, diarrhea, extreme fatigue, malaise, fever, skin changes, homicidal or suicidal ideation, or bowel or bladder incontinence. Physical exam: Constitutional: Healthy appearing, well developed, alert, in no acute distress Psychiatric: Judgement and insight intact, alert and oriented Mood and Affect: mood normal, affect appropriate Head and Face: Inspection: normocephalic atraumatic, extraocular movement intact Respiratory: Breathing non-labored nondyspneic Skin: Head and Neck: skin with no lesions or rash Gait: Able to walk without assistive device MSK: TTP per patient left cervical paraspinals, trapezius, rhomboids. Full ROM C spine Assessment: Cervical spondylosis without myelopathy cervical myofascial pain syndrome Chronic use of high-risk medication including opioids Plan: 1. Opioid agreement: Signed with the patient 2. Procedures: Will schedule left sided trigger point injections to cervical paraspinals, trapezius, rhomboids 3. Medications: [place] 7.5 mg #60, and Neurontin 600 mg #90 (increased from 300mg TID; titration schedule provided), Motrin 800 mg #30 with 1 refill. Flexeril not filled as patient is not getting any benefit 4. Disposition: for above mentioned procedure and in 8 weeks for medication management 5. Maps were reviewed and were appropriate. PQRS Measure Charge Sheet PQRS Narrative: Smoking Status Never smoker Narcotic Agreement Date Signed 07/04/18 Hx Alcohol Use (MH) No Home Medications: Ambulatory Orders buPROPion HCL [Wellbutrin XL] 300 mg PO QAM 03/31/16 lamoTRIgine [LaMICtal] 400 mg PO QAM 03/31/16 traZODone HCL [Desyrel] 100 mg PO HS 05/11/16 Gabapentin [Neurontin] 400 mg PO TID #90 cap 04/15/19 HYDROcodone/APAP 7.5-325MG [[place] 7.5-325] 1 tab PO Q8H PRN 30 Days #90 tab 04/15/19 Ibuprofen [Motrin] 800 mg PO Q8HR PRN #90 tab 04/15/19 Flexeril (Unknown Dose) 1 tab PO BID 05/21/19 Controlled Substance Measures - Controlled Substance Measures Is patient prescribed a controlled substance at discharge?: Yes When asked, does pt state using other controlled substances?: No If prescribed controlled substance>3 days was MAPS reviewed?: Yes If Rx opioid, was Start Talking consent form obtained?: Yes If opioid is for acute pain is fill amount 7 days or less?: No Was information provided regarding opioid addiction?: Yes
== END | disposition home or self-care (01) ==
LOC: PNWHC3 07:42
PROVIDERS: ATTEND Anesthesiology
DX: Z53.9 Procedure and treatment not carried out, unspecified reason (principal)

== ENCOUNTER → 2019-08-29 | Outpatient (CLI) | payer BC | END | disposition home or self-care (01) | LOC: LABWHC1 09:00 | PROVIDERS: ATTEND Family Medicine | DX: Z11.59 Encounter for screening for other viral diseases (principal) ==

== ENCOUNTER 2019-09-11 08:12 | Day surgery (SDC) | payer BC ==
[2019-09-08 11:33] VITALS: BMI 30.2
[2019-09-11] MEDS ORDERED: LIDOCAINE 1% (10MG/ML) FOR IV START INTRADERMA ONE (09:26)
[2019-09-11] MEDS ORDERED: ROPIVACAINE 5MG/ML 20ML VIAL ONE (09:51)
[2019-09-11] MEDS ORDERED: IV FLUID CONTINUATION 1,000 ML IV ONE (10:16)
[2019-09-11 10:35] VITALS: BP 128/80; PULSE 75; RESP 17
--- NOTE | 2019-09-11 10:47 | P.PCN ---
Date of Procedure: 09/11/19 Procedure(s) Performed: Preoperative Diagnosis: myofascial pain syndrome of left cervical paraspinals, trapezius, rhomboids, infraspinatus muscles Postoperative diagnosis: Same Anesthesia: Local Surgeon: Eric Dalton MD Indications for procedure: This is a patient with myofascial pain and palpable trigger points in above- mentioned muscles. The patient consents for an injection after an explanation of risks including but not limited to bleeding and infection, benefits, and alternatives and the patient has signed a consent form indicating understanding of all of them. Description of procedure: After informed consent was obtained the patient's back was sterilely prepped in the usual fashion with ChloraPrep. 15 trigger points were identified via palpation of the indicated muscles and marked sterilely. Each trigger point was injected with a 25-gauge half inch needle, with 1 to 1.5 mL of solution consisting of ropivacaine 0.5%. The patient's vital signs were stable afterwards and the procedure was tolerated well. Patient was discharged home with follow-up instructions.
== END 2019-09-11 10:57 | disposition home or self-care (01) ==
LOC: ORPAIN 08:12
PROVIDERS: ATTEND Anesthesiology
DX: M79.18 Myalgia, other site (principal); Z78.0 Asymptomatic menopausal state
CPT/HCPCS: 20553; J2795

== ENCOUNTER → 2019-10-01 | Outpatient (CLI) | payer BC ==
--- NOTE | 2019-10-02 06:56 | P.PAINPG ---
Subjective Progress Note Date: 10/01/19 The follow-up visit for this 54 years old female with a chronic history of severe neck pain with radiation to the upper extremity, she is diagnosed with cervical radiculopathy and cervical spondylosis , cervical foraminal stenosis, status post RFA medial branch block cervical area C4, C5, C6 , and trigger point injection, depending controlled between interventional pain management and medication management, she continued to have neck pain the neck pain increases with any neck movement or hyperextension of the neck, she denies any motor or sensory deficit, and she reported that the neck and radiated to the shoulder blade bilaterally that is more severe on the left side, she had no fever or night sweats. She denies any change in the bowel movement or urination and she is currently on Garfield 7.5/325 every 8 hours ,Motrin 800 mg 3 times a day when necessary, and Flexeril 10 mg twice a day , and Neurontin 400 mg 3 times a day, she denies any side effects of the medication she denies any excessive drowsiness or sleepiness and shape of the current medication is not helping enough to control her pain Objective - Vital Signs Vital signs: Vital Signs Temp Pulse 82 10/01/19 15:13 Resp 16 10/01/19 15:13 BP 132/90 10/01/19 15:13 Pulse Ox Intake & Output 10/01/19 10/01/19 10/02/19 06:59 18:59 06:59 Weight 81.647 kg - Exam Physical Examinations : -Constitutiona : Cooperative , not in acute distress . -HEENT : nech : supple , no Lymphadenopathy , normal thyroid size . : eyes : no ptosis , no icterus, no photophobia . - neurologic : Cranial nerve II to XII intact , no focal neurological deffecit . -psychatric : alert , oriented X 3 , appropriate affect , intact judgment and insight . -Lymphatic : no Lymphadenopathy . - musculoskeltal : Cervical Spine motor stregnth in the deltoid and biceps, normal right side , normal Left side motor stregnth biceps and the wrist extensors normal right side ,normal left side . motor stregnth in the triceps muscle . normal Right side , normal Left side deep tendon reflexes normal at the biceps , normal at Brachioradialis , normal at triceps. cervical facet loading test= Positive Bilaterally Lumber spine moter stegnth lower extremities ,thigh and legs 5/5 Right side , 5/5 Left side Assessment and Plan Plan: Assessment and plan= chronic neck pain secondary to cervical degenerative disc disease , cervical spondylosis with lumbar facet arthropathy , and myofascial pain syndrome and cervical area. Status post RFA of the medial branch cervical area and trigger point inj ections cervical area chronic and current use of high-risk medication (opioids) Patient denies any side effects of the current pain medication and the current treatment/medication helping the patient to do activity of daily living , Diagnoses, prognosis, treatment options, including but not limited to physical therapy, medication management, interventional therapies, and surgery, were discussed with the patient All the questions answered The narcotic consent was signed and patient agreed and understood the side effects and complications of opioid treatment. Patient signed the narcotic agreement, and was orally counseled, not to overuse, not to abuse, not to Divert , not tp sell pain medication, and to take it as prescribed only, Patient was counseled not to drive or operate heavy equipment while using narcotic medication, and advised not to use alcohol or any Illicit drugs while using the narcotis. understanding that lack of compliance with any of the above instructions, will likely to cause discharge from, the pain service, not to renew his narcotic prescriptions MAPS Reviwed and it was apropriate . Medication managements= patient will be given prescription refills for Neurontin 400 mg 3 times a day, Garfield 7.5/325 every 8 hours, Motrin 800 mg 3 times a day, Flexeril 10 mg twice a note= patient complaining of frequent episodes of headache and I recommend patient to check with her psychiatrist if it's okay to start patient on amitriptyline 25 mg daily at bedtime, patient follow-up with a psychiatrist and she is currently on antidepressant medication Amitriptyline would be adjuvant to help to decrease the frequency of the migraine attack. , Time with Patient: Less than 30 PQRS Measure Charge Sheet Measure #130: Documentation of Current Meds in Medical Chart: Patient's medications documented in chart Measure #226: Tobacco Use: Screen & Cessation Intervention: Pt not a tobacco user Measure #111: Pneumonia Vaccination: Pneumococcal vaccine administered or previously received Measure #47: Advance Care Plan: Advance care planning discussed & documented, pt chose/unable to give Measure #412: Opioid Treatment Agreement: Documented signed opioid trtmnt agreemnt min once during opioid trtmnt Measure #408: Opioid Therapy Follow-up Evaluation: Patient had f/u eval minimum every 3 months during opioid therapy Measure #317: Preventitive Care & Scrn High Bld Press & F/U: Normal blood pressure, f/u not required Measure #128: Body Mass Index (BMI) Screening & Follow-up: BMI documented ABOVE normal parameters - f/u documented Measure #131: Pain Assessment & Follow-up: Pain positive & plan documented, Follow-up scheduled Measure #431: Unhealthy Alcohol Use Preventative Care & Scrn: Patient not identified as an unhealthy alcohol user PQRS Narrative: Smoking Status Never smoker Narcotic Agreement Date Signed 10/01/19 Blood Pressure 132/90 Hx Alcohol Use (MH) No Home Medications: Ambulatory Orders buPROPion HCL [Wellbutrin XL] 300 mg PO QAM 03/31/16 lamoTRIgine [LaMICtal] 400 mg PO QAM 03/31/16 traZODone HCL [Desyrel] 100 mg PO HS 05/11/16 Cyclobenzaprine [Flexeril] 10 mg PO BID #60 tab 10/01/19 Gabapentin [Neurontin] 400 mg PO TID #90 cap 10/01/19 HYDROcodone/APAP 7.5-325MG [Garfield 7.5-325] 1 tab PO Q8H PRN 30 Days #90 tab 10/01/19 HYDROcodone/APAP 7.5-325MG [Garfield 7.5-325] 1 tab PO Q8H PRN 30 Days #90 tab 10/01/19 Ibuprofen [Motrin] 800 mg PO Q8HR PRN #90 tab 10/01/19 Controlled Substance Measures - Controlled Substance Measures Is patient prescribed a controlled substance at discharge?: Yes When asked, does pt state using other controlled substances?: No If prescribed controlled substance>3 days was MAPS reviewed?: Yes If Rx opioid, was Start Talking consent form obtained?: Yes If opioid is for acute pain is fill amount 7 days or less?: No Was information provided regarding opioid addiction?: Yes
[2019-10-03 09:32] VITALS: BP 132/90; PULSE 82; RESP 16
== END | disposition home or self-care (01) ==
LOC: PNWHC3 14:17
PROVIDERS: ATTEND Specialist
DX: M50.30 Other cervical disc degeneration, unspecified cervical region (principal); M47.812 Spondylosis without myelopathy or radiculopathy, cervical region; M46.96 Unspecified inflammatory spondylopathy, lumbar region; M79.18 Myalgia, other site; Z79.899 Other long term (current) drug therapy; Z79.891 Long term (current) use of opiate analgesic
CPT/HCPCS: 80307; 99211; G0482

== ENCOUNTER → 2019-12-08 | Outpatient (CLI) | payer BC ==
[2019-12-08 12:58] VITALS: BP 128/72; PULSE 86; RESP 16; TEMP 98.1
--- NOTE | 2019-12-08 13:15 | P.PN ---
Subjective Progress Note Date: 12/08/19 This is a 54-year-old lady with history of chronic neck and lower back pain. The patient had multiple injections of the cervical and lumbar spines with good response. Lately she's been having pain in the left side of her hip. She takes [place] 7.5 mg 3 times a day and Motrin 800 mg once a day if needed for her pain. The patient is applying for disability. Patient denies new-onset weakness, bowel/bladder incontinence, or any other signs or symptoms of cauda equina syndrome. There are no signs of acute intoxication, and no indications of medication diversion or overuse. In addition to above, 13-point review of systems is also negative for chest pain, shortness of breath, changes in vision, changes in hearing, new onset weakness, abdominal pain, diarrhea, extreme fatigue, malaise, fever, skin changes, homicidal or suicidal ideation, or bowel or bladder incontinence. Vital Signs: Reviewed in EMR Gen: AAOx3, NAD HEENT: PERRLA,hearing grossly normal Pulm: resp unlabored Heart: Regular Neck: supple, trachea midline Neuro exam of the lower extremities: Normal muscle strength in the lower extremities Positive tenderness in the lumbar paravertebral musculature and also in the cervical paravertebral musculature Positive tenderness around the left greater trochanter Positive tenderness around the left sacroiliac joint Neuro: CN II-XII grossly intact, Imaging: Reviewed in EMR/chart Assessment: Obesity Cervical and lumbar spondylosis without myelopathy Left greater trochanter bursitis Possible left sacroiliitis Opioid dependence Plan: 1. Explanation: Opioid and psychological risk scores were reviewed. Diagnoses, prognoses, and multiple treatment options including but not limited to physical therapy, interventional therapies, adjuvant medical therapies, narcotic medication therapies, and surgery were discussed with the patient and all questions were answered to the patient's satisfaction. 2. Opioid agreement: Signed with the patient and the patient is warned not to use opioids while driving or before driving and not to combine opioids with benzodiazepines or alcohol. 3. Counseling: The patient was counseled extensively on SMOKING CESSATION, BODY MASS INDEX, EXERCISE. Specifically, the patient was instructed regarding the importance of smoking cessation, obesity, and exercise in the context of both chronic pain and overall health. 4. Procedures: Schedule for left greater trochanter bursa steroid injection 5. Consultations: None 6. Investigations: None 7. Medications: Narco 7.5 mg 3 times a day #90 pills with no refills. Neurontin 400 mg 3 times a day. 8. Disposition: Return to clinic in 4 weeks 9. Maps were reviewed and were appropriate. Controlled Substance Measures Is patient prescribed a controlled substance at discharge?: Yes When asked, does pt state using other controlled substances?: No If prescribed controlled substance>3 days was MAPS reviewed?: Yes If Rx opioid, was Start Talking consent form obtained?: Yes If opioid is for acute pain is fill amount 7 days or less?: No Was information provided regarding opioid addiction?: Yes Objective - Vital Signs Vital signs: Vital Signs Temp 98.1 F 12/08/19 12:48 Pulse 86 12/08/19 12:48 Resp 16 12/08/19 12:48 BP 128/72 12/08/19 12:48 Pulse Ox 99 12/08/19 12:48 Intake & Output 12/07/19 12/08/19 12/08/19 18:59 06:59 18:59 Weight 78.925 kg
== END | disposition home or self-care (01) ==
LOC: PNWHC3 12:33
PROVIDERS: ATTEND Anesthesiology
DX: M47.812 Spondylosis without myelopathy or radiculopathy, cervical region (principal); M47.816 Spondylosis without myelopathy or radiculopathy, lumbar region; M70.62 Trochanteric bursitis, left hip; E66.9 Obesity, unspecified; F11.20 Opioid dependence, uncomplicated; Z79.891 Long term (current) use of opiate analgesic; Z79.899 Other long term (current) drug therapy
CPT/HCPCS: 99211

== ENCOUNTER → 2020-02-02 | Outpatient (CLI) | payer BC ==
[2020-02-02 10:49] VITALS: BP 129/88; PULSE 72; RESP 16; TEMP 98
--- NOTE | 2020-02-02 11:38 | P.PN ---
Subjective Progress Note Date: 02/02/20 The follow-up visit for this 54 years old female with a chronic history of severe neck pain with radiation to the upper extremity, she is diagnosed with cervical radiculopathy and cervical spondylosis , cervical foraminal stenosis, status post RFA medial branch block cervical area C4, C5, C6 , and trigger point injection, depending controlled between interventional pain management and medication management, she continued to have neck pain the neck pain increases with any neck movement or hyperextension of the neck, she denies any motor or sensory deficit, and she reported that the neck and radiated to the shoulder blade bilaterally that is more severe on the left side, she had no fever or night sweats. She denies any change in the bowel movement or urination and she is currently on [place] 7.5/325 every 8 hours ,Motrin 800 mg 3 times a day when necessary, and Flexeril 10 mg twice a day , and Neurontin 400 mg 3 times a day, she denies any side effects of the medication she denies any excessive drowsiness or sleepiness and shape of the current medication is not helping enough to control her pain Objective - Vital Signs Vital signs: Vital Signs Temp 98 F 02/02/20 10:46 Pulse 72 02/02/20 10:46 Resp 16 02/02/20 10:46 BP 129/88 02/02/20 10:46 Pulse Ox 97 02/02/20 10:46 - Exam -Constitutiona : Cooperative , not in acute distress . -HEENT : nech : supple , no Lymphadenopathy , normal thyroid size . : eyes : no ptosis , no icterus, no photophobia . - neurologic : Cranial nerve II to XII intact , no focal neurological deffecit . -psychatric : alert , oriented X 3 , appropriate affect , intact judgment and insight . -Lymphatic : no Lymphadenopathy . - musculoskeltal : Cervical Spine motor stregnth in the deltoid and biceps, normal right side , normal Left side motor stregnth biceps and the wrist extensors normal right side ,normal left side . motor stregnth in the triceps muscle . normal Right side , normal Left side deep tendon reflexes normal at the biceps , normal at Brachioradialis , normal at triceps. cervical facet loading test= Positive Bilaterally Lumber spine moter stegnth lower extremities ,thigh and legs 5/5 Right side , 5/5 Left side Assessment and Plan Plan: Assessment and plan= chronic neck pain secondary to cervical degenerative disc disease , cervical spondylosis with lumbar facet arthropathy , and myofascial pain syndrome and cervical area. Status post RFA of the medial branch cervical area and trigger point injections cervical area chronic and current use of high-risk medication (opioids) Patient denies any side effects of the current pain medication and the current treatment/medication helping the patient to do activity of daily living , Diagnoses, prognosis, treatment options, including but not limited to physical therapy, medication management, interventional therapies, and surgery, were discussed with the patient All the questions answered The narcotic consent was signed and patient agreed and understood the side effects and complications of opioid treatment. Patient signed the narcotic agreement, and was orally counseled, not to ove ruse, not to abuse, not to Divert , not tp sell pain medication, and to take it as prescribed only, Patient was counseled not to drive or operate heavy equipment while using narcotic medication, and advised not to use alcohol or any Illicit drugs while using the narcotis. understanding that lack of compliance with any of the above instructions, will likely to cause discharge from, the pain service, not to renew his narcotic prescriptions MAPS Reviwed and it was apropriate . Urine drug screen checked was appropriate Medication managements= patient will be given prescription refills for Neurontin 400 mg 3 times a day dispense 90 with 1 refill, [place] 7.5/325 every 8 hours, dispense 90 with 1 refill Patient will follow up in the pain clinic in 2 months Time with Patient: Less than 30 PQRS Measure Charge Sheet Measure #130: Documentation of Current Meds in Medical Chart: Patient's medications documented in chart Measure #226: Tobacco Use: Screen & Cessation Intervention: Pt not a tobacco user Measure #111: Pneumonia Vaccination: Pneumococcal vaccine administered or previously received Measure #47: Advance Care Plan: Advance care planning discussed & documented, pt chose/unable to give Measure #412: Opioid Treatment Agreement: Documented signed opioid trtmnt agreemnt min once during opioid trtmnt Measure #408: Opioid Therapy Follow-up Evaluation: Patient had f/u eval minimum every 3 months during opioid therapy Measure #317: Preventitive Care & Scrn High Bld Press & F/U: Normal blood pressure, f/u not required Measure #128: Body Mass Index (BMI) Screening & Follow-up: BMI documented ABOVE normal parameters - f/u documented Measure #131: Pain Assessment & Follow-up: Pain positive & plan documented, Follow-up scheduled Measure #431: Unhealthy Alcohol Use Preventative Care & Scrn: Patient not identified as an unhealthy alcohol use Time with Patient: Less than 30
== END | disposition home or self-care (01) ==
LOC: PNWHC3 10:04
PROVIDERS: ATTEND Specialist
DX: M50.30 Other cervical disc degeneration, unspecified cervical region (principal); M47.812 Spondylosis without myelopathy or radiculopathy, cervical region; M79.18 Myalgia, other site; Z79.891 Long term (current) use of opiate analgesic; Z79.899 Other long term (current) drug therapy
CPT/HCPCS: 99211

== ENCOUNTER → 2020-03-29 | Outpatient (CLI) | payer BC ==
[2020-03-29 10:35] VITALS: BP 118/80; PULSE 69; RESP 18; TEMP 98
--- NOTE | 2020-03-29 10:43 | P.PN ---
Subjective Progress Note Date: 03/29/20 This is a 55-year-old lady with history of chronic neck pain with recent exacerbation and radiation to the right arm down to the right hand mostly with the medial 2 fingers with numbness and tingling. The patient received multiple injections on her neck previously including cervical epidural and cervical medial branch RFA. She also takes [place] and Neurontin for her pain. He also feels pain in between her shoulders on the right side of her spine in the upper thoracic area and lower cervical paravertebral musculature. Patient denies new-onset weakness, bowel/bladder incontinence, or any other signs or symptoms of cauda equina syndrome. There are no signs of acute intoxication, and no indications of medication diversion or overuse. In addition to above, 13-point review of systems is also negative for chest pain, shortness of breath, changes in vision, changes in hearing, new onset weakness, abdominal pain, diarrhea, extreme fatigue, malaise, fever, skin changes, homicidal or suicidal ideation, or bowel or bladder incontinence. Vital Signs: Reviewed in EMR Gen: AAOx3, NAD HEENT: PERRLA,hearing grossly normal Pulm: resp unlabored Neck: supple, trachea midline Neuro exam of the upper extremities: Shows absent triceps reflex bilaterally, the rest of the reflexes are normal. 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 Straight leg raising test: Cesar's test: Range of motion of the lumbar spine: Facet loading test: Tenderness in the paravertebral musculature: Positive on the upper thoracic and lower cervical paravertebral musculature on the right side of the spine Neuro: CN II-XII grossly intact, Imaging: Reviewed in EMR/chart Assessment: Right cervical radiculopathy Cervical spondylosis without myelopathy Myofascial pain Opioid dependence Plan: 1. Explanation: Opioid and psychological risk scores were reviewed. Diagnoses, prognoses, and multiple treatment options including but not limited to physical therapy, interventional therapies, adjuvant medical therapies, narcotic medication therapies, and surgery were discussed with the patient and all questions were answered to the patient's satisfaction. 2. Opioid agreement: Signed with the patient and the patient is warned not to use opioids while driving or before driving and not to combine opioids with benzodiazepines or alcohol. 3. Counseling: The patient was counseled extensively on SMOKING CESSATION, BODY MASS INDEX, EXERCISE. Specifically, the patient was instructed regarding the importance of smoking cessation, obesity, and exercise in the context of both chronic pain and overall health. 4. Procedures: Schedule for cervical epidural steroid injection under fluoroscopic guidance at the C7-T1 level in the right paramedian approach. And also for trigger point injection in the upper thoracic and lower cervical paravertebral musculature on the right side of the spine. 5. Consultations: None 6. Investigations: UDS today 7. Medications: Continue with [place] 7.5 mg 3 times a day and Neurontin 400 mg 3 times a day plus Flexeril 10 mg twice a day 8. Disposition: Written to double vision procedure as soon as possible and to the pain clinic in 8 weeks. 9. Maps were reviewed and were appropriate. Controlled Substance Measures Is patient prescribed a controlled substance at discharge?: Yes When asked, does pt state using other controlled substances?: No If prescribed controlled substance>3 days was MAPS reviewed?: Yes If Rx opioid, was Start Talking consent form obtained?: Yes If opioid is for acute pain is fill amount 7 days or less?: No Was information provided regarding opioid addiction?: Yes Objective - Vital Signs Vital signs: Vital Signs Temp 98.0 F 03/29/20 10:32 Pulse 69 03/29/20 10:32 Resp 18 03/29/20 10:32 BP 118/80 03/29/20 10:32 Pulse Ox 97 03/29/20 10:32
== END | disposition home or self-care (01) ==
LOC: PNWHC3 10:16
PROVIDERS: ATTEND Anesthesiology
DX: M47.22 Other spondylosis with radiculopathy, cervical region (principal); M79.18 Myalgia, other site; F11.20 Opioid dependence, uncomplicated
CPT/HCPCS: 80307; 99212; G0482

== ENCOUNTER 2020-04-20 08:17 | Day surgery (SDC) | payer BC ==
[2020-04-16 11:06] VITALS: BMI 30.9
[2020-04-20 08:47] VITALS: TEMP 98
[2020-04-20] MEDS ORDERED: LIDOCAINE 1% (10MG/ML) FOR IV START INTRADERMA ONE (08:47)
[2020-04-20] MEDS ORDERED: LACTATED RINGERS 1,000 ML IV ONE (08:47)
[2020-04-20] MEDS ORDERED: ROPIVACAINE 5MG/ML 20ML VIAL ONE (09:12)
[2020-04-20] MEDS ORDERED: IOPAMIDOL M200 10 ML VIAL ONE (09:12)
[2020-04-20] MEDS ORDERED: fentaNYL (PF) 50 MCG/ML 2 ML AMP ONE (09:12)
[2020-04-20] MEDS ORDERED: DEXAMETHASONE SOD PHOSPHATE 10 MG/ML 1 ML VIAL ONE (09:12)
[2020-04-20] MEDS ORDERED: MIDAZOLAM 2 MG/2 ML VIAL ONE (09:12)
--- NOTE | 2020-04-20 09:33 | P.PCN ---
Date of Procedure: 04/20/20 Procedure(s) Performed: . PROCEDURE 1. Cervical epidural steroid injection under fluoroscopic guidance, C7-T1 (fluoroscopy images available in the radiology department ) 2. Cervical epidurogram. 3. Trigger point injection cervical and thoracic paraspinal muscles, total of 5 trigger point injected 3 in the right side cervical paraspinal muscles and 2 in the thoracic paraspinal muscles PREOPERATIVE DIAGNOSIS:1-Cervical radiculopathy.2-cervical spondylosis with cervical Facet arthropathy without myelopathy.3-myofascial pain syndrome and cervical and thoracic area POSTOPERATIVE DIAGNOSIS: : MS preop diagnosis ANESTHESIA: Local anesthesia with lidocaine 1 % , and moderate sedation, with Versed 2 mg and Fentanyl 100 mcg. EBL 0 PROCEDURE INDICATION: The patient with neck pain and radiculitis unresponsive to conservative treatment consents for procedure. PROCEDURE DESCRIPTION / TECHNIQUE: The patient was seen and identified in the preoperative area. Risks, benefits, complications, including but not limited to infections ,bleeding , allergic reactions to the medications ,and not complete pain releife, and alternatives were discussed with the patient, the patient agreed to proceed with the procedure and signed the consent. Patient was taken to the OR and time out was completed. The patient was placed in the prone position on the procedure table. A pillow was placed under the patients chest to increase the cervical interlaminar space. The cervical area was prepped and draped in the usual sterile fashion. Vital signs were closely monitored during the procedure. Conscious sedation was used during the procedure to decrease patients anxiety. Using anterior-posterior fluoroscopy, the C7-T1 interlaminar space was identified and the skin over this site was marked and then infiltrated with 1% lidocaine subcutaneously. Subsequently, a 20-gauge 3-1/2-inch Tuohy epidural nee dle was inserted and advanced toward the epidural space by means of the ``hanging-drop technique and guided by AP and lateral fluoroscopy. The correct needle position in the epidural space was verified with the injection of 2 mL of the water soluble contrast dye [id number]-[id number] and observing an excellent epidurogram with the epidural spread of the dye, after negative aspiration for blood and CSF and in the absence of paresthesias. Again after negative aspiration, mixture containing 20 mg Dexamethasone and 2 ml of preservative- free normal saline injected and a washout of epidurogram was seen. Needle was withdrawn intact. Then a trigger point injection done sterile technique, after the cervical and thoracic area prepped with Betadine 3, and each of the tailbone that is identified in the preop holding area 3 in the right side cervical paraspinal muscles and 2 in the thoracic paraspinal muscles each one of them injected with bupivacaine 0.5% 2 mL injected at each trigger point using 25-gauge needle injection done after negative aspiration ,and there was no paresthesia during the injection ,patient tolerated the procedure well without any complications Complications= none. Disposition= patient was placed in supine position and transferred to the recovery room area in stable condition and there was no evidence of upper or lower extremity motor or sensory deficit after the procedure patient was discharged from recovery room after discharge criteria met and home discharge instructions was given by the staff and patient will follow with the pain clinic in 2-4 weeks
[2020-04-20 09:35] VITALS: RESP 16
[2020-04-20 09:48] VITALS: BP 115/79; PULSE 81
[2020-04-20] MEDS ORDERED: IV FLUID CONTINUATION 1,000 ML IV ONE (09:48)
--- NOTE | 2020-04-20 10:06 | FL ---
EXAMINATION TYPE: FL guided pain mgmt statistic DATE OF EXAM: 04/20/2020 FLUOROSCOPY Fluoroscopy time of 2 seconds seconds was used during a cervical epidural steroid injection for pain services. 1 image/s document/s the procedure.
== END 2020-04-20 10:09 | disposition home or self-care (01) ==
LOC: ORPAIN 08:17
PROVIDERS: ATTEND Specialist
DX: M47.22 Other spondylosis with radiculopathy, cervical region (principal); M79.18 Myalgia, other site; M50.10 Cervical disc disorder with radiculopathy, unspecified cervical region; Z78.0 Asymptomatic menopausal state
CPT/HCPCS: 20553; 62321; J2250; J1100; J3010; Q9966; J2795

== ENCOUNTER → 2020-05-24 | Outpatient (CLI) | payer BC ==
[2020-05-24 10:31] VITALS: BP 103/77; PULSE 86; RESP 16; TEMP 98.1
--- NOTE | 2020-05-24 11:13 | P.PAINPG ---
Subjective Progress Note Date: 05/24/20 This is a 55-year-old lady with history of chronic neck pain with recent exacerbation and radiation to the right arm down to the right hand mostly with the medial 2 fingers with numbness and tingling. The patient received multiple injections on her neck previously including cervical epidural and cervical medial branch RFA. She also takes [place] and Neurontin for her pain. He also feels pain in between her shoulders on the right side of her spine in the upper thoracic area and lower cervical paravertebral musculature. Most recently had C7-T1 ILESI with trigger point injections. She did note that the most recent injections that helped quite a bit. She is still feeling pain in the right neck and shoulder area and she is inquiring about repeating cervical medial branch RFA. She said that helped quite a bit and she would like to do that again. She is also wondering if there are any further medication adjustments that we could possibly do to help. Patient denies new-onset weakness, bowel/bladder incontinence, or any other signs or symptoms of cauda equina syndrome. There are no signs of acute intoxication, and no indications of medication diversion or overuse. In addition to above, 13-point review of systems is also negative for chest pain, shortness of breath, changes in vision, changes in hearing, new onset weakness, abdominal pain, diarrhea, extreme fatigue, malaise, fever, skin changes, homicidal or suicidal ideation, or bowel or bladder incontinence. Vital Signs: Reviewed in EMR Gen: AAOx3, NAD HEENT: PERRLA,hearing grossly normal Pulm: resp unlabored Neck: supple, trachea midline Neuro exam of the upper extremities: Shows absent triceps reflex bilaterally, the rest of the reflexes are normal. 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 Tenderness in the paravertebral musculature: Positive on the upper thoracic and lower cervical paravertebral musculature on the right side of the spine. Facet loading positive bilaterally Neuro: CN II-XII grossly intact,reflexes intact 2+ UE. [place] sign negative, no clonus Imaging: Reviewed in EMR/chart Assessment: cervical radiculopathy Cervical spondylosis without myelopathy Myofascial pain Opioid dependence Plan: 1. Explanation: Opioid and psychological risk scores were reviewed. Diagnoses, prognoses, and multiple treatment options including but not limited to physical therapy, interventional therapies, adjuvant medical therapies, narcotic medication therapies, and surgery were discussed with the patient and all questions were answered to the patient's satisfaction. 2. Opioid agreement: Signed with the patient and the patient is warned not to use opioids while driving or before driving and not to combine opioids with benzodiazepines or alcohol. 3. Counseling: The patient was counseled extensively on EXERCISE. Specifically, the patient was instructed regarding the importance of exercise in the context of both chronic pain and overall health. 4. Procedures: B/l C4-C5 and C5-C6 RFA with trigger point injections in the cervical paraspinal, rhomboid, levator scapulae muscles. Trigger point injections have been quite helpful for her. 5. Consultations: None 6. Investigations: UDS today 7. Medications: Continue with [place] 7.5 mg 3 times a day and Neurontin 400 mg 3 times a day plus Flexeril 10 mg twice a day. We did look into possibly adjusting her muscle relaxant regimen, however she has tried every muscle relaxant I can think of none of them have been effective. I did add on Mobic 7.5 twice a day and encouraged her to stop her ibuprofen as well as likely more effective for her. we can increase Neurontin in the future to 600 3 times a day as well if needed 8. Disposition: for above procedure 9. Maps were reviewed and were appropriate. I have spent 37minutes with chart reviewing the patient, speaking to the patient, and discussing plan of care with the patient Controlled Substance Measures Is patient prescribed a controlled substance at discharge?: Yes When asked, does pt state using other controlled substances?: No If prescribed controlled substance>3 days was MAPS reviewed?: Yes If Rx opioid, was Start Talking consent form obtained?: Yes If opioid is for acute pain is fill amount 7 days or less?: No Was information provided regarding opioid addiction?: Yes PQRS Measure Charge Sheet PQRS Narrative: Smoking Status Never smoker Narcotic Agreement Date Signed 10/01/19 Pain Intensity [Neck] 3 Hx Alcohol Use (MH) Yes: rare Home Medications: Ambulatory Orders buPROPion HCL [Wellbutrin XL] 300 mg PO QAM 03/31/16 lamoTRIgine [LaMICtal] 200 mg PO BID 03/31/16 traZODone HCL [Desyrel] 100 mg PO HS 05/11/16 Ibuprofen [Motrin] 800 mg PO Q8HR PRN #90 tab 10/01/19 Cyclobenzaprine [Flexeril] 10 mg PO DAILY PRN 03/24/20 Gabapentin [Neurontin] 400 mg PO TID 30 Days #90 cap 05/24/20 Gabapentin [Neurontin] 400 mg PO TID 30 Days #90 cap 05/24/20 HYDROcodone/APAP 7.5-325MG [[place] 7.5-325] 1 tab PO TID 30 Days #90 mg 05/24/20 HYDROcodone/APAP 7.5-325MG [[place] 7.5-325] 1 tab PO TID PRN 30 Days #90 tab 05/24/20 Meloxicam [Mobic] 7.5 mg PO BID 30 Days #60 tab 05/24/20 Controlled Substance Measures - Controlled Substance Measures Is patient prescribed a controlled substance at discharge?: Yes When asked, does pt state using other controlled substances?: No If prescribed controlled substance>3 days was MAPS reviewed?: Yes If Rx opioid, was Start Talking consent form obtained?: Yes If opioid is for acute pain is fill amount 7 days or less?: No Was information provided regarding opioid addiction?: Yes
== END ==
LOC: PNWHC3 10:20
PROVIDERS: ATTEND Anesthesiology
DX: M47.22 Other spondylosis with radiculopathy, cervical region (principal); M79.18 Myalgia, other site; F11.20 Opioid dependence, uncomplicated
CPT/HCPCS: 99211

== ENCOUNTER → 2020-06-18 | Day surgery (SDC) | payer BC ==
[2020-06-17 11:13] VITALS: BMI 30.6
[~2020-06-18] MED LIST changes: +DEXAMETHASONE SOD PHOSPHATE 10 MG/ML 1 ML VIAL ONE; +IV FLUID CONTINUATION 400 ML IV ONE; +LIDOCAINE 1% (10MG/ML) FOR IV START INTRADERMA ONE; +LIDOCAINE 1% INJ 10MG/ML (20 ML MDV) ONE; +MIDAZOLAM 2 MG/2 ML VIAL ONE; +ROPIVACAINE 5MG/ML 20ML VIAL ONE; +fentaNYL (PF) 50 MCG/ML 2 ML AMP ONE
[2020-06-18 11:42] VITALS: RESP 16; TEMP 97.2
--- NOTE | 2020-06-18 13:10 | P.PCN ---
Date of Procedure: 06/18/20 Surgeon: Mateo Riggins Pathology: none sent Condition: stable Disposition: PACU Description of Procedure: PREOPERATIVE DIAGNOSIS: Cervical spondylosis with Facet Arthropathy without myelopathy, cervical myofascial pain POSTOPERATIVE DIAGNOSIS: Cervical spondylosis with Facet Arthropathy without myelopathy, cervical myofascial pain PROCEDURES: Right Radiofrequency thermocoagulation, C4, C5 and C6 medial branch with Fluroscopy [place]. Trigger point injection in the right cervical paravertebral musculature, right trapezius muscle and right levator scapulae muscle ANESTHESIA: Local with 1% lidocaine; IV moderate conscious sedation by the anesthesia Department. EBL: Minimal PROCEDURE INDICATION: The patient with neck pain secondary to cervical arthropathy who had more than 50% relief of her pain with previous diagnostic cervical medial branch block. PROCEDURE DESCRIPTION / TECHNIQUE: The patient was seen and identified in the preoperative area. Risks, benefits, complications, and alternatives were discussed with the patient, the patient agreed to proceed with the procedure and signed the consent. IV was started. Vital signs remained stable throughout the procedure. Patient was taken to the OR and time out was completed. The patient was placed in the prone position on the procedure table. A pillow was placed under the patients chest to increase the cervical interlaminar space. The cervical area was prepped and draped in the usual sterile fashion. Critical pause was taken. Vital signs were closely monitored during the procedure. Conscious sedation was used during the procedure to decrease patients anxiety. Using cross-table lateral fluoroscopy, the center of the trapezoid-shaped cervical pillars of C4,5,and 6 were identified, marked, and localized with 1% lidocaine. Subsequently, a 20 [id number] radiofrequency cannula with a 10-mm active tip was advanced guided by fluoroscopy to the target points mentioned ab ove. . Each site then underwent motor testing at 2 Hz and 0 to 3 volt with local stimulation, but no radicular symptoms down the arm. I then injected 1 ml of lidocaine 1% in each needle. Thereafter C3 ,C4 and C5 sites underwent radiofrequency thermocoagulation at 80 degrees celsius for 90 seconds . After thermocoagulation was done, 1 ml of the block solution containing Dexamethasone 10 mg and 2 mL of preservative-free ropivacaine was injected at the target points after negative aspiration of CSF and blood and with no paresthesias. Cannulas were retracted. Skin was cleansed and bandages were applied. I then turned my attention to doing the trigger point injection in the muscles mentioned above using 25-gauge 1-1/2 inch needle and lidocaine 1% with 1 mL injected at each trigger point with a total of 5 MLS injected. COMPLICATIONS: No acute complications. COMMENTS: A copy of needle placement was saved to the C-arm machine at the radiology department. DISPOSITION / PLANS: The patient was placed in a supine position and transferred to the recovery area in a stable condition for observation and was discharged from the recovery room after meeting discharge criteria. Home discharge instructions given to the patient by the staff.
[2020-06-18 13:48] VITALS: BP 111/66; PULSE 64
--- NOTE | 2020-06-21 13:16 | FL ---
Fluoroscopy History: Brando Cerv Rad Freq 24sec fluoro time,2 images to PACS+
== END ==
LOC: EDSTATUS 06-03 09:00 → ORPAIN 11:19
PROVIDERS: ATTEND Anesthesiology
DX: M47.812 Spondylosis without myelopathy or radiculopathy, cervical region (principal); M79.18 Myalgia, other site; M25.552 Pain in left hip; M25.551 Pain in right hip; F41.9 Anxiety disorder, unspecified; F32.9 Major depressive disorder, single episode, unspecified; G43.909 Migraine, unspecified, not intractable, without status migrainosus; Z98.890 Other specified postprocedural states; Z78.0 Asymptomatic menopausal state; Z79.891 Long term (current) use of opiate analgesic; Z79.899 Other long term (current) drug therapy; Z79.1 Long term (current) use of non-steroidal anti-inflammatories (NSAID)
CPT/HCPCS: 20553; 64633; 64634; J2250; J1100; J2001 ×2; J3010; J2795

== ENCOUNTER → 2020-07-05 | Outpatient (CLI) | payer BC ==
--- NOTE | 2020-07-05 15:27 | P.PN ---
Subjective Progress Note Date: 07/05/20 The follow-up visit for this 54 years old female with a chronic history of severe neck pain with radiation to the upper extremity, she is diagnosed with cervical radiculopathy ,cervical spondylosis , cervical foraminal stenosis, and myofascial pain syndrome cervical status post RFA Right medial branch block cervical area C4, C5, C6 , and trigger point injection, the pain controlled between interventional pain management and medication management, she continued to have neck pain the neck pain increases with any neck movement or hyperextension of the neck, she denies any motor or sensory deficit, and she reported that the neck pain radiated to the shoulder blade bilaterally that is more severe on the left side, she had no fever or night sweats. She denies any change in the bowel movement or urination and she is currently on [place] 7.5/325 every 8 hours ,Mobic 7.5 mg 2 times a day when necessary, and Neurontin 400 mg 3 times a day, she denies any side effects of the medication she denies any excessive drowsiness or sleepiness and shape of the current medication is not helping enough to control her pain Physical examination -Constitutiona : Cooperative , not in acute distress . -HEENT : nech : supple , no Lymphadenopathy , normal thyroid size . : eyes : no ptosis , no icterus, no photophobia . - neurologic : Cranial nerve II to XII intact , no focal neurological deffecit . -psychatric : alert , oriented X 3 , appropriate affect , intact judgment and insight . -Lymphatic : no Lymphadenopathy . - musculoskeltal : Cervical Spine motor stregnth in the deltoid and biceps, normal right side , normal Left side motor stregnth biceps and the wrist extensors normal right side ,normal left side . motor stregnth in the triceps muscle . normal Right side , normal Left side deep tendon reflexes normal at the biceps , normal at Brachioradialis , normal at triceps. cervical facet loading test= Positive Bilaterally multiples trigger point identified in the cervical paraspinal muscles and thoracic paraspinal muscles bilaterally Lumber spine moter stegnth lower extremities ,thigh and legs 5/5 Right side , 5/5 Left side Assessment and plan= chronic neck pain secondary to cervical degenerative disc disease , cervical spondylosis with lumbar facet arthropathy , and myofascial pain syndrome and cervical area. Status post RFA of the RIGHT medial branch cervical area and trigger point injections cervical area chronic and current use of high-risk medication (opioids) Patient denies any side effects of the current pain medication and the current treatment/medication helping the patient to do activity of daily living , Diagnoses, prognosis, treatment options, including but not limited to physical therapy, medication management, interventional therapies, and surgery, were discussed with the patient All the questions answered The narcotic consent was signed and patient agreed and understood the side effects and complications of opioid treatment. Patient signed the narcotic agreement, and was orally counseled, not to overuse, not to abuse, not to Divert , not tp sell pain medication, and to take it as prescribed only, Patient was counseled not to drive or operate heavy equipment while using narcotic medication, and advised not to use alcohol or any Illicit drugs while using the narcotis. understanding that lack of compliance with any of the above instructions, will likely to cause discharge from, the pain service, not to renew his narcotic prescriptions MAPS Reviwed and it was apropriate . Urine drug screen checked was appropriate Medication managements= patient will be given prescription refills for Neurontin 400 mg 3 times a day dispense 90 with 1 refill, [place] 7.5/325 every 8 hours, dispense 90 with 1 refill Mobic 7.5 mg twice a day dispense 60 with one refill Interventions= she could benefit from repeat RFA of the left side median branch cervical area at C4, C5, C6, And she could benefit from trigger point injection cervical and thoracic paraspinal muscles bilaterally Patient will follow up in the pain clinic in 2 months Time with Patient: Less than 30 PQRS Measure Charge Sheet Measure #130: Documentation of Current Meds in Medical Chart: Patient's medications documented in chart Measure #226: Tobacco Use: Screen & Cessation Intervention: Pt not a tobacco user Measure #111: Pneumonia Vaccination: Pneumococcal vaccine administered or previously received Measure #47: Advance Care Plan: Advance care planning discussed & documented, pt chose/unable to give Measure #412: Opioid Treatment Agreement: Documented signed opioid trtmnt agreemnt min once during opioid trtmnt Measure #408: Opioid Therapy Follow-up Evaluation: Patient had f/u eval minimum every 3 months during opioid therapy Measure #317: Preventitive Care & Scrn High Bld Press & F/U: Normal blood pressure, f/u not required Measure #128: Body Mass Index (BMI) Screening & Follow-up: BMI documented ABOVE normal parameters - f/u documented Measure #131: Pain Assessment & Follow-up: Pain positive & plan documented, Follow-up scheduled Measure #431: Unhealthy Alcohol Use Preventative Care & Scrn: Patient not identified as an unhealthy alcohol use Time with Patient: Less than 30 Objective - Vital Signs Vital signs: Vital Signs Temp 98.1 F 07/05/20 11:45 Pulse 73 07/05/20 11:45 Resp 18 07/05/20 11:45 BP 125/78 07/05/20 11:45 Pulse Ox 96 07/05/20 11:45
== END ==
CPT/HCPCS: 99211

== ENCOUNTER → 2020-09-20 | Outpatient (CLI) | payer BC ==
[2020-09-20 10:23] VITALS: BP 107/75; PULSE 85; RESP 18; TEMP 98.8
--- NOTE | 2020-09-20 11:06 | P.PN ---
Subjective Progress Note Date: 09/20/20 The follow-up visit for this 54 years old female with a chronic history of severe neck pain with radiation to the upper extremity, she is diagnosed with cervical radiculopathy ,cervical spondylosis , cervical foraminal stenosis, previously we have done cervical RFA medial branch block cervical area C4, C5, C6 , and trigger point injection, the pain controlled between interventional pain management and medication management, she continued to have neck pain the neck pain increases with any neck movement or hyperextension of the neck, she denies any motor or sensory deficit, and she reported that the neck pain radiated to the shoulder blade bilaterally that is more severe on the left side, she had no fever or night sweats. She denies any change in the bowel movement or urination and she is currently on [place] 7.5/325 every 8 hours ,Mobic 7.5 mg 2 times a day when necessary, and Neurontin 400 mg 3 times a day, she denies any side effects of the medication she denies any excessive drowsiness or sleepiness and shape of the current medication is not helping enough to control her pain, and patient currently reported that she is having severe low back pain, which is more severe than her neck pain and localized in the low back area with radiation to the buttock bilaterally, denies any motor or sensory deficit in the lower extremity, she is doing home exercises without any benefit Physical Examinations : -Constitutiona : Cooperative , not in acute distress . -HEENT : nech : supple , no Lymphadenopathy , normal thyroid size . : eyes : no ptosis , no icterus, no photophobia . - neurologic : Cranial nerve II to XII intact , no focal neurological deffecit . -psychatric : alert , oriented X 3 , appropriate affect , intact judgment and insight . -Lymphatic : no Lymphadenopathy . - musculoskeltal : Cervical Spine motor stregnth in the deltoid and biceps, normal right side , normal Left side motor stregnth biceps and the wrist extensors normal right side ,normal left side . motor stregnth in the triceps muscle . normal Right side , normal Left side deep tendon reflexes normal at the biceps , normal at Brachioradialis , normal at triceps. cervical facet loading test: Positive Bilaterally Spurling test= positive Right , positive left. Neck distraction test= positive Right , positive left. Emily sign= positive right, positive left . Lumber spine moter stegnth lower extremities ,thigh and legs 5/5 Right side , 5/5 Left side deep tendon reflexes : normal Knee Jerk , normal ankle Jerk lumber facet Loading Test =positive Right , positive Left Range of motion of the lumbar spine Flexion 30 degrees, extension 10 degrees strait leg raising test = positive at degree Fabere test= positive Right , and positive LT . Sever tenderness over the Sacroiliac joint on the Right , and Left sides Gaenslen test= positive right ,and positive left . Seated flexion test= positive right ,and positive Left . Distraction test= positive bilaterally Assessment and plan= chronic neck pain secondary to cervical degenerative disc disease , cervical spondylosis with lumbar facet arthropathy , and myofascial pain syndrome and cervical area. Bilateral sacroiliitis chronic and current use of high-risk medication (opioids) Patient denies any side effects of the current pain medication and the current treatment/medication helping the patient to do activity of daily living , Diagnoses, prognosis, treatment options, including but not limited to physical therapy, medication management, interventional therapies, and surgery, were discussed with the patient All the questions answered The narcotic consent was signed and patient agreed and understood the side effects and complications of opioid treatment. Patient signed the narcotic agreement, and was orally counseled, not to overuse, not to abuse, not to Divert , not tp sell pain medication, and to take it as prescribed only, Patient was counseled not to drive or operate heavy equipment while using narcotic medication, and advised not to use alcohol or any Illicit drugs while using the narcotis. understanding that lack of compliance with any of the above instructions, will likely to cause discharge from, the pain service, not to renew his narcotic prescriptions MAPS Reviwed and it was apropriate . Urine drug screen checked was appropriate Medication managements= Discontinue Neurontin 400 mg (patient has stopped taking it for a few months ), [place] 7.5/325 every 8 hours, dispense 90 with 1 refill Mobic 7.5 mg twice a day dispense 60 with one refill Interventions= she could benefit from bilateral sacroiliac joint steroid injection In the future we can schedule patient for RFA medial plantar cervical area Patient will follow up in the pain clinic in 2 months Time with Patient: Less than 30 PQRS Measure Charge Sheet Measure #130: Documentation of Current Meds in Medical Chart: Patient's medications documented in chart Measure #226: Tobacco Use: Screen & Cessation Intervention: Pt not a tobacco user Measure #111: Pneumonia Vaccination: Pneumococcal vaccine administered or previously received Measure #47: Advance Care Plan: Advance care planning discussed & documented, pt chose/unable to give Measure #412: Opioid Treatment Agreement: Documented signed opioid trtmnt agreemnt min once during opioid trtmnt Measure #408: Opioid Therapy Follow-up Evaluation: Patient had f/u eval minimum every 3 months during opioid therapy Measure #317: Preventitive Care & Scrn High Bld Press & F/U: Normal blood pressure, f/u not required Measure #128: Body Mass Index (BMI) Screening & Follow-up: BMI documented ABOVE normal parameters - f/u documented Measure #131: Pain Assessment & Follow-up: Pain positive & plan documented, Follow-up scheduled Measure #431: Unhealthy Alcohol Use Preventative Care & Scrn: Patient not identified as an unhealthy alcohol use Time with Patient: Less than 30 Objective - Vital Signs Vital signs: Vital Signs Temp 98.8 F 09/20/20 10:19 Pulse 85 09/20/20 10:19 Resp 18 09/20/20 10:19 BP 107/75 09/20/20 10:19 Pulse Ox 95 09/20/20 10:19 Intake & Output 09/19/20 09/20/20 09/20/20 18:59 06:59 18:59 Weight 79.379 kg
== END ==
LOC: PNWHC3 10:01
PROVIDERS: ATTEND Specialist
DX: G89.29 Other chronic pain (principal); M50.30 Other cervical disc degeneration, unspecified cervical region; M47.812 Spondylosis without myelopathy or radiculopathy, cervical region; M79.18 Myalgia, other site; M46.1 Sacroiliitis, not elsewhere classified; Z79.891 Long term (current) use of opiate analgesic
CPT/HCPCS: 99211

== ENCOUNTER → 2020-11-15 | Outpatient (CLI) | payer BC ==
[2020-11-15 10:08] VITALS: BP 126/90; PULSE 81; RESP 18; TEMP 98.4
--- NOTE | 2020-11-15 10:20 | P.PAINPG ---
Subjective Progress Note Date: 11/15/20 The follow-up visit for this 54 years old female with a chronic history of severe neck pain with radiation to the upper extremity, and low back. To recap what we have done for her, we have done a cervical radiofrequency ablation at C4-C5 and C6 on the right side in May of this year was provided great relief but is starting to wane. We did trigger points for her left neck which have been helpful in right upper left The biggest issue. Right now biggest concern is her low back with occasional radiation into the flanks described as sharp and stabbing and limiting her from sleeping at night. She has had sacroiliac joint injections in this area in the past with significant relief. She is currently doing home exercises and stretching without any real benefit and she is hopeful that she was able to get her injections. After the sacroiliac joint injections, she would like to repeat her cervical RFA on the right side. She denies any change in the bowel movement or urination and she is currently on [place] 7.5/325 every 8 hours ,Mobic 7.5 mg 2 times a day when necessary she denies any side effects of the medication she denies any excessive drowsiness or sleepiness Physical Examinations : -Constitutional : Cooperative , not in acute distress . - neurologic : Cranial nerve II to XII intact , no focal neurological deffecit . -psychatric : alert , oriented X 3 , appropriate affect , intact judgment and insight . - musculoskeletal : Cervical Spine motor strength in the deltoid and biceps, normal right side , normal Left side motor strength biceps and the wrist extensors normal right side ,normal left side . motor strength in the triceps muscle . normal Right side , normal Left side deep tendon reflexes normal at the biceps , normal at Brachioradialis , normal at triceps. cervical facet loading test: Positive Bilaterally Spurling test= positive Right , positive left. Neck distraction test= positive Right , positive left. Emily sign= positive right, positive left . Lumber spine moter strength lower extremities ,thigh and legs 5/5 Right side , 5/5 Left side deep tendon reflexes : normal Knee Jerk , normal ankle Jerk lumber facet Loading Test =positive Right , positive Left Range of motion of the lumbar spine Flexion 30 degrees, extension 10 degrees strait leg raising test = positive at degree Fabere test= positive Right , and positive LT . Sever tenderness over the Sacroiliac joint on the Right , and Left sides Gaenslen test= positive right ,and positive left . Seated flexion test= positive right ,and positive Left . Distraction test= positive bilaterally Assessment and plan= chronic neck pain secondary to cervical degenerative disc disease , cervical spondylosis with lumbar facet arthropathy , and myofascial pain syndrome and cervical area. Bilateral sacroiliitis chronic and current use of high-risk medication (opioids) Patient denies any side effects of the current pain medication and the current treatment/medication helping the patient to do activity of daily living , Diagnoses, prognosis, treatment options, including but not limited to physical therapy, medication management, interventional therapies, and surgery, were discussed with the patient All the questions answered The narcotic consent was signed and patient agreed and understood the side effects and complications of opioid treatment. Patient signed the narcotic agreement, and was orally counseled, not to overuse, not to abuse, not to Divert , not tp sell pain medication, and to take it as prescribed only, Patient was counseled not to drive or operate heavy equipment while using narcotic medication, and advised not to use alcohol or any Illicit drugs while using the narcotis. understanding that lack of compliance with any of the above instructions, will likely to cause discharge from, the pain service, not to renew his narcotic prescriptions MAPS Reviwed and it was apropriate . Urine drug screen checked was appropriate Medication managements= [place] 7.5/325 every 8 hours, dispense 90 with 1 refill Mobic 7.5 mg twice a day dispense 60 with one refill Interventions= Schedule for bilateral sacroiliac joint injections as the patient has failed conservative therapy and has benefited from these injections in the past. Afterwards we can repeat her right cervical radial frequency ablation. I have spent 24 minutes on patient care today. The time was used to review the medical records including relevant urine studies and prescription history, review of the available imaging, evaluation and examination of the patient, coordination of care with the medical staff and if applicable referring physicians, as well as creation of the medical record. PQRS Measure Charge Sheet PQRS Narrative: Smoking Status Never smoker Narcotic Agreement Date Signed 10/01/19 Pain Intensity [Left Hip] 4 Pain Intensity [Neck] 3 Scale Used Numeric (1 - 10) Hx Alcohol Use (MH) Yes: rare Home Medications: Ambulatory Orders buPROPion HCL [Wellbutrin XL] 300 mg PO QAM 01/06/17 lamoTRIgine [LaMICtal] 400 mg PO DAILY 03/31/16 traZODone HCL [Desyrel] 100 mg PO HS 05/11/16 HYDROcodone/APAP 7.5-325MG [[place] 7.5-325] 1 tab PO TID PRN 30 Days #90 tab 11/15/20 HYDROcodone/APAP 7.5-325MG [[place] 7.5-325] 1 tab PO TID PRN 30 Days #90 tab 11/15/20 Meloxicam [Mobic] 7.5 mg PO BID 30 Days #60 tab 11/15/20 Controlled Substance Measures - Controlled Substance Measures Is patient prescribed a controlled substance at discharge?: Yes When asked, does pt state using other controlled substances?: No If prescribed controlled substance>3 days was MAPS reviewed?: Yes If Rx opioid, was Start Talking consent form obtained?: Yes If opioid is for acute pain is fill amount 7 days or less?: No Was information provided regarding opioid addiction?: No
== END ==
LOC: PNWHC3 09:58
PROVIDERS: ATTEND Anesthesiology
DX: M50.30 Other cervical disc degeneration, unspecified cervical region (principal); M47.812 Spondylosis without myelopathy or radiculopathy, cervical region; M79.18 Myalgia, other site; M46.1 Sacroiliitis, not elsewhere classified; G89.29 Other chronic pain; Z79.891 Long term (current) use of opiate analgesic
CPT/HCPCS: 80307; 99212; G0482

== ENCOUNTER 2020-12-16 09:17 | Day surgery (SDC) | payer BC ==
[2020-12-15 12:10] VITALS: BMI 31.1
[2020-12-16] MEDS ORDERED: LACTATED RINGERS 1,000 ML IV SCH (09:45)
[2020-12-16] MEDS ORDERED: LIDOCAINE 1% (10MG/ML) FOR IV START INTRADERMA ONE (10:06)
[2020-12-16 10:11] VITALS: TEMP 98.2
[2020-12-16] MEDS ORDERED: MIDAZOLAM 2 MG/2 ML VIAL ONE (10:20)
[2020-12-16] MEDS ORDERED: fentaNYL (PF) 50 MCG/ML 2 ML AMP ONE (10:20)
[2020-12-16] MEDS ORDERED: ROPIVACAINE 5MG/ML 20ML VIAL ONE (10:20)
[2020-12-16] MEDS ORDERED: methylPREDNISolone ACETATE 40 MG/ML 1 ML VIAL ONE (10:20)
--- NOTE | 2020-12-16 10:37 | P.PCN ---
Date of Procedure: 12/16/20 Procedure(s) Performed: Procedure= bilateral sacroiliac joints steroid injection under fluoroscopy guidance (fluoroscopy image stored on file in the radiology Department ) Preoperative diagnosis= 1-Bilateral sacroiliitis Postoperative diagnosis=Same as preop Diagnosis . Complication = none Condition= stable Anesthesia= moderate sedation with intravenous Versed 2 mg , and fentanyl 100 micrograms . Indication for the procedure= patient complaining of low back pain , examination was positive for severe tenderness over the sacroiliac joints bilaterally and patient diagnosed with sacroiliitis, for this reason , she was good candidate for sacroiliac joint steroid injection. Description of the procedure= procedure risk and benefits discussed with the patient, including but not limited, risk of infection and bleeding, and ALLERGIC reaction to the medication and not complete pain relief and patient agreed with the preceding patient taken to the operating room, placed in prone position or standard monitors applied to the patient then after induction of anesthesia back prepped with chlorhexidine 3 times , Then under strict sterile technique, first I did the right sacroiliac joint the which was identified under fluoroscopy guidance been local infiltration of the skin and subcu interstitial with lidocaine 1% then 22-gauge Quincke Needle advanced slowly under fluoroscopy and placed in the right sacroiliac joint needle placement confirmed with AP and oblique and lateral view and after appropriate needle placement confirmed and after negative aspiration, or heme , then Ropivacaine 0.5% 4 mL, and 40 mg of Depo-Medrol mixed together and injected in the right sacroiliac joint after negative aspiration patient tolerated the procedure well without any complication. Then the left sacroiliac joint steroid injection done under strict sterile technique local infiltration of the skin and subcu interstitial at the location of the left sacroiliac joint then a 22-gauge Quincke Needle advanced slowly under fluoroscopy time placed in the left sacroiliac joint, needle placement confirmed with AP and oblique and lateral view then after appropriate needle placement confirmed and after negative aspiration 0.5% Ropivacaine 4 mL and 40 mg of Depo-Medrol injected in the left sacroiliac joint after negative aspiration patient tolerated the procedure well that any complications and she will follow up in clinic 3 weeks
[2020-12-16] MEDS ORDERED: IV FLUID CONTINUATION 1,000 ML IV ONE (10:46)
[2020-12-16 10:59] VITALS: BP 101/72; PULSE 72; RESP 16
--- NOTE | 2020-12-16 12:50 | FL ---
Fluoroscopy History: ASHLEY SI JOINT ashley si joint steroid inj fl time 7 secs
== END 2020-12-16 11:04 | disposition home or self-care (01) ==
LOC: ORPAIN 09:17
PROVIDERS: ATTEND Specialist
DX: M46.1 Sacroiliitis, not elsewhere classified (principal)
CPT/HCPCS: 27096; J2250; J1030; J3010; J2795; 99152

== ENCOUNTER → 2021-01-10 | Outpatient (CLI) | payer BC ==
[2021-01-10 10:30] VITALS: BP 107/79; PULSE 79; RESP 18; TEMP 98.6
--- NOTE | 2021-01-10 19:02 | P.PN ---
Subjective Progress Note Date: 01/10/21 The follow-up visit for this 55 years old female ,with a chronic history of severe neck pain with radiation to the upper extremity, she is diagnosed with cervical radiculopathy ,cervical spondylosis , cervical foraminal stenosis, and sacroiliitis, previously we have done RFA of the medial branch cervical area and sacroiliac joint steroid injection , and trigger point injection, the pain controlled between interventional pain management and medication management, currently she is complaining of severe low back pain with radiation to the left buttock into the left hip area, she denies any motor or sensory deficit, and she reported that the neck pain radiated to the shoulder blade bilaterally that is more severe on the left side, she had no fever or night sweats. She denies any change in the bowel movement or urination and she is currently on [place] 7.5/325 every 8 hours ,Mobic 7.5 mg 2 times a day when necessary,she denies any side effects of the medication she denies any excessive drowsiness or sleepiness and shape of the current medication is not helping enough to control her pain, denie s any motor or sensory deficit in the lower extremity, she is doing home exercises without any benefit Physical Examinations : -Constitutiona : Cooperative , not in acute distress . -HEENT : nech : supple , no Lymphadenopathy , normal thyroid size . : eyes : no ptosis , no icterus, no photophobia . - neurologic : Cranial nerve II to XII intact , no focal neurological deffecit . -psychatric : alert , oriented X 3 , appropriate affect , intact judgment and insight . -Lymphatic : no Lymphadenopathy . - musculoskeltal : Cervical Spine motor stregnth in the deltoid and biceps, normal right side , normal Left side motor stregnth biceps and the wrist extensors normal right side ,normal left side . motor stregnth in the triceps muscle . normal Right side , normal Left side Lumber spine moter stegnth lower extremities ,thigh and legs 5/5 Right side , 5/5 Left side deep tendon reflexes : normal Knee Jerk , normal ankle Jerk lumber facet Loading Test =positive Right , positive Left Range of motion of the lumbar spine Flexion 30 degrees, extension 10 degrees strait leg raising test = positive at 60 degree Fabere test= positive Right , and positive LT . Sever tenderness over the Sacroiliac joint on the Left sides [place] test= positive left . Seated flexion test= positive Left . Distraction test= positive left Severe tenderness over the left trochanteric bursa Assessment and plan= chronic neck pain secondary to cervical degenerative disc disease , cervical spondylosis with lumbar facet arthropathy , and myofascial pain syndrome and cervical area. left sacroiliitis. Left trochanteric bursitis chronic and current use of high-risk medication (opioids) Patient denies any side effects of the current pain medication and the current treatment/medication helping the patient to do activity of daily living , Diagnoses, prognosis, treatment options, including but not limited to physical therapy, medication management, interventional therapies, and surgery, were discussed with the patient All the questions answered The narcotic consent was signed and patient agreed and understood the side effects and complications of opioid treatment. Patient signed the narcotic agreement, and was orally counseled, not to ov eruse, not to abuse, not to Divert , not tp sell pain medication, and to take it as prescribed only, Patient was counseled not to drive or operate heavy equipment while using narcotic medication, and advised not to use alcohol or any Illicit drugs while using the narcotis. understanding that lack of compliance with any of the above instructions, will likely to cause discharge from, the pain service, not to renew his narcotic prescriptions MAPS Reviwed and it was apropriate . Urine drug screen checked was appropriate Medication managements= refil [place] 7.5/325 every 8 hours, dispense 90 with 1 refill Mobic 7.5 mg twice a day dispense 60 with one refill Interventions= she could benefit from left sacroiliac joint steroid injection, and patient could benefit from left trochanteric bursa steroid injection under fluoroscopy guidance Patient will follow up in the pain clinic in 2 months Time with Patient: Less than 30 PQRS Measure Charge Sheet Measure #130: Documentation of Current Meds in Medical Chart: Patient's medications documented in chart Measure #226: Tobacco Use: Screen & Cessation Intervention: Pt not a tobacco user Measure #111: Pneumonia Vaccination: Pneumococcal vaccine administered or previously received Measure #47: Advance Care Plan: Advance care planning discussed & documented, pt chose/unable to give Measure #412: Opioid Treatment Agreement: Documented signed opioid trtmnt agreemnt min once during opioid trtmnt Measure #408: Opioid Therapy Follow-up Evaluation: Patient had f/u eval minimum every 3 months during opioid therapy Measure #317: Preventitive Care & Scrn High Bld Press & F/U: Normal blood pressure, f/u not required Measure #128: Body Mass Index (BMI) Screening & Follow-up: BMI documented ABOVE normal parameters - f/u documented Measure #131: Pain Assessment & Follow-up: Pain positive & plan documented, Follow-up scheduled Measure #431: Unhealthy Alcohol Use Preventative Care & Scrn: Patient not identified as an unhealthy alcohol use Time with Patient: Less than 30 Objective - Vital Signs Vital signs: Vital Signs Temp 98.6 F 01/10/21 10:25 Pulse 79 01/10/21 10:25 Resp 18 01/10/21 10:25 BP 107/79 01/10/21 10:25 Pulse Ox 96 01/10/21 10:25
== END ==
LOC: PNWHC3 10:12
PROVIDERS: ATTEND Specialist
DX: G89.29 Other chronic pain (principal); M50.30 Other cervical disc degeneration, unspecified cervical region; M47.812 Spondylosis without myelopathy or radiculopathy, cervical region; M79.18 Myalgia, other site; M46.1 Sacroiliitis, not elsewhere classified; M70.62 Trochanteric bursitis, left hip; Z79.891 Long term (current) use of opiate analgesic
CPT/HCPCS: 99211

== ENCOUNTER → 2021-03-07 | Outpatient (CLI) | payer BC ==
[2021-03-07 08:51] VITALS: BP 126/88; PULSE 89; RESP 18; TEMP 98.4
--- NOTE | 2021-03-07 15:13 | P.PAINPG ---
Subjective Progress Note Date: 03/07/21 Principal diagnosis: Lumbar back pain Ms. Moser is a 56 -year-old pleasant female came to the [facility] pain clinic for prescription refill . Patient has ongoing pain for many years. Patient describes pain is aching, throbbing, constant type of pain. Pain is radiating to left lower extremity sometimes he rated. Patient had bilateral sacroiliac joint injection with good relief for a few weeks. Patient rated pain levels are 7-8 out of 10 in severity. With the help of medications pain levels are 5 out of 10 in severity. Activities making pain worse. Medications, resting, interventional procedures, exercises helping in relieving patient's pain. Patient pain some days better than others. Overall activities decreased secondary to pain. Because of the pain sometimes patient is feeling lack of sleep, interest, and energy. Denied any side effects with the medications. Denied any bowel or bladder problems at this time. Patient denies any suicidal or homicidal ideations intent or plan. Patient denies any auditory or visual hallucinations. Patient denied any red flag symptoms related to pain. Objective - Vital Signs Vital signs: Vital Signs Temp 98.4 F 03/07/21 08:48 Pulse 89 03/07/21 08:48 Resp 18 03/07/21 08:48 BP 126/88 03/07/21 08:48 Pulse Ox 97 03/07/21 08:48 - Exam General: Well-developed, well-nourished, no acute distress HEENT: Normocephalic, and atraumatic Neck: Supple, no neck swelling Psychiatric: Appropriate mood, and affect FINANCIAL ENGINEER: No focal neurological deficits Musculoskeletal: Upper extremity: Normal strength, and range of motion. Sensation grossly intact Lower extremity: Normal strength, and decreased range of motion secondary to pain Lumbar spine: Paravertebral tenderness: positive Lumbar facet load test : positive Sacroiliac joint tenderness: Positive Thigh thrust test: Positive SI joint compression test: Positive Fabere test: Positive Multiple trigger point positive over lumbar area Tenderness over the left greater trochanteric area 30 seconds single leg stand test positive on left side - Constitutional Constitutional Comment(s): 13 point review of symptoms negative except as mentioned in history of present illness Assessment and Plan Assessment: Lumbar spondylosis without myelopathy Sacral leg joint dysfunction Left side greater trochanteric bursitis Myofascial pain syndrome, and chronic pain syndrome Plan: 1 Opioid, and psychological risk tools, and scores were reviewed. Diagnoses, prognosis, and multiple treatment options including but not limited to physical therapy, interventional therapy, adjunct medication therapy, narcotic medicat ion, and surgical options were discussed with the patient. And all questions were answered to the patient's satisfaction. #2 Opioid agreement: Patient was thoroughly discussed regarding the medication side effects, complications associated with narcotic use. Patient recommended do not drive while on narcotic medications, any other sedative medications, and illicit drugs including marijuana. Patient clearly understood. Patient has signed narcotic agreement and was again asked to re-read this document and will be given a copy to take home if requested. This document outlines the policies of the [facility]. It specifically counsels the patient to not misuse, overuse, abuse, divert, or sell medications, and to take them as prescribed by only one healthcare provider and store the medications in a safe and preferably locked location. This document also counsels against driving while using narcotic medications and also against using any alcohol or illicit or recreational drugs in conjunction with opioids. The patient verbalized understanding to staff that lack of compliance with any of the above will likely result in failure to renew narcotic prescriptions, po ssible discharge from the clinic, and possible legal ramifications thereafter. #3 Patient was counseled on importance of regular exercise. Including singh chi, aerobic exercises as tolerated. Which helps for chronic pain, and overall well- being. Patient also counseled regarding importance of weight control rolling chronic pain, and overall other health issues. By altering diet habits, minimizing sugar intake, and processed foods helps in minimizing Inflammation. Also discussed with the patient regarding intermittent fasting. #4 consultation: None #5 investigations: MAPS , urine drug test- reviewed #6 interventional procedures: Patient refuses #7 medications #1 [place] 7.5/325 by mouth every 8 hours as needed dispense 90 with 1 refill #2 Mobic 7.5 mg by mouth daily as needed dispense 30 with 5 refills, patient recommended to drink plenty of water to minimize kidney insult, and recommended to take off for the intake to minimize stomach irritation. Medication side effects, complications, long-term consequences discussed with the patient. Patient recommended to contact the pain clinic if noticed any issues with given medications. #8 morphine milligrams equivalents dose ( MME) per day: 22.5. #9 TENS unit's, and percussion massage device #10 disposition scheduled to follow up with pain clinic for 8 weeks duration . Time with Patient: Less than 30 PQRS Measure Charge Sheet Measure #130: Documentation of Current Meds in Medical Chart: Patient's medications documented in chart Measure #226: Tobacco Use: Screen & Cessation Intervention: Pt not a tobacco user Measure #111: Pneumonia Vaccination: Pneumococcal vaccine NOT administered or previously given Measure #47: Advance Care Plan: Advance care planning discussed & documented, pt chose/unable to give Measure #412: Opioid Treatment Agreement: No documentation of signed opioid treatment agreement Measure #408: Opioid Therapy Follow-up Evaluation: Patient had NO f/u eval minimum every 3 months during opioid therapy (There were times tomorrow procedure starts in) Measure #317: Preventitive Care & Scrn High Bld Press & F/U: Pre-hypertensive or hypertensive BP documented, pt will f/u with PCP Measure #128: Body Mass Index (BMI) Screening & Follow-up: BMI documented ABOVE normal parameters - f/u documented Measure #131: Pain Assessment & Follow-up: Pain positive & plan documented Measure #431: Unhealthy Alcohol Use Preventative Care & Scrn: Patient not identified as an unhealthy alcohol user Mode of Arrival: Ambulatory - Pain Location Left Hip Non-Pharmacological Interventions: Heat, Home Exercise, Physical Therapy, Stretching Pharmacological Interventions: Block, Medication, PRN Medication PQRS Narrative: Smoking Status Never smoker Narcotic Agreement Date Signed 10/01/19 Blood Pressure 126/88 Pain Intensity [Left Hip] 5 Scale Used Numeric (1 - 10) Hx Alcohol Use (MH) Yes: rare Home Medications: Ambulatory Orders lamoTRIgine [LaMICtal] 400 mg PO QAM 03/31/16 traZODone HCL [Desyrel] 100 mg PO HS 05/11/16 HYDROcodone/APAP 7.5-325MG [[place] 7.5-325] 1 tab PO TID PRN 30 Days #90 tab 01/10/21 Meloxicam [Mobic] 7.5 mg PO BID 30 Days #60 tab 01/10/21 Meloxicam [Mobic] 7.5 mg PO BID PRN 30 Days #60 tab 02/07/21 Controlled Substance Measures - Controlled Substance Measures Is patient prescribed a controlled substance at discharge?: Yes When asked, does pt state using other controlled substances?: No If prescribed controlled substance>3 days was MAPS reviewed?: Yes If Rx opioid, was Start Talking consent form obtained?: Yes If opioid is for acute pain is fill amount 7 days or less?: No Was information provided regarding opioid addiction?: Yes
== END ==
LOC: PNWHC3 08:29
DX: M47.816 Spondylosis without myelopathy or radiculopathy, lumbar region (principal); M53.3 Sacrococcygeal disorders, not elsewhere classified; M70.62 Trochanteric bursitis, left hip; M79.18 Myalgia, other site; G89.4 Chronic pain syndrome
CPT/HCPCS: 99211

== ENCOUNTER 2021-03-15 09:38 | Day surgery (SDC) | payer BC ==
[2021-03-14 13:29] VITALS: BMI 30.6
[2021-03-15 09:55] VITALS: TEMP 97.9
[2021-03-15] MEDS ORDERED: LACTATED RINGERS 1,000 ML IV ONE (10:04)
[2021-03-15] MEDS ORDERED: fentaNYL (PF) 50 MCG/ML 2 ML AMP ONE (10:06)
[2021-03-15] MEDS ORDERED: MIDAZOLAM 2 MG/2 ML VIAL ONE (10:06)
[2021-03-15] MEDS ORDERED: ROPIVACAINE 5MG/ML 20ML VIAL ONE (10:06)
[2021-03-15] MEDS ORDERED: TRIAMCINOLONE ACETONIDE 40 MG/ML 1 ML VIAL ONE (10:06)
[2021-03-15] MEDS ORDERED: IOPAMIDOL M200 10 ML VIAL ONE (10:06)
[2021-03-15] MEDS ORDERED: IV FLUID CONTINUATION 1,000 ML IV ONE (10:27)
--- NOTE | 2021-03-15 10:27 | P.PCN ---
Date of Procedure: 03/15/21 Description of Procedure: Pre- and Post-operative Diagnosis: Greater Trochanteric Bursitis Procedure: Left-sided Greater Trochanteric Bursa injection Surgeon: Joel Edwards Anesthesia: Local: 1% Lidocaine, IV sedation : Versed, and fentanyl. Complications: None Specimen removed: None Blood loss: None Fluoroscopic image: Saved to electronic medical records Indications for Procedure: The patient has been suffering from hip bursitis, failed with conservative therapy. Came here for greater trochanter bursa injection Procedure and Findings: The patient was seen and examined. The written informed consent was obtained after explaining the risks, benefits and alternatives of the procedure to the patient. The patient was brought to the procedure room and was placed in the supine position on the operating table. The anesthesia was started as mentioned above and monitoring was done with noninvasive blood pressure cuff, EKG and pulse oximetry. The skin preparation was done with ChloraPrep, and draping was done in usual sterile fashion. Sterile technique was observed throughout the procedure. Using fluoroscope in the AP view, the greater trochanter was identified. The middle of the greater trochanter was targeted for needle placement. 3 ml of 1% Lidocaine was injected with a 25 gauge needle to achieve adequate local anesthesia of the skin and subcutaneous tissue. A 22 gauge 3.5inch needle was introduced and advanced into the target area under direct fluoroscopic guidance. A bony contact was felt and the needle was withdrawn for about two millimeters. A negative aspiration was confirmed. 2 mL of Isovue 200 injected after negative aspiration. A total of 6 ml solution containing Kenalog 40 mg and 5 ml of 0.5% preservative-free ropivacaine was injected slowly. The needle was removed intact, area was cleaned and bandage was applied. The patient tolerated the procedure very well. The patient was transferred to the recovery room and remained stable until discharged home. The patient was given detailed discharge instructions for infection, bleeding, increased pain at the injection site, and was advised to seek immediate medical attention should significant side effects develop. The patient will be followed up with Pain Clinic within 4 weeks .
[2021-03-15] MEDS ORDERED: LACTATED RINGERS 1,000 ML IV SCH (10:30)
[2021-03-15 10:50] VITALS: BP 99/54; PULSE 78; RESP 16
--- NOTE | 2021-03-15 11:19 | FL ---
EXAMINATION TYPE: FL guided pain mgmt statistic DATE OF EXAM: 03/15/2021 CLINICAL HISTORY: Hip pain. TECHNIQUE: Fluoroscopy. COMPARISON: None. FINDINGS: Fluoroscopic guidance was provided during pain relief procedure performed by Dr. Nails . A total of 3 seconds of fluoroscopic time was utilized during the procedure and two spot images are acquired. Images acquired shows needle localization with contrast injection at the level of the samra ac crest. IMPRESSION: As Above.
== END 2021-03-15 11:17 | disposition home or self-care (01) ==
LOC: ORPAIN 09:38
DX: M46.1 Sacroiliitis, not elsewhere classified (principal); M70.62 Trochanteric bursitis, left hip; Z79.1 Long term (current) use of non-steroidal anti-inflammatories (NSAID); Z79.891 Long term (current) use of opiate analgesic; Z79.899 Other long term (current) drug therapy; N95.9 Unspecified menopausal and perimenopausal disorder
CPT/HCPCS: 20610; J2250; J3301; J3010; Q9966; J2795; 99152

== ENCOUNTER → 2021-05-02 | Outpatient (CLI) | payer BC ==
--- NOTE | 2021-05-02 09:31 | P.PN ---
Subjective Progress Note Date: 05/02/21 Principal diagnosis: A 56 yr old female with a history of severe and chronic low back pain secondary to lumbar degenerative disc diseases and lumbar spondylosis with facet arthropathy presents today for a follow-up of the left trochanteric injection. Patient admits she experienced 65% pain relief for 3 weeks status post injection, then it started to return again. Pain level is currently 5 out of 10 in intensity but escalates up to 6 out of 10 in intensity by evening. Pain is provoked by laying supine for several hours and physical activity. Pain is dull/ achy in the left lateral hip with shooting pain occasionally down the left lower extremity. Pain is alleviated with medications, icy hot topical, injections, ice, physical therapy years ago, chiropractic treatment, home exercise regimen, yoga and repositioning. Interventional pain procedures completed include left lumbar RFA, bilateral SI joint injection, left trochanteric injection Patient is currently on [place] & Mobic Patient denies any side effects of the medication(s), denies excessive drowsiness or sleepiness, denies suicidal ideation and reports that the current pain medication is helping to control the pain and improve activities of daily living. Patient denies any motor or sensory deficits. Patient denies any fever or night sweats, denies any change in the bowel movements or urination. Physical Examination: -Constitutional: Cooperative. Not in acute distress . -HEENT: Neck is supple. No lymphadenopathy. No thyromegaly. Normal thyroid size. Eyes: No ptosis , no icterus, no photophobia. ENT: No auditory deficits. Normal oropharynx. No Thrush. - Respiratory: Chest clear to auscultations bilaterally. No wheezing. No rhonchi. - Cardiovascular: Regular rate and rhythm. S1 / S2 , no S3 , no S4. - Gastrointestinal: Abdomen soft no tenderness. Bowel sounds positive in all four quadrants. No organomegaly. - Genitourinary: Deferred. - Neurologic: Cranial nerve II to XII intact. No focal neurological deficits. - Psychatric: Alert & oriented x 3. Matching mood & appropriate affect. Judgment and insight intact. - Lymphatic: No Lymphadenopathy. - Musculoskeletal: Cervical spine: Muscle bulk/ tone/ strength in the bilateral upper extremities normal. Facet loading test cervical area positive. Lumbar spine: Motor bulk/ tone/ strength lower extremities , thigh and legs : 5/5 Deep tendon reflexes : Normal Knee Jerk. Normal Ankle Jerk . Moderate vertebral body tenderness to palpation over L3-L5 Lumbar Facet Loading Test positive over the bilateral L4-S1 Straight Leg Raise: positive at 30 degree right side/ left side Lisa test: positive right side / left side Range of motion: Range of motion in flexion of the lumbar spine <90 degrees Range of motion: Extension of the lumbar spine <20 degrees Moderate tenderness over the Sacroiliac joint: right side < left side Assessment and plan: Chronic low back pain secondary to lumbar degenerative disc disease , lumbar spondylosis with facet arthropathy without myelopathy Recommendation of second left trochanteric injection Urine collected for UDS Opioid agreement up to date Chronic and current use of high-risk medication (Opioids). The patient was counseled about risk of opioid use, psychological risk associated with opioids and was orally counseled to not overuse , divert or sell medications. Pt is to store medication in a safe location. The patient is counseled against driving while using narcotic medications and also not to use alcohol or any illicit recreational drugs. Patient verbalized understanding that the lack of compliance will result in failure to renew narcotic prescription(s) as well as possible discharge from the clinic Diagnoses, prognosis and treatment options including but not limited to physical therapy, surgical interventions, interventional therapies and medication management including narcotics and adjuvant medication were discussed. All patient questions answered MAPS reviewed and it was appropriate. Prescription refill for [place] 7.5/ 325mg # 90 with 1 refill and Mobic #30 with refill I have spent 31 minutes on patient care today. Dr Abad was available by phone for the evaluation of this patient. The time was used to review the medical records including relevant urine studies and Prescription history (MAPs), review of the available imaging, evaluation and examination of the patient, coordination of care with the medical staff and if applicable referring physicians, as well as creation of the medical record PQRS Measure Charge Sheet PQRS Narrative: Smoking Status Never smoker Narcotic Agreement Date Signed 10/01/19 Pain Intensity [Left Hip] 4 Pain Intensity [Neck] 4 Hx Alcohol Use (MH) Yes: rare Home Medications: Ambulatory Orders lamoTRIgine [LaMICtal] 400 mg PO QAM 03/31/16 traZODone HCL [Desyrel] 100 mg PO HS 05/11/16 HYDROcodone/APAP 7.5-325MG [[place] 7.5-325] 1 tab PO TID PRN 30 Days #90 tab 01/10/21 Meloxicam [Mobic] 7.5 mg PO BID PRN 30 Days #60 tab 02/07/21 buPROPion HCL [Wellbutrin XL] 300 mg PO DAILY 03/14/21
[2021-05-02 09:35] VITALS: BP 120/84; PULSE 67; RESP 18; TEMP 97.8
== END ==
LOC: PNWHC3 08:53
PROVIDERS: ATTEND Physician Assistant Medical
DX: G89.29 Other chronic pain (principal); M51.36 Other intervertebral disc degeneration, lumbar region; M47.816 Spondylosis without myelopathy or radiculopathy, lumbar region; Z79.891 Long term (current) use of opiate analgesic
CPT/HCPCS: 80307; 99212; G0482

== ENCOUNTER 2021-05-26 07:53 | Day surgery (SDC) | payer BC ==
[2021-05-25 10:08] VITALS: BMI 30.2
[2021-05-26 08:21] VITALS: RESP 18; TEMP 98.3
[2021-05-26] MEDS ORDERED: LACTATED RINGERS 1,000 ML IV SCH (08:30)
[2021-05-26] MEDS ORDERED: methylPREDNISolone ACETATE 40 MG/ML 1 ML VIAL ONE (09:00)
[2021-05-26] MEDS ORDERED: ROPIVACAINE 5MG/ML 20ML VIAL ONE (09:00)
[2021-05-26] MEDS ORDERED: IOPAMIDOL M200 10 ML VIAL ONE (09:00)
[2021-05-26] MEDS ORDERED: MIDAZOLAM 2 MG/2 ML VIAL ONE (09:00)
[2021-05-26] MEDS ORDERED: fentaNYL (PF) 50 MCG/ML 2 ML AMP ONE (09:00)
--- NOTE | 2021-05-26 09:17 | P.PCN ---
Date of Procedure: 05/26/21 Description of Procedure: Pre- and Post-operative Diagnosis: Greater Trochanteric Bursitis Procedure: Left side Greater Trochanteric Bursa injection Surgeon: Joel Edwards Anesthesia: Local: 1% Lidocaine, IV sedation : Versed 2 mg, and fentanyl 100 g. Complications: None Specimen removed: None Blood loss: None Fluoroscopic image: Saved to electronic medical records Indications for Procedure: The patient has been suffering from hip bursitis, failed with conservative therapy. Came here for greater trochanter bursa injection Procedure and Findings: The patient was seen and examined. The written informed consent was obtained after explaining the risks, benefits and alternatives of the procedure to the patient. The patient was brought to the procedure room and was placed in the supine position on the operating table. The anesthesia was started as mentioned above and monitoring was done with noninvasive blood pressure cuff, EKG and pulse oximetry. The skin preparation was done with ChloraPrep, and draping was done in usual sterile fashion. Sterile technique was observed throughout the procedure. Using fluoroscope in the AP view, the greater trochanter was identified. The middle of the greater trochanter was targeted for needle placement. 3 ml of 1% Lidocaine was injected with a 25 gauge needle to achieve adequate local anesthesia of the skin and subcutaneous tissue. A 22 gauge 3.5inch needle was introduced and advanced into the target area under direct fluoroscopic guidance. A bony contact was felt and the needle was withdrawn for about two millimeters. A negative aspiration was confirmed. One mL of Isovue 200 injected after negative aspiration. A total of 6 ml solution containing Depo-Medrol 80 mg and 5 ml of 0.5% preservative-free ropivacaine was injected slowly. The needle was removed intact, area was cleaned and bandage was applied. The patient tolerated the procedure very well. The patient was transferred to the recovery room and remained stable until discharged home. The patient was given detailed discharge instructions for infection, bleeding, increased pain at the injection site, and was advised to seek immediate medical attention should significant side effects develop. The patient will be followed up with Pain Clinic within 4 weeks .
[2021-05-26] MEDS ORDERED: IV FLUID CONTINUATION 600 ML IV ONE (09:18)
[2021-05-26 09:31] VITALS: BP 110/76; PULSE 71
--- NOTE | 2021-05-26 10:15 | FL ---
EXAMINATION TYPE: FL guided pain mgmt statistic DATE OF EXAM: 05/26/2021 CLINICAL HISTORY: Large bursa injection TECHNIQUE: Fluoroscopy. FINDINGS: Fluoroscopic guidance was provided during the procedure. A total of 1 second of fluoroscop ic time was utilized during the procedure and 1 spot images was acquired. IMPRESSION: As Above.
== END 2021-05-26 09:54 | disposition home or self-care (01) ==
LOC: ORPAIN 07:53
DX: M70.62 Trochanteric bursitis, left hip (principal); M16.10 Unilateral primary osteoarthritis, unspecified hip
CPT/HCPCS: 77002; 20610; J2250; J1030; J3010; Q9966; J2795; 99152

== ENCOUNTER → 2021-06-27 | Outpatient (CLI) | payer BC ==
[2021-06-27 09:36] VITALS: BP 110/77; PULSE 78; RESP 18; TEMP 98.6
--- NOTE | 2021-06-27 09:41 | P.PN ---
Subjective Progress Note Date: 06/27/21 Principal diagnosis: A 56 yr old female at side with a history of severe and chronic neck pain secondary to cervical degenerative disc diseases and spondylosis with facet arthropathy presents today for medication refills. Pain level is 4 out of 10 intensity, burning, stabbing sensation in the right aspect of the cervical spine with radiation of pain to the right shoulder. She also complains of bilateral feet pain due to plantar fasciitis. Pain is provoked by extension. Pain is alleviated with medications, topical icy hot, ice, physical therapy, chiropractic shows, home excise regimen, use of massage therapy integrative physical therapy and rest. Patient states she would like to discontinue Mobic as it is ineffective in managing pain and she would like to restart Motrin. Patient is currently on [place] 7.5/325 #90 and Mobic #30 from this clinic Patient denies any side effects of the medication(s), denies excessive drowsiness or sleepiness, denies suicidal ideation and reports that the current pain medication is helping to control the pain and improve activities of daily living. Patient denies any motor or sensory deficits. Patient denies any fever or night sweats, denies any change in the bowel movements or urination. Physical Examination: -Constitutional: Cooperative. Not in acute distress . -HEENT: Neck is supple. No lymphadenopathy. No thyromegaly. Normal thyroid size. Eyes: No ptosis , no icterus, no photophobia. ENT: No auditory deficits. Normal oropharynx. No Thrush. - Respiratory: Chest clear to auscultations bilaterally. No wheezing. No rhonchi. - Cardiovascular: Regular rate and rhythm. S1 / S2 , no S3 , no S4. - Gastrointestinal: Abdomen soft no tenderness. Bowel sounds positive in all four quadrants. No organomegaly. - Genitourinary: Deferred. - Neurologic: Cranial nerve II to XII intact. No focal neurological deficits. - Psychatric: Alert & oriented x 3. Matching mood & appropriate affect. Judgment and insight intact. - Lymphatic: No Lymphadenopathy. - Musculoskeletal: Cervical spine: Muscle bulk/ tone/ strength in the bilateral upper extremities normal. Facet loading test cervical area positive. Lumbar spine: Motor bulk/ tone/ strength lower extremities , thigh and legs : 5/5 Deep tendon reflexes : Normal Knee Jerk. Normal Ankle Jerk . Vertebral body tenderness to palpation over Lumbar Facet Loading Test positive Straight Leg Raise: positive at 30 degrees right side/ left side Gaenslen's Test positive Sacral spine : Severe tenderness over the Sacroiliac joint: right side / left side Range of motion: Flexion of the lumbar spine <60 degrees Range of motion: Extension of the lumbar spine <20 degrees Gaenslen's Test positive Lisa test: positive right side / left side Assessment and plan: Chronic neck pain secondary to cervical degenerative disc disease , spondylosis with facet arthropathy without myelopathy Chronic and current use of high-risk medication (Opioids). The patient was counseled about risk of opioid use, psychological risk associated with opioids and was orally counseled to not overuse , divert or sell medications. Pt is to store medication in a safe location. The patient is counseled against driving while using narcotic medications and also not to use alcohol or any illicit recreational drugs. Patient verbalized understanding that the lack of compliance will result in failure to renew narcotic prescription(s) as well as possible discharge from the clinic Diagnoses, prognosis and treatment options including but not limited to physical therapy, surgical interventions, interventional therapies and medication management including narcotics and adjuvant medication were discussed. All patient questions answered MAPS reviewed and it was appropriate. Prescription refill for [place] 7.5/325 #90 and Motrin 800 mg #90 one refill. Discontinue Mobic. I have spent 31 minutes on patient care today. Dr Abad was available by phone for the evaluation of this patient. The time was used to review the medical records including relevant urine studies and Prescription history (MAPs), review of the available imaging, evaluation and examination of the patient, coordination of care with the medical staff and if applicable referring physicians, as well as creation of the medical record Objective - Vital Signs Vital signs: Vital Signs Temp 98.6 F 06/27/21 09:30 Pulse 78 06/27/21 09:30 Resp 18 06/27/21 09:30 BP 110/77 06/27/21 09:30 Pulse Ox 97 06/27/21 09:30 PQRS Measure Charge Sheet Mode of Arrival: Ambulatory - Pain Location Neck Non-Pharmacological Interventions: Chiropractic Treatment, Home Exercise, Ice, Inactivity, Massage, Physical Therapy, Position/Reposition, Stretching Pharmacological Interventions: Block, Epidural, PRN Medication, Topical Med ication PQRS Narrative: Smoking Status Never smoker Narcotic Agreement Date Signed 09/20/20 Blood Pressure 110/77 Pain Intensity [Left Hip] 4 Pain Intensity [Neck] 4 Scale Used Numeric (1 - 10) Hx Alcohol Use (MH) Yes: rare Home Medications: Ambulatory Orders lamoTRIgine [LaMICtal] 400 mg PO QAM 03/31/16 traZODone HCL [Desyrel] 100 mg PO HS 05/11/16 buPROPion HCL [Wellbutrin XL] 300 mg PO DAILY 03/14/21 HYDROcodone/APAP 7.5-325MG [[place] 7.5-325] 1 tab PO Q8H PRN 30 Days #90 tab 06/27/21 HYDROcodone/APAP 7.5-325MG [[place] 7.5-325] 1 tab PO TID PRN 30 Days #90 tab 06/27/21 Ibuprofen [Motrin] 800 mg PO Q8H 30 Days #90 tab 06/27/21
== END ==
LOC: PNWHC3 08:54
PROVIDERS: ATTEND Specialist
DX: M50.30 Other cervical disc degeneration, unspecified cervical region (principal); M47.812 Spondylosis without myelopathy or radiculopathy, cervical region; G89.29 Other chronic pain; Z79.891 Long term (current) use of opiate analgesic
CPT/HCPCS: 99211

== ENCOUNTER → 2021-08-18 | Outpatient (CLI) | payer BC ==
[2021-08-18 08:57] VITALS: TEMP 98.2
--- NOTE | 2021-08-18 09:02 | P.PN ---
Subjective Progress Note Date: 08/18/21 Principal diagnosis: A 56 yr old female with a history of severe and chronic neck pain secondary to degenerative disc diseases and spondylosis with facet arthropathy presents today for medication refills. Pain level is currently at 3 out of 10 in intensity, soreness localized in the lower aspect of her cervical spine with radiation of burning pain to the right upper extremity. Pain escalates as high as 5 out of 10 in intensity at bedtime when medications are wearing off. Pain is alleviated with medications ([place]), injections, ice, repositioning, hot showers and rest. Interventional pain procedures completed include YAYA, cervical RFA C4/C5/C6, TPIs of left cervical spine, LESI Patient is currently on [place] 7.5/325 #90 Patient denies any side effects of the medication(s), denies excessive drowsiness or sleepiness, denies suicidal ideation and reports that the current pain medication is helping to control the pain and improve activities of daily living. Patient denies any motor or sensory deficits. Patient denies any fever or night sweats, denies any change in the bowel movements or urination. Physical Examination: -Constitutional: Cooperative. Not in acute distress . -HEENT: Neck is supple. No lymphadenopathy. No thyromegaly. Normal thyroid size. Eyes: No ptosis , no icterus, no photophobia. ENT: No auditory deficits. Normal oropharynx. No Thrush. - Respiratory: Chest clear to auscultations bilaterally. No wheezing. No rhonchi. - Cardiovascular: Regular rate and rhythm. S1 / S2 , no S3 , no S4. - Gastrointestinal: Abdomen soft no tenderness. Bowel sounds positive in all four quadrants. No organomegaly. - Genitourinary: Deferred. - Neurologic: Cranial nerve II to XII intact. No focal neurological deficits. - Psychatric: Alert & oriented x 3. Matching mood & appropriate affect. Judgment and insight intact. - Lymphatic: No Lymphadenopathy. - Musculoskeletal: Cervical spine: Muscle bulk/ tone/ strength in the bilateral upper extremities normal Vertebral body tenderness to palpation over C4, C5, C6 Facet loading test positive L > R Thoracic spine Muscle bulk / tone/ strength in the bilateral paraspinal muscles normal Vertebral body tender to palpation over Facet loading test positive Lumbar spine: Motor bulk/ tone/ strength lower extremities , thigh and legs : 5/5 Deep tendon reflexes : Normal Knee Jerk. Normal Ankle Jerk . Vertebral body tenderness to palpation over Lumbar Facet Loading Test positive Straight Leg Raise: positive at 30 degrees right side/ left side Gaenslen's Test positive Sacral spine : Severe tenderness over the Sacroiliac joint: right side / left side Range of motion: Flexion of the lumbar spine <60 degrees Range of motion: Extension of the lumbar spine <20 degrees Gaenslen's Test positive Cesar's Test positive Lisa test: positive right side / left side Thigh Thrust Test Sacral Thrust Test Assessment and plan: Chronic neck pain secondary to cervical degenerative disc disease , spondylosis with facet arthropathy without myelopathy Chronic and current use of high-risk medication (Opioids). The patient was counseled about risk of opioid use, psychological risk associated with opioids and was orally counseled to not overuse , divert or sell medications. Pt is to store medication in a safe location. The patient is counseled against driving while using narcotic medications and also not to use alcohol or any illicit recreational drugs. Patient verbalized understanding that the lack of compliance will result in failure to renew narcotic prescription(s) as well as possible discharge from the clinic Diagnoses, prognosis and treatment options including but not limited to physical therapy, surgical interventions, interventional therapies and medication management including narcotics and adjuvant medication were discussed. All patient questions answered MAPS reviewed and it was appropriate. UDS from April 2021 reviewed and consistent Prescription refill for [place] 7.5/325 #90 with 1 refill I have spent 31 minutes on patient care today. Dr Abad was available by phone for the evaluation of this patient. The time was used to review the medical records including relevant urine studies and Prescription history (MAPs), review of the available imaging, evaluation and examination of the patient, coordination of care with the medical staff and if applicable referring physicians, as well as creation of the medical record Objective - Vital Signs Vital signs: Vital Signs Temp 98.2 F 08/18/21 08:51 Pulse Resp BP Pulse Ox FiO2 Intake & Output 08/17/21 08/18/21 08/18/21 18:59 06:59 18:59 Weight 78.063 kg PQRS Measure Charge Sheet Mode of Arrival: Ambulatory - Pain Location Right Neck Non-Pharmacological Interventions: Heat, Home Exercise, Ice, Inactivity, Stretching Pharmacological Interventions: Medication PQRS Narrative: Smoking Status Never smoker Narcotic Agreement Date Signed 09/20/20 Pain Intensity [Right Neck] 5 Scale Used Numeric (1 - 10) Hx Alcohol Use (MH) Yes: rare Home Medications: Ambulatory Orders lamoTRIgine [LaMICtal] 400 mg PO QAM 03/31/16 traZODone HCL [Desyrel] 100 mg PO HS 05/11/16 buPROPion HCL [Wellbutrin XL] 300 mg PO DAILY 03/14/21 Ibuprofen [Motrin] 800 mg PO Q8H 30 Days #90 tab 06/27/21 HYDROcodone/APAP 7.5-325MG [[place] 7.5-325] 1 tab PO Q8H PRN 30 Days #90 tab 08/18/21 HYDROcodone/APAP 7.5-325MG [[place] 7.5-325] 1 tab PO TID PRN 30 Days #90 tab 08/18/21
== END ==
LOC: PNWHC3 08:35
PROVIDERS: ATTEND Specialist
DX: M50.30 Other cervical disc degeneration, unspecified cervical region (principal); M47.812 Spondylosis without myelopathy or radiculopathy, cervical region; Z79.891 Long term (current) use of opiate analgesic; G89.29 Other chronic pain
CPT/HCPCS: 99211

== ENCOUNTER → 2021-08-23 | Outpatient (CLI) | payer BC ==
--- NOTE | 2021-08-23 10:26 | XR ---
EXAMINATION TYPE: XR chest 2V DATE OF EXAM: 08/23/2021 COMPARISON: NONE HISTORY: History of asthma with shortness of breath. TECHNIQUE: Frontal and lateral views of the chest are obtained. FINDINGS: There is no focal air space opacity, pleural effusion, or pneumothorax seen. The cardiac silhouette size is within normal limits. The osseous structures are intact. IMPRESSION: No acute pulmonary process.
== END | disposition home or self-care (01) ==
LOC: RADXRMAIN 09:52
PROVIDERS: ATTEND Nurse Practitioner Family
DX: J45.909 Unspecified asthma, uncomplicated (principal)
CPT/HCPCS: 71046

== ENCOUNTER → 2021-09-07 | Outpatient (CLI) | payer BC ==
--- NOTE | 2021-09-08 11:24 | MM ---
Reason for Exam: Screening (asymptomatic). Patient History: Menarche at age 17. Postmenopausal. US biopsy breast VAD RT on the Right side. Risk Values: Adali 5 year model risk: 0.9%. NCI Lifetime model risk: 6.5%. Tissue Density: There are scattered fibroglandular densities. Findings: Analyzed By CAD. Biopsy clip right breast upper outer aspect is present. Benign-appearing bilateral axillary lymph nodes are seen. There is a 11 mm oval focal asymmetry in the left breast middle depth upper aspect slice 40 that warrants further workup, corresponding abnormalities are not clearly seen on CC view. Tiny nodule with benign calcifications in the right breast middle depth is present. Overall Assessment: Incomplete: need additional imaging evaluation, BI-RAD 0 Management: Special View Mammogram of the left breast. Diagnostic spot 3-D MLO view left breast and 3-D true lateral view left breast. Electronically signed and approved by: Eliud Arellano M.D.
== END | disposition home or self-care (01) ==
LOC: RADMAMWWP 08:09
PROVIDERS: ATTEND Family Medicine
DX: Z12.31 Encounter for screening mammogram for malignant neoplasm of breast (principal); Z78.0 Asymptomatic menopausal state
CPT/HCPCS: 77063; 77067

== ENCOUNTER → 2021-09-12 | Outpatient (CLI) | payer BC ==
--- NOTE | 2021-09-12 13:57 | USB ---
Reason for Exam: Additional evaluation requested from abnormal screening. Last screening mammogram was performed less than 1 month ago. Patient History: Menarche at age 17. Postmenopausal. US biopsy breast VAD RT on the Right side. Risk Values: Adali 5 year model risk: 0.9%. NCI Lifetime model risk: 6.5%. Prior Study Comparison: 09/07/2021 Bilateral MG 3D screening mammo w/cad, [facility]. Tissue Density: Left: There are scattered fibroglandular densities. Findings: Analyzed By CAD. Mammogram Faintly visualized is a 11 x 5 mm density in the upper aspect left breast. This is better visualized on the tomographic images and is 8 cm from the nipple. Follow-up in 6 months is recommended. Technique: Method: Targeted. Findings: No discrete solid or cystic areas evident in the upper outer quadrant to correspond to the mammographic finding. Overall Assessment: Probably benign, BI-RAD 3 Assessment: MG 3D work up w/cad LT - Left: Probably benign, BI-RAD 3. US breast workup limited LT - Left: Negative, BI-RAD 1. Management: Diagnostic Mammogram of the left breast in 6 months. A clinical breast exam by your physician is recommended on an annual basis and results should be correlated with mammographic findings. Results were given to the patient verbally at the time of exam. Patient should continue monthly self breast exam Negative mammogram or negative ultrasound should not preclude biopsy of suspicious palpable abnormalities. Electronically signed and approved by: Rosendo Porter D.O. Radiologis
== END | disposition home or self-care (01) ==
LOC: RADMAMWWP 12:42
PROVIDERS: ATTEND Family Medicine
DX: R92.8 Other abnormal and inconclusive findings on diagnostic imaging of breast (principal); Z78.0 Asymptomatic menopausal state
CPT/HCPCS: 77061; 77065

== ENCOUNTER → 2021-10-17 | Outpatient (CLI) | payer BC ==
[2021-10-17 09:02] VITALS: BP 128/73; PULSE 88; RESP 18; TEMP 99.1
--- NOTE | 2021-10-17 09:04 | P.PAINPG ---
PQRS Measure Charge Sheet Comment: A 56 yr old female with a history of severe and chronic neck pain secondary to cervical degenerative disc diseases and spondylosis with facet arthropathy presents today for R sided neck pain and medication refills. Pain level is currently a 4/10 in intensity, constant, burning, stabbing in character. Pain is provoked by lifting and rotation. Pain is alleviated with medications, heat, ice, home exercise regimen, topicals, repositioning and rest. Interventional pain procedures completed include R RFA C4-C5, C5-C6 Patient is currently on [place] 7.5/325mg #90, Ibuprofen Patient denies any side effects of the medication(s), denies excessive drowsiness or sleepiness, denies suicidal ideation and reports that the current pain medication is helping to control the pain and improve activities of daily living. Patient denies any motor or sensory deficits. Patient denies any fever or night sweats, denies any change in the bowel movements or urination. Physical Examination: -Constitutional: Cooperative. Not in acute distress . - Neurologic: Cranial nerve II to XII intact. No focal neurological deficits . - Psychatric: Alert & oriented x 3. Matching mood & appropriate affect. Judgment and insight intact. - Musculoskeletal: Cervical spine: Muscle bulk/ tone/ strength in the bilateral upper extremities normal Vertebral body tenderness to palpation Spurling test positive on the R Distraction test positive Facet loading test positive Thoracic spine Muscle bulk / tone/ strength in the bilateral paraspinal muscles normal Vertebral body tender to palpation over Facet loading test positive Lumbar spine: Motor bulk/ tone/ strength lower extremities , thigh and legs : 5/5 Deep tendon reflexes : Normal Knee Jerk. Normal Ankle Jerk . Vertebral body tenderness to palpation over Lumbar Facet Loading Test positive Straight Leg Raise: positive at 30 degrees right side/ left side Gaenslen's Test positive Sacral spine : Severe tenderness over the Sacroiliac joint: right side / left side Range of motion: Flexion of the lumbar spine <60 degrees Range of motion: Extension of the lumbar spine <20 degrees Gaenslen's Test positive Cesar's Test positive Lisa test: positive right side / left side Thigh Thrust Test Sacral Thrust Test Assessment and plan: Chronic neck pain secondary to degenerative disc disease , spondylosis with facet arthropathy without myelopathy Recommendation of R RFA C4-C5, C5-C6. Pt exhibited sufficient and substantial pain relief with prior RFA. Risks, benefits of procedure discussed and pt verbalized understanding. Denies anticoagulant use or medical history of diabetes. Chronic and current use of high-risk medication (Opioids). The patient was counseled about risk of opioid use, psychological risk associated with opioids and was orally counseled to not overuse , divert or sell medications. Pt is to store medication in a safe location. The patient is counseled against driving while using narcotic medications and also not to use alcohol or any illicit recreational drugs. Patient verbalized understanding that the lack of compliance will result in failure to renew narcotic prescription(s) as well as possible discharge from the clinic Diagnoses, prognosis and treatment options including but not limited to physical therapy, surgical interventions, interventional therapies and medication management including narcotics and adjuvant medication were discussed. All patient questions answered MAPS reviewed and it was appropriate. Prescription refill for [place] 7.5/325mg + Ibuprofen w refill I have spent less than 30 minutes on patient care today. Dr Abad was available by phone for the evaluation of this patient. The time was used to review the medical records including relevant urine studies and Prescription history (MAPs), review of the available imaging, evaluation and examination of the patient, coordination of care with the medical staff and if applicable referring physicians, as well as creation of the medical record PQRS Narrative: Smoking Status Never smoker Narcotic Agreement Date Signed 09/20/20 Hx Alcohol Use (MH) Yes: rare Home Medications: Ambulatory Orders lamoTRIgine [LaMICtal] 400 mg PO QAM 03/31/16 traZODone HCL [Desyrel] 100 mg PO HS 05/11/16 buPROPion HCL [Wellbutrin XL] 300 mg PO DAILY 03/14/21 HYDROcodone/APAP 7.5-325MG [[place] 7.5-325] 1 tab PO Q8H PRN 30 Days #90 tab 10/17/21 HYDROcodone/APAP 7.5-325MG [[place] 7.5-325] 1 tab PO TID PRN 30 Days #90 tab 10/17/21 Ibuprofen [Motrin] 800 mg PO Q8H 30 Days #90 tab 10/17/21 Controlled Substance Measures - Controlled Substance Measures Is patient prescribed a controlled substance at discharge?: Yes When asked, does pt state using other controlled substances?: No If prescribed controlled substance>3 days was MAPS reviewed?: Yes If Rx opioid, was Start Talking consent form obtained?: Yes Was information provided regarding opioid addiction?: Yes
== END ==
LOC: PNWHC3 08:09
PROVIDERS: ATTEND Specialist
DX: G89.29 Other chronic pain (principal); M50.30 Other cervical disc degeneration, unspecified cervical region; M47.812 Spondylosis without myelopathy or radiculopathy, cervical region; Z79.891 Long term (current) use of opiate analgesic
CPT/HCPCS: 99211

== ENCOUNTER 2021-12-09 08:09 | Day surgery (SDC) | payer BC ==
[2021-12-08 11:15] VITALS: BMI 30.4
[~2021-12-09 08:09] MED LIST changes: -DEXAMETHASONE SOD PHOSPHATE 10 MG/ML 1 ML VIAL ONE; -IV FLUID CONTINUATION 400 ML IV ONE; -LIDOCAINE 1% (10MG/ML) FOR IV START INTRADERMA ONE; +LIDOCAINE 1% (10MG/ML) FOR IV START INTRADERMA PRN; -LIDOCAINE 1% INJ 10MG/ML (20 ML MDV) ONE; -MIDAZOLAM 2 MG/2 ML VIAL ONE; -ROPIVACAINE 5MG/ML 20ML VIAL ONE; -fentaNYL (PF) 50 MCG/ML 2 ML AMP ONE
[2021-12-09 08:21] VITALS: TEMP 97.9
[2021-12-09] MEDS ORDERED: PROPOFOL 10 MG/ML 20 ML VIAL IV ONE (09:20)
[2021-12-09] MEDS ORDERED: ROPIVACAINE 5MG/ML 20ML VIAL ONE (09:20)
[2021-12-09] MEDS ORDERED: methylPREDNISolone ACETATE 40 MG/ML 1 ML VIAL ONE (09:20)
[2021-12-09] MEDS ORDERED: fentaNYL (PF) 50 MCG/ML 2 ML AMP ONE (09:20)
[2021-12-09] MEDS ORDERED: MIDAZOLAM 2 MG/2 ML VIAL ONE (09:20)
--- NOTE | 2021-12-09 09:46 | P.PCN ---
Date of Procedure: 12/09/21 Procedure(s) Performed: PREOPERATIVE DIAGNOSIS: Cervical spondylosis with Facet Arthropathy without myelopathy. POSTOPERATIVE DIAGNOSIS: Cervical spondylosis with Facet Arthropathy without myelopathy. PROCEDURES: Radiofrequency thermocoagulation, Right C4, C5, C6 medial branch with Fluroscopy [place](fluoroscopy was available in Radiology department ) (to denervate the facet joint at Right C4- 5 , C5- 6 ) ANESTHESIA: Monitored anesthesia care as per anesthesia department . EBL: Minimal PROCEDURE INDICATION: The patient with neck pain secondary to cervical arthropathy who had more than 50% relief of her pain with previous diagnostic cervical medial branch block. PROCEDURE DESCRIPTION / TECHNIQUE: The patient was seen and identified in the preoperative area. Risks, benefits, complications, and alternatives were discussed with the patient, the patient agreed to proceed with the procedure and signed the consent. IV was started. Vital signs remained stable throughout the procedure. Patient was taken to the OR and time out was completed. The patient was placed in the lateral position on the procedure table( right side up ). The cervical area was prepped and draped in the usual sterile fashion. Critical pause was taken. Vital signs were closely monitored during the procedure. Conscious sedation was used during the procedure to decrease patients anxiety. Using cross-table lateral fluoroscopy, the centroid of the trapezoid of right C4, C5, and C6 were identified, marked, and localized with 1% lidocaine. Subsequently, a 20 [id number] radiofrequency cannula with a 10-mm active tip was advanced guided by fluoroscopy to the centroid of the trapezoid of right C4, C5, and C6 . Needle tip position was confirmed at the centroid of the trapezoids of right C4, C5, and C6 with anteroposterior fluoroscopy. Each site then underwent sensory testing at 50 Hz and 0 to 1 volt and motor testing at 2 Hz and 0 to 3 volt with local stimulation, but no radicular symptoms down the arm. Thereafter each sites underwent radiofrequency thermocoagulation at 80 degrees celsius for 90 seconds after injecting 0.5 ml of PF Ropivacaine 0.5 %. After thermocoagulation, 1 ml of the block solution containing Depo-Medrol 40 mg and 3 mL of preservative-free normal saline was injected at the right C4, C5, and C6 levels after negative aspiration of CSF and blood and with no paresthesias. Cannulas were retracted while injecting lidocaine 1% until the needle is out. Skin was cleansed and bandages were applied. COMPLICATIONS: No acute complications. DISPOSITION / PLANS: The patient was placed in a supine position and transferred to the recovery area in a stable condition for observation and was discharged from the recovery room after meeting discharge criteria. Home discharge instructions given to the patient by the staff. The patient was reexamined prior to discharge. The patient will schedule a follow up in the clinic in 2-4 weeks.
[2021-12-09] MEDS ORDERED: IV FLUID CONTINUATION 1,000 ML IV ONE (09:49)
[2021-12-09 10:10] VITALS: BP 133/76; PULSE 78; RESP 18
--- NOTE | 2021-12-09 10:53 | FL ---
Fluoroscopy History: RADIO FREQ CERVICAL RADIO FREQ CERVICAL, AYAH, 4 SEC FLUORO, 3 IMAGES SENT
== END 2021-12-09 10:21 | disposition home or self-care (01) ==
LOC: ORPAIN 08:09
PROVIDERS: ATTEND Specialist
DX: M47.812 Spondylosis without myelopathy or radiculopathy, cervical region (principal); M54.2 Cervicalgia; F41.9 Anxiety disorder, unspecified; G43.909 Migraine, unspecified, not intractable, without status migrainosus
CPT/HCPCS: 64633; 64634

== ENCOUNTER → 2021-12-12 | Outpatient (CLI) | payer BC ==
[2021-12-12 11:54] VITALS: BP 127/92; PULSE 68; RESP 18; TEMP 98.5
--- NOTE | 2021-12-12 14:49 | P.PAINPG ---
PQRS Measure Charge Sheet Comment: A 56 yr old female with a history of severe and chronic low back pain secondary to lumbar degenerative disc diseases and lumbar spondylosis with facet arthropathy without myelopathy presents today for medication refills. Pain level is currently at 4/10 in intensity, constant, localized in the L lower lumbar spine, sore in character w shooting towards the L hip. Pain is provoked by acitvity, lifting/ standing for periods of 30 min or more. Pain is alleviated with chiropractic treatments as needed, massage therapy at home, heat, ice, topicals, medications, laying supine, repositioning and rest. Interventional pain procedures completed include BL RFA C4-6, L Bursa Trochanteric Injxn Patient is currently on Bronson , Ibuprofen , Mobic Patient denies any side effects of the medication(s), denies excessive drowsiness or sleepiness, denies suicidal ideation and reports that the current pain medication is helping to control the pain and improve activities of daily living. Patient denies any motor or sensory deficits. Patient denies any fever or night sweats, denies any change in the bowel movements or urination. Physical Examination: -Constitutional: Cooperative. Not in acute distress . - Neurologic: Cranial nerve II to XII intact. No focal neurological deficits. - Psychatric: Alert & oriented x 3. Matching mood & appropriate affect. Judgment and insight intact. - Musculoskeletal: Cervical spine: Muscle bulk/ tone/ strength in the bilateral upper extremities normal Vertebral body tenderness to palpation over Spurling test positive Distraction test positive Facet loading test positive Thoracic spine Muscle bulk / tone/ strength in the bilateral paraspinal muscles normal Vertebral body tender to palpation over Facet loading test positive Lumbar spine: Pain w <45 LLE Abduction Motor bulk/ tone/ strength lower extremities , thigh and legs : 5/5 Deep tendon reflexes : Normal Knee Jerk. Normal Ankle Jerk . Vertebral body tenderness to palpation over Lumbar Facet Loading Test positive Straight Leg Raise: positive at 30 degrees right side/ left side Gaenslen's Test positive Sacral spine : Severe tenderness over the Sacroiliac joint: right side / left side Range of motion: Flexion of the lumbar spine <60 degrees Range of motion: Extension of the lumbar spine <20 degrees Gaenslen's Test positive Cesar's Test positive Lisa test: positive right side / left side Thigh Thrust Test Sacral Thrust Test Assessment and plan: Chronic low back pain secondary to lumbar degenerative disc disease , lumbar spondylosis with facet arthropathy without myelopathy Recommendation of L Hip Trochanteric Bursa injection. May need a seires, up to 3 within a 6 mo period, for optimal pain relief. Risks, benefits of procedure discussed and pt verbalized understanding. Denies anticoagulant use or medical history of diabetes. Chronic and current use of high-risk medication (Opioids). The patient was counseled about risk of opioid use, psychological risk associated with opioids and was orally counseled to not overuse , divert or sell medications. Pt is to store medication in a safe location. The patient is counseled against driving while using narcotic medications and also not to use alcohol or any illicit recreational drugs. Patient verbalized understanding that the lack of compliance will result in failure to renew narcotic prescription(s) as well as possible discharge from the clinic Diagnoses, prognosis and treatment options including but not limited to physical therapy, surgical interventions, interventional therapies and medication management including narcotics and adjuvant medication were discussed. All patient questions answered MAPS reviewed and it was appropriate. UDS from 05/02/21 reviewed and consistent. Urine for UDS collected today 12/12/21. Narcotic and opiate agreement renewed today 12/12/21 Prescription refill for Bronson /325mg # w 1 RF I have spent less than 30 minutes on patient care today. Dr Abad was available by phone for the evaluation of this patient. The time was used to review the medical records including relevant urine studies and Prescription history (MAPs), review of the available imaging, evaluation and examination of the patient, coordination of care with the medical staff and if applicable referring physicians, as well as creation of the medical record PQRS Narrative: Smoking Status Never smoker Narcotic Agreement Date Signed 09/20/20 Hx Alcohol Use (MH) Yes: rare Home Medications: Ambulatory Orders lamoTRIgine [LaMICtal] 400 mg PO QAM 03/31/16 traZODone HCL [Desyrel] 100 mg PO HS 05/11/16 buPROPion HCL [Wellbutrin XL] 300 mg PO DAILY 03/14/21 Ibuprofen [Motrin] 800 mg PO Q8H 30 Days #90 tab 10/17/21 Meloxicam [Mobic] 7.5 mg PO DAILY PRN 12/08/21 HYDROcodone/APAP 7.5-325MG [Bronson 7.5-325] 1 tab PO Q8H PRN 30 Days #90 tab 12/12/21 HYDROcodone/APAP 7.5-325MG [Bronson 7.5-325] 1 tab PO Q8HR PRN 30 Days #90 tab 12/12/21 Controlled Substance Measures - Controlled Substance Measures Is patient prescribed a controlled substance at discharge?: Yes When asked, does pt state using other controlled substances?: No If prescribed controlled substance>3 days was MAPS reviewed?: Yes If Rx opioid, was Start Talking consent form obtained?: Yes Was information provided regarding opioid addiction?: Yes
== END ==
LOC: PNWHC3 08:26
PROVIDERS: ATTEND Specialist
DX: M47.816 Spondylosis without myelopathy or radiculopathy, lumbar region (principal); M51.36 Other intervertebral disc degeneration, lumbar region; G89.29 Other chronic pain; Z79.891 Long term (current) use of opiate analgesic
CPT/HCPCS: 80307; 99212; G0482

== ENCOUNTER → 2022-02-15 | Outpatient (CLI) | payer BC ==
--- NOTE | 2022-02-15 10:30 | P.PN ---
Subjective Progress Note Date: 02/15/22 The follow-up visit for this 57 years old female ,with a chronic history of severe neck pain , she is diagnosed with cervical radiculopathy ,cervical spondylosis , cervical foraminal stenosis, and sacroiliitis, recently we have done RFA of the Right medial branch cervical area , she improved her neck pain significantly, the pain controlled between interventional pain management and medication management, currently she is complaining of severe hip pain with radiation to the lateral aspect of the hip bilaterally side more than the right side, she denies any motor or sensory deficit, she had no fever or night sweats. She denies any change in the bowel movement or urination and she is currently on [place] 7.5/325 every 8 hours , cleaning 600 mg 3 times a day when necessary ,she denies any side effects of the medication she denies any excessive drowsiness or sleepiness and shape of the current medication is not helping enough to control her pain, denies any motor or sensory deficit in the lower extremity, she is doing home exercises without any benefit Physical Examinations : -Constitutiona : Cooperative , not in acute distress . -HEENT : nech : supple , no Lymphadenopathy , normal thyroid size . : eyes : no ptosis , no icterus, no photophobia . - neurologic : Cranial nerve II to XII intact , no focal neurological deffecit . -psychatric : alert , oriented X 3 , appropriate affect , intact judgment and insight . -Lymphatic : no Lymphadenopathy . - musculoskeltal : Cervical Spine motor stregnth in the deltoid and biceps, normal right side , normal Left side motor stregnth biceps and the wrist extensors normal right side ,normal left side . motor stregnth in the triceps muscle . normal Right side , normal Left side Lumber spine moter stegnth lower extremities ,thigh and legs 5/5 Right side , 5/5 Left side deep tendon reflexes : normal Knee Jerk , normal ankle Jerk lumber facet Loading Test =positive Right , positive Left Range of motion of the lumbar spine Flexion 30 degrees, extension 10 degrees strait leg raising test = positive at 60 degree Fabere test= positive Right , and positive LT . Sever tenderness over the Sacroiliac joint on the Left sides Gaenslen test= positive left . Seated flexion test= positive Left . Distraction test= positive left Severe tenderness over the left trochanteric bursa Assessment and plan= chronic neck pain secondary to cervical degenerative disc disease , cervical spondylosis with lumbar facet arthropathy , and myofascial pain syndrome and cervical area. Bilateral trochanteric bursitis chronic and current use of high-risk medication (opioids) Patient denies any side effects of the current pain medication and the current treatment/medication helping the patient to do activity of daily living , Diagnoses, prognosis, treatment options, including but not limited to physical therapy, medication management, interventional therapies, and surgery, were discussed with the patient All the questions answered The narcotic consent was signed and patient agreed and understood the side effects and complications of opioid treatment. Patient signed the narcotic agreement, and was orally counseled, not to overuse, not to abuse, not to Divert , not tp sell pain medication, and to take it as prescribed only, Patient was counseled not to drive or operate heavy equipment while using narcotic medication, and advised not to use alcohol or any Illicit drugs while using the narcotis. understanding that lack of compliance with any of the above instructions, will likely to cause discharge from, the pain service, not to renew his narcotic prescriptions MAPS Reviwed and it was apropriate . Urine drug screen checked was appropriate Medication managements= refil [place] 7.5/325 every 8 hours, dispense 90 with 1 refill Motrine 800 a day dispense 90 with one refill Interventions= she could benefit from a left-sided trochanteric bursa steroid injection steroid injection Patient will follow up in the pain clinic in 2 months Time with Patient: Less than 30 PQRS Measure Charge Sheet Measure #130: Documentation of Current Meds in Medical Chart: Patient's medications documented in chart Measure #226: Tobacco Use: Screen & Cessation Intervention: Pt not a tobacco user Measure #111: Pneumonia Vaccination: Pneumococcal vaccine administered or previously received Measure #47: Advance Care Plan: Advance care planning discussed & documented, pt chose/unable to give Measure #412: Opioid Treatment Agreement: Documented signed opioid trtmnt agreemnt min once during opioid trtmnt Measure #408: Opioid Therapy Follow-up Evaluation: Patient had f/u eval minimum every 3 months during opioid therapy Measure #317: Preventitive Care & Scrn High Bld Press & F/U: Normal blood pressure, f/u not required Measure #128: Body Mass Index (BMI) Screening & Follow-up: BMI documented ABOVE normal parameters - f/u documented Measure #131: Pain Assessment & Follow-up: Pain positive & plan documented, Follow-up scheduled Measure #431: Unhealthy Alcohol Use Preventative Care & Scrn: Patient not identified as an unhealthy alcohol use Time with Patient: Less than 30 Objective - Vital Signs Vital signs: Intake & Output 02/14/22 02/15/22 02/15/22 18:59 06:59 18:59 Weight 77.111 kg
[2022-02-15 11:04] VITALS: BP 116/80; PULSE 75; RESP 18; TEMP 98
== END | disposition home or self-care (01) ==
LOC: PNWHC3 09:19
PROVIDERS: ATTEND Specialist
DX: M50.30 Other cervical disc degeneration, unspecified cervical region (principal); M46.92 Unspecified inflammatory spondylopathy, cervical region; M47.892 Other spondylosis, cervical region
CPT/HCPCS: 99211

== ENCOUNTER 2022-03-23 07:27 | Day surgery (SDC) | payer BC ==
[2022-03-23 07:47] VITALS: TEMP 97.3
[2022-03-23] MEDS ORDERED: LACTATED RINGERS 1,000 ML IV ONE (08:03)
[2022-03-23] MEDS ORDERED: ROPIVACAINE 5 MG/ML 20 ML AMPULE ONE (08:14)
[2022-03-23] MEDS ORDERED: methylPREDNISolone ACETATE 80 MG/ML 1 ML VIAL ONE (08:14)
[2022-03-23] MEDS ORDERED: MIDAZOLAM 2 MG/2 ML VIAL ONE (08:14)
[2022-03-23] MEDS ORDERED: fentaNYL (PF) 50 MCG/ML 2 ML AMP ONE (08:14)
[2022-03-23] MEDS ORDERED: IV FLUID CONTINUATION 1,000 ML IV ONE (08:30)
[2022-03-23] MEDS ORDERED: LACTATED RINGERS 1,000 ML IV SCH (08:30)
--- NOTE | 2022-03-23 08:32 | P.PCN ---
Date of Procedure: 03/23/22 Description of Procedure: Pre OP diagnoses: Bilateral trochanteric bursitis Postoperative diagnosis: I lateral trochanteric bursitis. Operation: Right trochanteric bursa steroid injection under fluoroscopy guidance. Anesthesia: IV sedation with Versed 2mg with lidocaine 1% 2 mL Complications: none . Fluoroscopy image saved and stored Description of the procedure: patient had history of severe low back pain and hip pain secondary to trochanteric bursitis for this reason patient was a good candidate to have bilateral trochanteric bursa steroid injection which hopefully it will help his pain, risks and benefits of the procedure including but not limited to risk of infection and bleeding. She was assessed by physical therapist and does have some leg length discrepancy and is being referred for shoe insoles to correct the discrepancy. Patient was taken to the operating room placed in supine position or standard monitors applied patient and after induction of anesthesia the back and the hip area prepped with chlorhexidine 3 times, and under sterile technique using 25- gauge needle for skin and subcutaneous tissue infiltration was first admitted the left trochanteric bursa injection at 22-gauge Quincke-type spinal needle advanced slowly under fluoroscopy and placed in the left trochanteric bursa needle placement confirmed with AP view and after appropriate needle placement confirmed under fluoroscopy 4 ML of ropivacaine 0.5% mixed with 40 mg of Depo- Medrol injected after negative aspiration for heme and there was no CSF and there was no paresthesia during the injection and needle removed and a dressing applied and the same procedure repeated at the left side, patient tolerated the procedure well without any complication and she will follow up with the pain clinic in a few weeks and patient discharged home in stable condition Disposition: Patient will follow up in clinic as needed for bursa and cervical spine related issues.
[2022-03-23 08:36] VITALS: RESP 15
--- NOTE | 2022-03-23 08:47 | FL ---
Intraoperative/procedural fluoroscopic services were provided. Total fluoroscopy time is 9 seconds wi th a total of 2 submitted images to PACS. Please see the operative/procedural note for further detail s.
[2022-03-23 08:50] VITALS: BP 90/64; PULSE 75
== END 2022-03-23 09:11 | disposition home or self-care (01) ==
LOC: ORPAIN 07:27
PROVIDERS: ATTEND Anesthesiology
DX: M70.61 Trochanteric bursitis, right hip (principal); M70.62 Trochanteric bursitis, left hip
CPT/HCPCS: 77002; 20610; J2250; J1040; J3010; J2795; 99152

== ENCOUNTER → 2022-04-12 | Outpatient (CLI) | payer BC ==
[2022-04-12 09:29] VITALS: BP 115/79; PULSE 84; RESP 18; TEMP 98.4
--- NOTE | 2022-04-12 15:04 | P.PAINPG ---
PQRS Measure Charge Sheet Comment: A 57 yr old female with a history of severe and chronic neck pain secondary to cervical DDD and spondylosis with facet arthropathy without myelopathy presents today for medication refills and evaluation s/p BL trochanteric injection. Pt states she experienced 80% pain relief x 2-3 wks s/p procedure. Pain level is provoked at 6 /10 in intensity, constant, localized in the cervical spine, burning in character w shooting towards the BL shoulders, R>L. Pain is provoked by UE lifting. Pain is alleviated with home exercise regimen per kamilah, chiropractic treatments and massage as needed, heat, meds (Motrin), topicals, repositioning and rest. Hasn't attended PT due to excessive out of pocket costs. Interventional pain procedures completed include BL Trochanteric injections, R RFA C4-C6, BL SI injection Patient is currently on [place] Patient denies any side effects of the medication(s), denies excessive d rowsiness or sleepiness, denies suicidal ideation and reports that the current pain medication is helping to control the pain and improve activities of daily living. Patient denies any motor or sensory deficits. Patient denies any fever or night sweats, denies any change in the bowel movements or urination. Physical Examination: -Constitutional: Cooperative. Not in acute distress . - Neurologic: Cranial nerve II to XII intact. No focal neurological deficits. - Psychatric: Alert & oriented x 3. Matching mood & appropriate affect. Judgment and insight intact. - Musculoskeletal: Cervical spine: Muscle bulk/ tone/ strength in the bilateral upper extremities normal Vertebral body tenderness to palpation over C6 Spurling test positive Distraction test positive Facet loading test positive Thoracic spine Muscle bulk / tone/ strength in the bilateral paraspinal muscles normal Vertebral body tender to palpation over Facet loading test positive Lumbar spine: Motor bulk/ tone/ strength lower extremities , thigh and legs : 5/5 Deep tendon reflexes : Normal Knee Jerk. Normal Ankle Jerk . Vertebral body tenderness to palpation over Lumbar Facet Loading Test positive Straight Leg Raise: positive at 30 degrees right side/ left side Gaenslen's Test positive Sacral spine : Severe tenderness over the Sacroiliac joint: right side / left side Range of motion: Flexion of the lumbar spine <60 degrees Range of motion: Extension of the lumbar spine <20 degrees Gaenslen's Test positive Lisa test: positive right side / left side Thigh Thrust Test Sacral Thrust Test Assessment and plan: Chronic neck pain secondary to cervical DDD, spondylosis with facet arthropathy without myelopathy Chronic and current use of high-risk medication (Opioids). The patient was counseled about risk of opioid use, psychological risk associated with opioids and was orally counseled to not overuse , divert or sell medications. Pt is to store medication in a safe location. The patient is counseled against driving while using narcotic medications and also not to use alcohol or any illicit recreational drugs. Patient verbalized understanding that the lack of compliance will result in failure to renew narcotic prescription(s) as well as possible discharge from the clinic Diagnoses, prognosis and treatment options including but not limited to physical therapy, surgical interventions, interventional therapies and medication management including narcotics and adjuvant medication were discussed. All patient questions answered MAPS reviewed and it was appropriate. UDS from Nov 2021 reviewed and consistent. Prescription refill for Ibu 800mg #90, [place] 7.5/325mg #90 w 1 RF I have spent less than 30 minutes on patient care today. Dr Abad was available by phone for the evaluation of this patient. The time was used to review the medical records including relevant urine studies and Prescription history (MAPs), review of the available imaging, evaluation and examination of the patient, coordination of care with the medical staff and if applicable referring physicians, as well as creation of the medical record PQRS Narrative: Smoking Status Never smoker Narcotic Agreement Date Signed 02/15/22 Hx Alcohol Use (MH) Yes: rare Home Medications: Ambulatory Orders lamoTRIgine [LaMICtal] 400 mg PO QAM 03/31/16 traZODone HCL [Desyrel] 100 mg PO HS 05/11/16 buPROPion HCL [Wellbutrin XL] 300 mg PO DAILY 03/14/21 HYDROcodone/APAP 7.5-325MG [[place] 7.5-325] 1 tab PO Q8HR PRN 30 Days #90 tab 04/12/22 HYDROcodone/APAP 7.5-325MG [[place] 7.5-325] 1 tab PO Q8HR PRN 30 Days #90 tab 04/12/22 Ibuprofen [Motrin] 800 mg PO Q8H 30 Days #90 tab 04/12/22 Controlled Substance Measures - Controlled Substance Measures Is patient prescribed a controlled substance at discharge?: Yes When asked, does pt state using other controlled substances?: Yes If Rx opioid, was Start Talking consent form obtained?: Yes Was information provided regarding opioid addiction?: Yes
== END ==
LOC: PNWHC3 08:13
PROVIDERS: ATTEND Specialist
DX: M47.812 Spondylosis without myelopathy or radiculopathy, cervical region (principal); M50.30 Other cervical disc degeneration, unspecified cervical region; Z87.891 Personal history of nicotine dependence
CPT/HCPCS: 99211

== ENCOUNTER → 2022-06-07 | Outpatient (CLI) | payer BC ==
[2022-06-07 10:03] VITALS: BP 133/85; PULSE 70; RESP 18; TEMP 98.1
--- NOTE | 2022-06-07 15:09 | P.PAINPG ---
PQRS Measure Charge Sheet Comment: A 57 yr old female with a history of severe and chronic neck pain secondary to cervical DDD and spondylosis with facet arthropathy without myelopathy presents today for medication refills. Pain level is provoked at 5/10 in intensity, constant, localized in the cervical spine, sharp in character w shooting towards the BL shoulder, R>L. Pain is provoked by lifting. Pain is alleviated with mediations, topicals, injections, heat, ice, chiropractic treatments as needed, massage therapy as needed, hot showers, home stretching regimen, repositioning and rest. Patient is currently on [place] 7.5/325mg #90 Patient denies any side effects of the medication(s), denies excessive drowsiness or sleepiness, denies suicidal ideation and reports that the current pain medication is helping to control the pain and improve activities of daily living. Patient denies any motor or sensory deficits. Patient denies any fever or night sweats, denies any change in the bowel movements or urination. Physical Examination: -Constitutional: Cooperative. Not in acute distress . - Neurologic: Cranial nerve II to XII intact. No focal neurological deficits. - Psychatric: Alert & oriented x 3. Matching mood & appropriate affect. Judgment and insight intact. - Musculoskeletal: Cervical spine: Muscle bulk/ tone/ strength in the bilateral upper extremities normal Vertebral body tenderness to palpation over Spurling test positive Distraction test positive Facet loading test positive TTP Thoracic spine Muscle bulk / tone/ strength in the bilateral paraspinal muscles normal Vertebral body tender to palpation over Facet loading test positive TTP Lumbar spine: Motor bulk/ tone/ strength lower extremities , thigh and legs : 5/5 Deep tendon reflexes : Normal Knee Jerk. Normal Ankle Jerk . Vertebral body tenderness to palpation over Lumbar Facet Loading Test positive Straight Leg Raise: positive at 30 degrees right side/ left side Gaenslen's Test positive Sacral spine : Severe tenderness over the Sacroiliac joint: right side / left side Range of motion: Flexion of the lumbar spine <60 degrees Range of motion: Extension of the lumbar spine <20 degrees Gaenslen's Test positive R / L Lisa test: positive right side / left side Thigh Thrust Test positive R / L Sacral Thrust Test positive R/ L Assessment and plan: Chronic neck pain secondary to cervical DDD, spondylosis with facet arthropathy without myelopathy Chronic and current use of high-risk medication (Opioids). The patient was counseled about risk of opioid use, psychological risk associated with opioids and was orally counseled to not overuse , divert or sell medications. Pt is to store medication in a safe location. The patient is counseled against driving while using narcotic medications and also not to use alcohol or any illicit recreational drugs. Patient verbalized understanding that the lack of compliance will result in failure to renew narcotic prescription(s) as well as possible discharge from the clinic Diagnoses, prognosis and treatment options including but not limited to physical therapy, surgical interventions, interventional therapies and medication management including narcotics and adjuvant medication were discussed. All patient questions answered MAPS reviewed and it was appropriate. Prescription refill for [place] 7.5/325mg # 90 w 1 RF I have spent less than 30 minutes on patient care today. Dr Abad was available by phone for the evaluation of this patient. The time was used to review the medical records including relevant urine studies and Prescription history (MAPs), review of the available imaging, evaluation and examination of the patient, coordination of care with the medical staff and if applicable referring physicians, as well as creation of the medical record PQRS Narrative: Smoking Status Never smoker Narcotic Agreement Date Signed 02/15/22 Hx Alcohol Use (MH) Yes: rare Home Medications: Ambulatory Orders lamoTRIgine [LaMICtal] 400 mg PO QAM 03/31/16 traZODone HCL [Desyrel] 100 mg PO HS 05/11/16 buPROPion HCL [Wellbutrin XL] 300 mg PO DAILY 03/14/21 HYDROcodone/APAP 7.5-325MG [[place] 7.5-325] 1 tab PO Q8HR PRN 30 Days #90 tab 04/12/22 HYDROcodone/APAP 7.5-325MG [[place] 7.5-325] 1 tab PO Q8HR PRN 30 Days #90 tab 04/12/22 Ibuprofen [Motrin] 800 mg PO Q8H 30 Days #90 tab 04/12/22 Controlled Substance Measures - Controlled Substance Measures Is patient prescribed a controlled substance at discharge?: Yes When asked, does pt state using other controlled substances?: Yes If prescribed controlled substance>3 days was MAPS reviewed?: Yes
== END ==
LOC: PNWHC3 08:03
PROVIDERS: ATTEND Specialist
DX: M50.30 Other cervical disc degeneration, unspecified cervical region (principal); M47.812 Spondylosis without myelopathy or radiculopathy, cervical region; G89.29 Other chronic pain; Z79.891 Long term (current) use of opiate analgesic
CPT/HCPCS: 80307; 99212; G0482

== ENCOUNTER → 2022-08-02 | Outpatient (CLI) | payer BC ==
[2022-08-02 09:58] VITALS: BP 121/87; PULSE 69; RESP 18; TEMP 98.4
--- NOTE | 2022-08-02 14:30 | P.PAINPG ---
PQRS Measure Charge Sheet Comment: A 57 yr old female with a history of severe and chronic neck pain secondary to cervical DDD and spondylosis with facet arthropathy without myelopathy presents today for medication refills. Pain level is provoked at 5 /10 in intensity, constant, localized in the cervical spine, burning in character w shooting towards the BL shoulders. Pain is provoked by rotation. Pain is alleviated with medications, topicals, injections, ice, chiropractic treatments as needed with last visit in 2021, daily home stretching regimen, massage therapy monthly with last visit 2 weeks ago, repositioning and rest. Interventional pain procedures completed include BL RFA C4-C6 Patient is currently on [place] 7.5/325mg #90 Patient denies any side effects of the medication(s), denies excessive drowsiness or sleepiness, denies suicidal ideation and reports that the current pain medication is helping to control the pain and improve activities of daily living. Patient denies any motor or sensory deficits. Patient denies any fever or night sweats, denies any change in the bowel movements or urination. Physical Examination: -Constitutional: Cooperative. Not in acute distress . - Neurologic: Cranial nerve II to XII intact. No focal neurological deficits. - Psychatric: Alert & oriented x 3. Matching mood & appropriate affect. Judgment and insight intact. - Musculoskeletal: Cervical spine: Muscle bulk/ tone/ strength in the bilateral upper extremities normal Vertebral body tenderness to palpation over Spurling test positive Distraction test positive Facet loading test positive TTP R> L Thoracic spine Muscle bulk / tone/ strength in the bilateral paraspinal muscles normal Vertebral body tender to palpation over Facet loading test positive TTP Lumbar spine: Motor bulk/ tone/ strength lower extremities , thigh and legs : 5/5 Deep tendon reflexes : Normal Knee Jerk. Normal Ankle Jerk . Vertebral body tenderness to palpation over Lumbar Facet Loading Test positive Straight Leg Raise: positive at 30 degrees right side/ left side Gaenslen's Test positive Sacral spine : Severe tenderness over the Sacroiliac joint: right side / left side Range of motion: Flexion of the lumbar spine <60 degrees Range of motion: Extension of the lumbar spine <20 degrees Gaenslen's Test positive R / L Lisa test: positive right side / left side Thigh Thrust Test positive R / L Sacral Thrust Test positive R/ L Assessment and plan: Chronic neck pain secondary to cervical DDD, spondylosis with facet arthropathy without myelopathy Chronic and current use of high-risk medication (Opioids). The patient was counseled about risk of opioid use, psychological risk associated with opioids and was orally counseled to not overuse , divert or sell medications. Pt is to store medication in a safe location. The patient is counseled against driving while using narcotic medi cations and also not to use alcohol or any illicit recreational drugs. Patient verbalized understanding that the lack of compliance will result in failure to renew narcotic prescription(s) as well as possible discharge from the clinic Diagnoses, prognosis and treatment options including but not limited to physical therapy, surgical interventions, interventional therapies and medicat ion management including narcotics and adjuvant medication were discussed. All patient questions answered MAPS reviewed and it was appropriate. UDs from 06/07/22 reviewed and will redo today 08/02/22. Prescription refill for [place] 7.5/325mg #90, Ibu #90 w 1 RF I have spent less than 30 minutes on patient care today. Dr Abad was available by phone for the evaluation of this patient. The time was used to review the medical records including relevant urine studies and Prescription history (MAPs), review of the available imaging, evaluation and examination of the patient, coordination of care with the medical staff and if applicable referring physicians, as well as creation of the medical record PQRS Narrative: Smoking Status Never smoker Narcotic Agreement Date Signed 02/15/22 Hx Alcohol Use (MH) Yes: rare Home Medications: Ambulatory Orders lamoTRIgine [LaMICtal] 400 mg PO QAM 03/31/16 traZODone HCL [Desyrel] 100 mg PO HS 05/11/16 buPROPion HCL [Wellbutrin XL] 300 mg PO DAILY 03/14/21 HYDROcodone/APAP 7.5-325MG [[place] 7.5-325] 1 tab PO Q8HR PRN 30 Days #90 tab 06/07/22 HYDROcodone/APAP 7.5-325MG [[place] 7.5-325] 1 tab PO Q8HR PRN 30 Days #90 tab 06/07/22 Ibuprofen [Motrin] 800 mg PO Q8H 30 Days #90 tab 06/07/22 Controlled Substance Measures - Controlled Substance Measures Is patient prescribed a controlled substance at discharge?: Yes When asked, does pt state using other controlled substances?: Yes If prescribed controlled substance>3 days was MAPS reviewed?: Yes
== END | disposition home or self-care (01) ==
LOC: PNWHC3 09:00
PROVIDERS: ATTEND Specialist
DX: Z51.81 Encounter for therapeutic drug level monitoring (principal); M50.30 Other cervical disc degeneration, unspecified cervical region; M47.812 Spondylosis without myelopathy or radiculopathy, cervical region; M25.552 Pain in left hip; M25.551 Pain in right hip; G43.909 Migraine, unspecified, not intractable, without status migrainosus; F41.9 Anxiety disorder, unspecified; F32.A Depression, unspecified; R30.9 Painful micturition, unspecified; Z79.891 Long term (current) use of opiate analgesic
CPT/HCPCS: 80307; 99212; G0482

== ENCOUNTER → 2022-09-27 | Outpatient (CLI) | payer BC ==
[2022-09-27 09:37] VITALS: BP 151/84; PULSE 102; RESP 15; TEMP 98.7
--- NOTE | 2022-09-27 14:30 | P.PAINPG ---
PQRS Measure Charge Sheet History and Exam Findings: All other causes of pain ruled out Comment: A 57 yr old female with a history of severe and chronic neck pain secondary to cervical DDD and spondylosis with facet arthropathy without myelopathy presents today for medication refills. Pt states she experienced 55% pain relief x 6 mo s/p R RFA C4-C5, C5-C6 procedure. Pain level is provoked at 6 /10 in intensity, constant, localized in the R cervical spine, burning in character w shooting towards the R hand and BL shoulders. Pain is provoked by rotation. Pain is alleviated with medications, topicals, injections, ice, chiropractic treatments as needed with last visit in 2021, daily home stretching regimen, massage therapy monthly with last visit 2 weeks ago, repositioning and rest. Oswestry axial pain score of 25. Interventional pain procedures completed include BL RFA C4-C6 Patient is currently on [place] 7.5/325mg #90, Ibu Patient denies any side effects of the medication(s), denies excessive drowsiness or sleepiness, denies suicidal ideation and reports that the current pain medication is helping to control the pain and improve activities of daily living. Patient denies any motor or sensory deficits. Patient denies any fever or night sweats, denies any change in the bowel movements or urination. Physical Examination: -Constitutional: Cooperative. Not in acute distress . - Neurologic: Cranial nerve II to XII intact. No focal neurological deficits. - Psychatric: Alert & oriented x 3. Matching mood & appropriate affect. Judgment and insight intact. - Musculoskeletal: Cervical spine: Muscle bulk/ tone/ strength in the bilateral upper extremities normal Vertebral body tenderness to palpation over Spurling test positive Distraction test positive Facet loading test positive on R C4-C5, C5-C6 Thoracic spine Muscle bulk / tone/ strength in the bilateral paraspinal muscles normal Vertebral body tender to palpation over Facet loading test positive TTP Lumbar spine: Motor bulk/ tone/ strength lower extremities , thigh and legs : 5/5 Deep tendon reflexes : Normal Knee Jerk. Normal Ankle Jerk . Vertebral body tenderness to palpation over Lumbar Facet Loading Test positive Straight Leg Raise: positive at 30 degrees right side/ left side Gaenslen's Test positive Sacral spine : Severe tenderness over the Sacroiliac joint: right side / left side Range of motion: Flexion of the lumbar spine <60 degrees Range of motion: Extension of the lumbar spine <20 degrees Gaenslen's Test positive R / L Lisa test: positive right side / left side Thigh Thrust Test positive R / L Sacral Thrust Test positive R/ L Assessment and plan: Chronic neck pain secondary to cervical DDD, spondylosis with facet arthropathy without myelopathy Recommendation of R RFA C4-C5, C5-C6. Pt exhibited sufficient and substantial pain relief w prior RFA procedure. Risk, benefits of procedure discussed and pt verbalized understanding. Protocol for discontinuation/ continuation of medications yessica procedure discussed. Chronic and current use of high-risk medication (Opioids). The patient was counseled about risk of opioid use, psychological risk associated with opioids and was orally counseled to not overuse , divert or sell medications. Pt is to store medication in a safe location. The patient is counseled against driving while using narcotic medications and also not to use alcohol or any illicit recreational drugs. Patient verbalized understanding that the lack of compliance will result in failure to renew narcotic prescription(s) as well as possible discharge from the clinic Diagnoses, prognosis and treatment options including but not limited to physical therapy, surgical interventions, interventional therapies and medication management including narcotics and adjuvant medication were discussed. All patient questions answered MAPS reviewed and it was appropriate. UDS from 08/02/22 reviewed and consistent. Prescription refill for [place] 7.5/325mg #90, Ibu #90 w 1 RF I have spent less than 30 minutes on patient care today. Dr Abad was available by phone for the evaluation of this patient. The time was used to review the medical records including relevant urine studies and Prescription history (MAPs), review of the available imaging, evaluation and examination of the patient, coordination of care with the medical staff and if applicable referring physicians, as well as creation of the medical record - Pain Location Right Neck Non-Pharmacological Interventions: Ice, Position/Reposition Pharmacological Interventions: Scheduled Medication, Topical Medication PQRS Narrative: Smoking Status Never smoker Narcotic Agreement Date Signed 02/15/22 Hx Alcohol Use (MH) Yes: OCCASIONAL Home Medications: Ambulatory Orders lamoTRIgine [LaMICtal] 400 mg PO QAM 03/31/16 traZODone HCL [Desyrel] 100 mg PO HS 05/11/16 buPROPion HCL [Wellbutrin XL] 300 mg PO DAILY 03/14/21 Ibuprofen [Motrin] 800 mg PO Q8H 30 Days #90 tab 08/02/22 HYDROcodone/APAP 7.5-325MG [[place] 7.5-325] 1 tab PO Q8HR PRN 30 Days #90 tab 09/27/22 HYDROcodone/APAP 7.5-325MG [[place] 7.5-325] 1 tab PO Q8HR PRN 30 Days #90 tab 09/27/22 Controlled Substance Measures - Controlled Substance Measures Is patient prescribed a controlled substance at discharge?: Yes
== END ==
LOC: PNWHC3 08:40
PROVIDERS: ATTEND Specialist
DX: M50.321 Other cervical disc degeneration at C4-C5 level (principal); M50.322 Other cervical disc degeneration at C5-C6 level; M47.812 Spondylosis without myelopathy or radiculopathy, cervical region; G89.29 Other chronic pain; Z79.891 Long term (current) use of opiate analgesic
CPT/HCPCS: 99211

== ENCOUNTER → 2022-11-22 | Outpatient (CLI) | payer BC ==
--- NOTE | 2022-12-07 15:55 | P.PAINPG ---
PQRS Measure Charge Sheet Comment: A 57 yr old female with a history of severe and chronic neck pain secondary to cervical DDD and spondylosis with facet arthropathy without myelopathy presents today for medication refills. Pain level is provoked at 6 /10 in intensity, constant, localized in the R cervical spine, burning in character w shooting towards the R hand and BL shoulders. Pain is provoked by rotation. Pain is alleviated with medications, topicals, injections, ice, chiropractic treatments as needed with last visit in 2021, daily home stretching regimen, massage therapy monthly with last visit 2 weeks ago, repositioning and rest. Oswestry axial pain score of 25. Interventional pain procedures completed include BL RFA C4-C6 Patient is currently on [place] 7.5/325mg #90, Ibu Patient denies any side effects of the medication(s), denies excessive drowsiness or sleepiness, denies suicidal ideation and reports that the current pain medication is helping to control the pain and improve activities of daily living. Patient denies any motor or sensory deficits. Patient denies any fever or night sweats, denies any change in the bowel movements or urination. Physical Examination: -Constitutional: Cooperative. Not in acute distress . - Neurologic: Cranial nerve II to XII intact. No focal neurological deficits. - Psychatric: Alert & oriented x 3. Matching mood & appropriate affect. Judgment and insight intact. - Musculoskeletal: Cervical spine: Muscle bulk/ tone/ strength in the bilateral upper extremities normal Vertebral body tenderness to palpation over Spurling test positive Distraction test positive Facet loading test positive on R C4-C5, C5-C6 Thoracic spine Muscle bulk / tone/ strength in the bilateral paraspinal muscles normal Vertebral body tender to palpation over Facet loading test positive TTP Lumbar spine: Motor bulk/ tone/ strength lower extremities , thigh and legs : 5/5 Deep tendon reflexes : Normal Knee Jerk. Normal Ankle Jerk . Vertebral body tenderness to palpation over Lumbar Facet Loading Test positive Straight Leg Raise: positive at 30 degrees right side/ left side Gaenslen's Test positive Sacral spine : Severe tenderness over the Sacroiliac joint: right side / left side Range of motion: Flexion of the lumbar spine <60 degrees Range of motion: Extension of the lumbar spine <20 degrees Gaenslen's Test positive R / L Lisa test: positive right side / left side Thigh Thrust Test positive R / L Sacral Thrust Test positive R/ L Assessment and plan: Chronic neck pain secondary to cervical DDD, spondylosis with facet arthropathy without myelopathy Chronic and current use of high-risk medication (Opioids). The patient was counseled about risk of opioid use, psychological risk associated with opioids and was orally counseled to not overuse , divert or sell medications. Pt is to store medication in a safe location. The patient is counseled against driving while using narcotic medications and also not to use alcohol or any illicit recreational drugs. Patient verbalized understanding that the lack of compliance will result in failure to renew narcotic prescription(s) as well as possible discharge from the clinic Diagnoses, prognosis and treatment options including but not limited to physical therapy, surgical interventions, interventional therapies and medication management including narcotics and adjuvant medication were discussed. All patient questions answered MAPS reviewed and it was appropriate. UDS from 08/02/22 reviewed and consistent. Prescription refill for [place] 7.5/325mg #90, Ibu #90 w 1 RF I have spent less than 30 minutes on patient care today. Dr Abad was available by phone for the evaluation of this patient. The time was used to review the medical records including relevant urine studies and Prescription history (MAPs), review of the available imaging, evaluation and examination of the patient, coordination of care with the medical staff and if applicable referring physicians, as well as creation of the medical record PQRS Narrative: Smoking Status Never smoker Narcotic Agreement Date Signed 02/15/22 Hx Alcohol Use (MH) Yes: OCCASIONAL Home Medications: Ambulatory Orders lamoTRIgine [LaMICtal] 400 mg PO QAM 03/31/16 traZODone HCL [Desyrel] 100 mg PO HS 05/11/16 buPROPion HCL [Wellbutrin XL] 300 mg PO DAILY 03/14/21 HYDROcodone/APAP 10-325MG [[place] 10-325] 1 tab PO Q6HR PRN 11/22/22 Ibuprofen [Motrin] 800 mg PO Q8H PRN 11/22/22 Controlled Substance Measures - Controlled Substance Measures Is patient prescribed a controlled substance at discharge?: Yes When asked, does pt state using other controlled substances?: No If prescribed controlled substance>3 days was MAPS reviewed?: Yes
== END ==
LOC: PNWHC3 08:46
PROVIDERS: ATTEND Specialist
DX: M50.321 Other cervical disc degeneration at C4-C5 level (principal); M50.322 Other cervical disc degeneration at C5-C6 level; M47.812 Spondylosis without myelopathy or radiculopathy, cervical region; G89.29 Other chronic pain; Z79.891 Long term (current) use of opiate analgesic
CPT/HCPCS: 99211

== ENCOUNTER 2022-11-23 12:29 | Day surgery (SDC) | payer BC ==
[2022-11-23 10:32] VITALS: TEMP 97
--- NOTE | 2022-11-23 11:26 | P.PCN ---
Date of Procedure: 11/23/22 Procedure(s) Performed: PREOPERATIVE DIAGNOSIS: Cervical spondylosis with Facet Arthropathy without myelopathy. POSTOPERATIVE DIAGNOSIS: Cervical spondylosis with Facet Arthropathy without myelopathy. PROCEDURES: Radiofrequency thermocoagulation, Right C4, C5, C6 medial branch with Fluroscopy [place](fluoroscopy was available in Radiology department ) (to denervate the facet joint at Right C4- 5 , C5- 6 ) ANESTHESIA: moderate sedation with Versed 2 mg, and fentanyl 100 g, sedation start time 1105 and finished at 1123. EBL: Minimal PROCEDURE INDICATION: The patient with neck pain secondary to cervical arthropathy who had more than 50% relief of her pain with previous diagnostic cervical medial branch block. PROCEDURE DESCRIPTION / TECHNIQUE: The patient was seen and identified in the preoperative area. Risks, benefits, complications, and alternatives were discussed with the patient, the patient agreed to proceed with the procedure and signed the consent. IV was started. Vital signs remained stable throughout the procedure. Patient was taken to the OR and time out was completed. The patient was placed in the lateral position on the procedure table( right side up ). The cervical area was prepped and draped in the usual sterile fashion. Critical pause was taken. Vital signs were closely monitored during the procedure. Conscious sedation was used during the procedure to decrease patients anxiety. Using cross-table lateral fluoroscopy, the centroid of the trapezoid of right C4, C5, and C6 were identified, marked, and localized with 1% lidocaine. Subsequently, a 20 [id number] radiofrequency cannula with a 10-mm active tip was advanced guided by fluoroscopy to the centroid of the trapezoid of right C4, C5, and C6 . Needle tip position was confirmed at the centroid of the trapezoids of right C4, C5, and C6 with anteroposterior fluoroscopy. Each site then underwent sensory testing at 50 Hz and 0 to 1 volt and motor testing at 2 Hz and 0 to 3 volt with local stimulation, but no radicular symptoms down the arm. Thereafter each sites underwent radiofrequency thermocoagulation at 80 degrees celsius for 90 seconds after injecting 0.5 ml of PF Ropivacaine 0.5 %. After thermocoagulation, 1 ml of the block solution containing Depo-Medrol 40 mg and 3 mL of preservative-free normal saline was injected at the right C4, C5, and C6 levels after negative aspiration of CSF and blood and with no paresthesias. Cannulas were retracted while injecting lidocaine 1% until the needle is out. Skin was cleansed and bandages were applied. COMPLICATIONS: No acute complications. DISPOSITION / PLANS: The patient was placed in a supine position and transferred to the recovery area in a stable condition for observation and was discharged from the recovery room after meeting discharge criteria. Home discharge instructions given to the patient by the staff. The patient was reexamined prior to discharge. The patient will schedule a follow up in the clinic in 2-4 weeks.
[2022-11-23 11:32] VITALS: RESP 20
--- NOTE | 2022-11-23 11:38 | FL ---
Intraoperative/procedural fluoroscopic services were provided for pain management. Total fluoroscopy time is 20.5 seconds with a total of 2 submitted images to PACS. Total DAP [id number] [id number]. Please see the operative note for further details.
[2022-11-23 12:03] VITALS: BP 118/83; PULSE 82
[~2022-11-23 12:29] MED LIST changes: +IV FLUID CONTINUATION 400 ML IV ONE; -LIDOCAINE 1% (10MG/ML) FOR IV START INTRADERMA PRN; +MIDAZOLAM 2 MG/2 ML VIAL ONE; +ROPIVACAINE 5MG/ML 20ML VIAL ONE; +fentaNYL (PF) 50 MCG/ML 2 ML AMP ONE; +methylPREDNISolone ACETATE 40 MG/ML 1 ML VIAL ONE
== END 2022-11-23 13:07 | disposition home or self-care (01) ==
LOC: ORPAIN 12:29
PROVIDERS: ATTEND Specialist
DX: M47.812 Spondylosis without myelopathy or radiculopathy, cervical region (principal); Z79.899 Other long term (current) drug therapy
CPT/HCPCS: 64633; 64634; 99152; J2250; J1030; J3010; J2795